=== PATIENT | male | born 1945 | race Caucasian/White ===

== ENCOUNTER 2023-04-19 21:23 | Inpatient (IN) | payer MEDICARE, BC ==
--- NOTE | 2023-04-19 22:25 | ED ---
General Adult HPI - General Chief complaint: Shortness of Breath Stated complaint: SOB, Leg Swelling Time Seen by Provider: 04/19/23 22:00 Source: patient Mode of arrival: ambulatory - History of Present Illness Initial comments: Dictation was produced using [employer] dictation software. please excuse any grammatical, word or spelling errors. Chief Complaint: 77-year-old male who wears home O2 presents to the ER for shortness breath History of Present Illness: Patient is 69-year-old male he has history of COPD, diabetes and heart failure. He states that his been feeling short of breath that his legs have been more swollen. Patient takes diuretics. He has had heart failure exacerbations in the past. Patient states that he doesn't have any chest pain. Denies any cough. No fevers or constitutional symptoms. The ROS documented in this emergency department record has been reviewed and confirmed by me. Those systems with pertinent positive or negative responses have been documented in the HPI. All other systems are other negative and/or noncontributory. - Related Data Allergies Allergy/AdvReac Type Severity Reaction Status Date / Time gabapentin AdvReac Unknown Verified 04/19/23 21:47 Review of Systems ROS Statement: Those systems with pertinent positive or pertinent negative responses have been documented in the HPI. ROS Other: All systems not noted in ROS Statement are negative. Past Medical History Past Medical History: COPD, Diabetes Mellitus Additional Past Medical History / Comment(s): Type 2 diabetic Past Surgical History: Cardiac Valve Replacement, Heart Catheterization With Stent Additional Past Surgical History / Comment(s): open heart surgery 2008 Past Psychological History: No Psychological Hx Reported Smoking Status: Former smoker Past Alcohol Use History: None Reported Past Drug Use History: None Reported General Exam - General Exam Comments Initial Comments: PHYSICAL EXAM: General Impression: Alert and oriented x3, not in acute distress HEENT: Normocephalic atraumatic, extra-ocular movements intact, pupils equal and reactive to light bilaterally, mucous membranes moist. Cardiovascular: Heart regular rate and rhythm Chest: Able to complete full sentences, no retractions, no tachypnea Abdomen: abdomen soft, non-tender, non-distended, no organomegaly Musculoskeletal: Pulses present and equal in all extremities, 2+ edema to the lower extremities Motor: no focal deficits noted Neurological: CN II-XII grossly intact, no focal motor or sensory deficits noted Skin: Intact with no visualized rashes Psych: Normal affect and mood Course Vital Signs 04/19/23 04/19/23 04/19/23 21:40 22:29 23:41 Temperature 97.7 F Pulse Rate 58 L 57 L 61 Respiratory 18 30 H 24 Rate Blood Pressure 176/77 129/84 140/65 O2 Sat by Pulse 96 95 94 L Oximetry EKG Findings - EKG Comments: EKG Findings:: My EKG interpretation: Ventricular rate 59, sinus bradycardia, right bundle branch block MA interval 240, QRS 182, QTC 488. No MA prolongation, no QTC prolongation, no ST or T-wave changes noted. No EKG for comparison Overall, this EKG is nonspecific Medical Decision Making - Medical Decision Making Was pt. sent in by a medical professional or institution (, PA, CRM ANALYST, urgent care, hospital, or long-term...) When possible be specific @ -No Did you speak to anyone other than the patient for history (EMS, parent, family, police, friend...)? What history was obtained from this source @ -No Did you review nursing and triage notes (agree or disagree)? Why? @ -I reviewed and agree with nursing and triage notes Were old charts reviewed (outside hosp., previous admission, EMS record, old EKG, old radiological studies, urgent care reports/EKG's, long-term records)? Report findings @ -No old charts were reviewed Differential Diagnosis (chest pain, altered mental status, abdominal pain women, abdominal pain men, vaginal bleeding, musculoskeletal, weakness, fever, dyspnea, syncope, headache, dizziness, GI bleed, back pain, seizure, CVA, palpatations, mental health)? @ -Differential Dyspnea: Coronary syndrome, arrhythmia, tamponade, asthma, COPD, pulmonary embolism, pneumonia, pneumothorax, pulmonary effusion, anaphylaxis, diabetic ketoacidosis, flailed chest, pulmonary contusion, diaphragmatic rupture, anemia, neuromuscular, this is not meant to be an all-inclusive list. EKG interpreted by me (3pts min.). @ -See above X-rays interpreted by me (1pt min.). @ -Chest x-ray with pleural effusion CT interpreted by me (1pt min.). @ -None done U/S interpreted by me (1pt. min.). @ -None done What testing was considered but not performed or refused? (CT, X-rays, U/S, labs)? Why? @ -None What meds were considered but not given or refused? Why? @ -None Did you discuss the management of the patient with other professionals (professionals i.e. , PA, CRM ANALYST, lab, RT, psych nurse, social sciences professor, barn worker, teacher, commanding officer homicide squad, director case)? Give summary @ -Labs imaging and clinical presentation Case discussed with Lizz from [facility] for admission Was smoking cessation discussed for >3mins.? @ -No Was critical care preformed (if so, how long)? @ -No Were there social determinants of health that impacted care today? How? (Homelessness, low income, unemployed, alcoholism, drug addiction, transportation, low edu. Level, literacy, decrease access to med. care, long term, rehab)? @ -No Was there de-escalation of care discussed even if they declined (Discuss DNR or withdrawal of care, Hospice)? DNR status @ -No What co-morbidities impacted this encounter? (DM, HTN, Smoking, COPD, CAD, Cancer, CVA, ARF, Chemo, Hep., AIDS, mental health diagnosis, sleep apnea, morbid obesity)? @ -None Was patient admitted / discharged? Hospital course, mention meds given and route, prescriptions, significant lab abnormalities, going to OR and other pertinent info. @ -69-year-old male presents emergency department for shortness of breath. Vital signs stable. Clinical presentation suspicious for heart failure. Labs shows elevated BNP. He has elevated troponin likely from troponin leak. X-ray shows mild heart failure. Patient given Lasix will be admitted for diuresis Undiagnosed new problem with uncertain prognosis? @ -No Drug Therapy requiring intensive monitoring for toxicity (Heparin, Nitro, Insulin, Cardizem)? @ -No Were any procedures done? @ -No Diagnosis/symptom? Acute, or Chronic, or Acute on Chronic? Uncomplicated (without systemic symptoms) or Complicated (systemic symptoms)? @ -Heart failure Side effects of treatment? @ -No Exacerbation, Progression, or Severe Exacerbation? @ -No Poses a threat to life or bodily function? How? (Chest pain, USA, CA, pneumonia, PE, COPD, DKA, ARF, appy, cholecystitis, CVA, Diverticulitis, Homicidal, Suici rodrick, threat to staff... and all critical care pts) @ -yes - Lab Data Result diagrams: 04/19/23 22:28 04/19/23 22:28 Lab Results 04/19/23 04/19/23 04/19/23 Range/Units 22:28 22:28 22:28 WBC 7.6 (3.8-10.6) k/uL RBC 4.32 (4.30-5.90) m/uL Hgb 14.1 (13.0-17.5) gm/dL Hct 43.3 (39.0-53.0) % MCV 100.3 H (80.0-100.0) fL MCH 32.6 (25.0-35.0) pg MCHC 32.5 (31.0-37.0) g/dL RDW 15.1 (11.5-15.5) % Plt Count 150 (150-450) k/uL MPV 8.6 Neutrophils % 62 % Lymphocytes % 29 % Monocytes % 6 % Eosinophils % 2 % Basophils % 0 % Neutrophils # 4.7 (1.3-7.7) k/uL Lymphocytes # 2.2 (1.0-4.8) k/uL Monocytes # 0.4 (0-1.0) k/uL Eosinophils # 0.2 (0-0.7) k/uL Basophils # 0.0 (0-0.2) k/uL Macrocytosis Slight PT 10.3 (9.0-12.0) sec INR 1.0 (<1.2) APTT 23.7 (22.0-30.0) sec Sodium 140 (137-145) mmol/L Potassium 4.1 (3.5-5.1) mmol/L Chloride 107 (98-107) mmol/L Carbon Dioxide 23 (22-30) mmol/L Anion Gap 10 mmol/L BUN 33 H (9-20) mg/dL Creatinine 1.31 H (0.66-1.25) mg/dL Est GFR (CKD-EPI)AfAm 60 (>60 ml/min/1.73 sqM) Est GFR (CKD-EPI)NonAf 52 (>60 ml/min/1.73 sqM) Glucose 128 H (74-99) mg/dL Calcium 8.9 (8.4-10.2) mg/dL Total Bilirubin 1.2 (0.2-1.3) mg/dL AST 26 (17-59) U/L ALT 24 (4-49) U/L Alkaline Phosphatase 81 (38-126) U/L Troponin I (0.000-0.034) ng/mL NT-Pro-B Natriuret Pep pg/mL Total Protein 6.6 (6.3-8.2) g/dL Albumin 4.0 (3.5-5.0) g/dL 04/19/23 04/19/23 Range/Units 22:28 22:28 WBC (3.8-10.6) k/uL RBC (4.30-5.90) m/uL Hgb (13.0-17.5) gm/dL Hct (39.0-53.0) % MCV (80.0-100.0) fL MCH (25.0-35.0) pg MCHC (31.0-37.0) g/dL RDW (11.5-15.5) % Plt Count (150-450) k/uL MPV Neutrophils % % Lymphocytes % % Monocytes % % Eosinophils % % Basophils % % Neutrophils # (1.3-7.7) k/uL Lymphocytes # (1.0-4.8) k/uL Monocytes # (0-1.0) k/uL Eosinophils # (0-0.7) k/uL Basophils # (0-0.2) k/uL Macrocytosis PT (9.0-12.0) sec INR (<1.2) APTT (22.0-30.0) sec Sodium (137-145) mmol/L Potassium (3.5-5.1) mmol/L Chloride (98-107) mmol/L Carbon Dioxide (22-30) mmol/L Anion Gap mmol/L BUN (9-20) mg/dL Creatinine (0.66-1.25) mg/dL Est GFR (CKD-EPI)AfAm (>60 ml/min/1.73 sqM) Est GFR (CKD-EPI)NonAf (>60 ml/min/1.73 sqM) Glucose (74-99) mg/dL Calcium (8.4-10.2) mg/dL Total Bilirubin (0.2-1.3) mg/dL AST (17-59) U/L ALT (4-49) U/L Alkaline Phosphatase (38-126) U/L Troponin I 0.047 H* (0.000-0.034) ng/mL NT-Pro-B Natriuret Pep 899 pg/mL Total Protein (6.3-8.2) g/dL Albumin (3.5-5.0) g/dL Disposition Clinical Impression: Congestive heart failure Disposition: ADMITTED IP TO THIS HOSP Condition: Fair Referrals: Nonstaff,Physician [Primary Care Provider] - 1-2 days Decision Time: 00:00
[2023-04-19 22:48] LABS: Basophils % (A) 0 %; Eosinophils # (A) 0.2 k/uL (0-0.7); Eosinophils % (A) 2 %; HCT 43.3 % (39.0-53.0); HGB 14.1 gm/dL (13.0-17.5); Lymphocytes # (A) 2.2 k/uL (1.0-4.8); Lymphocytes % (A) 29 %; MCH 32.6 pg (25.0-35.0); MCHC 32.5 g/dL (31.0-37.0); MCV 100.3 fL (80.0-100.0); Macrocytosis Slight; Mean Platelet Volume 8.6; Monocytes # (A) 0.4 k/uL (0-1.0); Monocytes % (A) 6 %; Neutrophils # (A) 4.7 k/uL (1.3-7.7); Neutrophils % (A) 62 %; Platelet Count 150 k/uL (150-450); RBC 4.32 m/uL (4.30-5.90); RDW 15.1 % (11.5-15.5); WBC 7.6 k/uL (3.8-10.6)
[2023-04-19 22:57] LABS: Partial Thromboplastin Time 23.7 sec (22.0-30.0); Prothrombin Time 10.3 sec (9.0-12.0)
[2023-04-19 23:04] LABS: ALT 24 U/L (4-49); AST 26 U/L (17-59); African American GFR (CKD) 60 (>60 ml/min/1.73 sqM); Alkaline Phosphatase 81 U/L (38-126); Anion Gap 10 mmol/L; Blood Urea Nitrogen 33 mg/dL (9-20); Calcium 8.9 mg/dL (8.4-10.2); Carbon Dioxide 23 mmol/L (22-30); Chloride 107 mmol/L (98-107); Glucose 128 mg/dL (74-99); Non-African American GFR(CKD) 52 (>60 ml/min/1.73 sqM); Potassium 4.1 mmol/L (3.5-5.1); Sodium 140 mmol/L (137-145); Total Bilirubin 1.2 mg/dL (0.2-1.3); Total Protein 6.6 g/dL (6.3-8.2)
--- NOTE | 2023-04-20 | XR ---
EXAM: XR Chest, 2 Views CLINICAL HISTORY: ITS.REASON XR Reason: dyspnea TECHNIQUE: Frontal and lateral views of the chest. COMPARISON: No relevant prior studies available. FINDINGS: Lungs: Unremarkable. No consolidation. Pleural space: Trace LEFT pleural effusion. No pneumothorax. Heart: Cardiomegaly. Mediastinum: Unremarkable. Bones/joints: Unremarkable. Tubes, lines and devices: Scribe the wires. IMPRESSION: Trace LEFT pleural effusion.
[2023-04-20] MEDS ORDERED: ASPIRIN 81 MG PO STA (00:01)
[2023-04-20] MEDS ORDERED: FUROSEMIDE 40 MG TAB PO SCH (00:45)
--- NOTE | 2023-04-20 06:17 | P.CRDCN ---
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 The symptoms started about a week ago and got worse within the last 48 hours. No pain in the chest. No cough or sputum production. No f ever or chills. No symptoms of chest pain or chest discomfort. He was diagnosed with congestive heart failure. He was found to have severe bilateral lower extremity edema and he was hypoxic when he presented to the hospital. Further investigation was performed including an EKG showed sinus mechanism with sinus bradycardia and nonspecific ST and T wave abnormalities and also chest x- ray showed pleural effusion. NT proBNP came in to be around 1000. The troponin came in to be slightly elevated but he has renal failure and he is in heart failure. Currently he is not on any IV diuretics. No prior echo because the patient is visiting here and never been admitted to the hospital before. On examination he does have stable vital signs with severe bilateral lower extremity is pitting edema and diminished breathing sounds. Assessment Heart failure exacerbation with evidence of right and left heart failure of unknown etiology at this point CAD with prior CABG Valvular heart disease status post TAVR Renal failure Overweight Evidence of myocardial injury was no evidence of ischemia Multiple comorbid conditions Plan Start the patient on Lasix at 40 mg IV twice a day Continue monitor the kidney function and electrolytes Consider medical treatment for a mildly abnormal troponin at this point Further recommendation to follow the echocardiogram Past Medical History Past Medical History: COPD, Diabetes Mellitus Additional Past Medical History / Comment(s): Type 2 diabetic History of Any Multi-Drug Resistant Organisms: None Reported Past Surgical History: Cardiac Valve Replacement Additional Past Surgical History / Comment(s): open heart surgery 3 VESSEL 2008, TAVR 2014 Past Anesthesia/Blood Transfusion Reactions: No Reported Reaction Past Psychological History: No Psychological Hx Reported Smoking Status: Former smoker Past Alcohol Use History: None Reported Past Drug Use History: None Reported - Past Family History Father Family Medical History: Cancer, Diabetes Mellitus Medications and Allergies Allergies Allergy/AdvReac Type Severity Reaction Status Date / Time gabapentin AdvReac Unknown Verified 06/16/23 21:47 Physical Exam Vitals: Vital Signs Temp Pulse Pulse Resp BP BP Pulse Ox 04/20/23 04:50 18 04/20/23 04:15 97.4 F L 65 18 129/64 92 L 04/20/23 04:00 97.4 F L 65 18 129/64 92 L 04/20/23 01:32 57 L 24 145/73 95 04/19/23 23:41 61 24 140/65 94 L 04/19/23 22:29 57 L 30 H 129/84 95 04/19/23 21:40 97.7 F 58 L 18 176/77 96 Intake and Output 04/19/23 04/19/23 04/20/23 14:59 22:59 06:59 Other: Voiding Method Toilet Urinal Weight 113.398 kg 119.5 kg Results 04/19/23 22:28 04/19/23 22:28 Cardiac Enzymes 04/19/23 04/19/23 04/20/23 Range/Units 22:28 22:28 01:10 AST 26 (17-59) U/L Troponin I 0.047 H* 0.047 H* (0.000-0.034) ng/mL Coagulation 04/19/23 Range/Units 22:28 PT 10.3 (9.0-12.0) sec APTT 23.7 (22.0-30.0) sec CBC 04/19/23 Range/Units 22:28 WBC 7.6 (3.8-10.6) k/uL RBC 4.32 (4.30-5.90) m/uL Hgb 14.1 (13.0-17.5) gm/dL Hct 43.3 (39.0-53.0) % Plt Count 150 (150-450) k/uL Comprehensive Metabolic Panel 04/19/23 Range/Units 22:28 Sodium 140 (137-145) mmol/L Potassium 4.1 (3.5-5.1) mmol/L Chloride 107 (98-107) mmol/L Carbon Dioxide 23 (22-30) mmol/L BUN 33 H (9-20) mg/dL Creatinine 1.31 H (0.66-1.25) mg/dL Glucose 128 H (74-99) mg/dL Calcium 8.9 (8.4-10.2) mg/dL AST 26 (17-59) U/L ALT 24 (4-49) U/L Alkaline Phosphatase 81 (38-126) U/L Total Protein 6.6 (6.3-8.2) g/dL Albumin 4.0 (3.5-5.0) g/dL Current Medications Generic Name Dose Route Start Last Admin Trade Name Freq PRN Reason Stop Dose Admin Furosemide 40 mg 04/20/23 00:45 04/20/23 00:49 Furosemide 40 Mg Tab PO 40 mg Q8HR HAJA Administration Intake and Output 04/19/23 04/19/23 04/20/23 14:59 22:59 06:59 Other: Voiding Method Toilet Urinal Weight 113.398 kg 119.5 kg Patient Weight 04/20/23 06:59 Weight 119.5 kg 04/19/23 22:28 04/19/23 22:28
[2023-04-20] MEDS: ISOSORBIDE MONONITRATE ER 30 MG TAB.ER.24H PO SCH (10:43)
[2023-04-20] MEDS: TAMSULOSIN 0.4 MG CAP.ER.24H PO SCH (10:43)
[2023-04-20] MEDS: PREGABALIN 75 MG CAP PO SCH ×2 (10:43→21:29)
[2023-04-20] MEDS: METOPROLOL SUCCINATE (ER) 100 MG TAB.ER.24H PO SCH (10:43)
[2023-04-20] MEDS: FUROSEMIDE 10 MG/ML 4 ML VIAL IV SCH ×2 (10:43→21:29)
--- NOTE | 2023-04-20 11:15 | P.HPIM ---
History of Present Illness 77-year-old the male came in with the complaints of shortness of breath and bilateral lower extremity edema. Patient was given IV Lasix with improvement in bilateral pedal edema patient does have history of congestive heart failure although echocardiogram is not available in the system. Patient BNP is around thousand chest x-ray showing pulmonary edema. REVIEW OF SYSTEMS: CONSTITUTIONAL: No fever, no malaise, no fatigue. HEENT: No recent visual problems or hearing problems. Denied any sore throat. CARDIOVASCULAR: No chest pain, orthopnea, PND, no palpitations, no syncope. PULMONARY no hemoptysis. GASTROINTESTINAL: No diarrhea, no nausea, no vomiting, no abdominal pain. NEUROLOGICAL: No headaches, no weakness, no numbness. HEMATOLOGICAL: Denies any bleeding or petechiae. GENITOURINARY: Denies any burning micturition, frequency, or urgency. MUSCULOSKELETAL/RHEUMATOLOGICAL: Denies any joint pain, swelling, or any muscle pain. ENDOCRINE: Denies any polyuria or polydipsia. The rest of the 14-point review of systems is negative. PHYSICAL EXAMINATION: GENERAL: The patient is alert and oriented x3, not in any acute distress. Well developed, well nourished. HEENT: Pupils are round and equally reacting to light. EOMI. No scleral icterus. No conjunctival pallor. Normocephalic, atraumatic. No pharyngeal erythema. No thyromegaly. CARDIOVASCULAR: S1 and S2 present. No murmurs, rubs, or gallops. PULMONARY: Chest is clear to auscultation, no wheezing or crackles. ABDOMEN: Soft, nontender, nondistended, normoactive bowel sounds. No palpable organomegaly. MUSCULOSKELETAL: No joint swelling or deformity. EXTREMITIES: No cyanosis, clubbing, or pedal edema. NEUROLOGICAL: Gross neurological examination did not reveal any focal deficits. SKIN: No rashes. Assessment and plan -Congestive heart failure possible right-sided heart failure and diastolic dysfunction with acute exacerbation: Patient will be continued on IV Lasix today possibility of switching to oral Lasix and discharged tomorrow -Coronary disease and CABG in the past next and-valvular heart disease status post TAVR -Mild acute renal failure: Secondary to congestive heart failure exacerbation expected improvement with Lasix monitor kidney function and electrolytes and urine output -Troponin elevation probably secondary to heart failure -Type 2 diabetes mellitus: Sliding scale insulin DVT prophylaxis: Subcutaneous insulin Past Medical History Past Medical History: COPD, Diabetes Mellitus Additional Past Medical History / Comment(s): Type 2 diabetic History of Any Multi-Drug Resistant Organisms: None Reported Past Surgical History: Cardiac Valve Replacement Additional Past Surgical History / Comment(s): open heart surgery 3 VESSEL 2008, TAVR 2014 Past Anesthesia/Blood Transfusion Reactions: No Reported Reaction Past Psychological History: No Psychological Hx Reported Smoking Status: Former smoker Past Alcohol Use History: None Reported Past Drug Use History: None Reported - Past Family History Father Family Medical History: Cancer, Diabetes Mellitus Medications and Allergies Home Medications Medication Instructions Recorded Confirmed Type Aspirin 81 mg PO DAILY 04/20/23 04/20/23 History Atorvastatin [Lipitor] 40 mg PO DAILY 04/20/23 04/20/23 History Dapagliflozin Propanediol [Farxiga] 10 mg PO DAILY 04/20/23 04/20/23 History Furosemide [Lasix] 40 mg PO BID 04/20/23 04/20/23 History Glimepiride [Amaryl] 4 mg PO BID-W/MEALS 04/20/23 04/20/23 History Glimepiride [Amaryl] 4 mg PO BID-W/MEALS 04/20/23 04/20/23 History Isosorbide Mononitrate [Isosorbide 30 mg PO DAILY 04/20/23 04/20/23 History Mononitrate ER] Metoprolol Succinate (ER) [Toprol 100 mg PO DAILY 04/20/23 04/20/23 History XL] Pregabalin [Lyrica] 75 mg PO BID 04/20/23 04/20/23 History Tamsulosin [Flomax] 0.4 mg PO DAILY 04/20/23 04/20/23 History allopurinoL 100 mg PO DAILY 04/20/23 04/20/23 History metFORMIN HCL [Glucophage] 1,000 mg PO BID 04/20/23 04/20/23 History Allergies Allergy/AdvReac Type Severity Reaction Status Date / Time gabapentin AdvReac Unknown Verified 04/19/23 21:47 Physical Exam Vitals: Vital Signs Temp Pulse Pulse Resp BP BP Pulse Ox 04/20/23 09:14 96 04/20/23 08:05 97.4 F L 66 18 136/61 97 04/20/23 08:00 66 18 04/20/23 04:50 18 04/20/23 04:15 97.4 F L 65 18 129/64 92 L 04/20/23 04:00 97.4 F L 65 18 129/64 92 L 04/20/23 01:32 57 L 24 145/73 95 04/19/23 23:41 61 24 140/65 94 L 04/19/23 22:29 57 L 30 H 129/84 95 04/19/23 21:40 97.7 F 58 L 18 176/77 96 Intake and Output 04/19/23 04/20/23 04/20/23 22:59 06:59 14:59 Intake Total 898 Balance 898 Intake: Oral 898 Other: Voiding Method Toilet Toilet Urinal Urinal Weight 113.398 kg 119.5 kg Results CBC & Chem 7: 04/19/23 22:28 04/19/23 22:28 Labs: Abnormal Lab Results - Last 24 Hours (Table) 04/19/23 04/19/23 04/19/23 Range/Units 22:28 22:28 22:28 MCV 100.3 H (80.0-100.0) fL BUN 33 H (9-20) mg/dL Creatinine 1.31 H (0.66-1.25) mg/dL Glucose 128 H (74-99) mg/dL Troponin I 0.047 H* (0.000-0.034) ng/mL 04/20/23 Range/Units 01:10 MCV (80.0-100.0) fL BUN (9-20) mg/dL Creatinine (0.66-1.25) mg/dL Glucose (74-99) mg/dL Troponin I 0.047 H* (0.000-0.034) ng/mL Thrombosis Risk Factor Assmnt - Choose All That Apply Each Risk Factor Represents 3 Points: Age 75 years or older Thrombosis Risk Factor Assessment Total Risk Factor Score: 3 Thrombosis Risk Factor Assessment Level: Moderate Risk
--- NOTE | 2023-04-20 12:17 | CA ---
Transthoracic Echo Report Name: Forrest Shaver Age: 77 Gender: M : 1945 Exam Date: 04/20/2023 09:22 Exam Location: [facility] Ht (in): 70 Wt (lb): 263 Ordering Physician: Jaren Gambino MD ([id number]) Attending/Referring Phys: Refinery Operator Leslie Rojas RDCS Procedure CPT: Indications: evaluation of the heart Cardiac Hx: 2019 TAVR Technical Quality: Fair Contrast 1: Total Dose (mL): Contrast 2: Total Dose (mL): MEASUREMENTS (Male / Female) Normal Values 2D ECHO LV Diastolic Diameter PLAX 5.9 cm 4.2 - 5.9 / 3.9 - 5.3 cm LV Systolic Diameter PLAX 4.7 cm IVS Diastolic Thickness 1.3 cm 0.6 - 1.0 / 0.6 - 0.9 cm LVPW Diastolic Thickness 1.3 cm 0.6 - 1.0 / 0.6 - 0.9 cm LV Relative Wall Thickness 0.5 RV Internal Dim ED PLAX 4.3 cm LVOT Diameter 2.2 cm LA Systolic Diameter LX 4.6 cm 3.0 - 4.0 / 2.7 - 3.8 cm LV Diastolic Volume MOD BP 124.5 cm??? 67 - 155 / 56 - 104 cm??? LV Systolic Volume MOD BP 62.5 cm??? 22 - 58 / 19 - 49 cm??? LV Ejection Fraction MOD BP 49.8 % >= 55 % LV Diastolic Volume MOD 4C 116.7 cm??? LV Systolic Volume MOD 4C 60.9 cm??? LV Ejection Fraction MOD 4C 47.8 % LV Diastolic Length 4C 8.4 cm LV Systolic Length 4C 7.6 cm LV Diastolic Volume MOD 2C 124.1 cm??? LV Systolic Volume MOD 2C 65.2 cm??? LV Ejection Fraction MOD 2C 47.5 % LV Diastolic Length 2C 7.9 cm LV Systolic Length 2C 7.7 cm LA Volume 81.2 cm??? 18 - 58 / 22 - 52 cm??? M-MODE MV E Point Septal Separation 1.4 cm DOPPLER AV Peak Velocity 306.5 cm/s AV Peak Gradient 37.6 mmHg AV Mean Velocity 220.0 cm/s AV Mean Gradient 21.3 mmHg AV Velocity Time Integral 73.7 cm AI Peak Velocity 238.1 cm/s AI Peak Gradient 22.7 mmHg AI Pressure Half Time 663.1 ms LVOT Peak Velocity 82.3 cm/s LVOT Peak Gradient 2.7 mmHg AV Area Cont Eq pk 1.1 cm??? MV Peak Velocity 173.8 cm/s MV Peak Gradient 12.1 mmHg MV Mean Velocity 106.8 cm/s MV Mean Gradient 5.1 mmHg MV Velocity Time Integral 44.7 cm MV Area PHT 3.8 cm??? Mitral E Point Velocity 132.6 cm/s Mitral A Point Velocity 134.2 cm/s Mitral E to A Ratio 1.0 MV Deceleration Time 198.3 ms MV E' Velocity 4.6 cm/s Mitral E to MV E' Ratio 28.5 TR Peak Velocity 311.5 cm/s TR Peak Gradient 38.8 mmHg Right Ventricular Systolic Press 41.7 mmHg FINDINGS Left Ventricle Left ventricular ejection fraction is estimated at 50-55 %. Left ventricular cavity size normal. Mildly increased septal wall thickness. Mildly increased left ventricular systolic volume. Mildly decreased left ventricular ejection fraction. Right Ventricle Severe right ventricular dilatation. Mild pulmonary hypertension. Mildly reduced right ventricular global systolic function. Right Atrium Normal right atrial size. Left Atrium Mildly increased left atrial diameter. Severely increased left atrial volume. Mildly increased left atrial area. Mitral Valve Moderately decreased mobility of the posterior mitral valve leaflet. Mild mitral annular calcification. [id number] mitral stenosis with mean gradient of 5 mmHg. Mild mitral regurgitation. Aortic Valve Bioprosthetic AOV. Mild aortic stenosis with a peak gradient of 38 mmHg and a mean gradient of 21 mmHg. Mild Periprosthetic regurgitation Tricuspid Valve Structurally normal tricuspid valve. Mild tricuspid regurgitation. Pulmonic Valve Structurally normal pulmonic valve. Mild pulmonic regurgitation. Pericardium Normal pericardium. No pericardial effusion. Aorta Normal size aortic root and proximal ascending aorta. CONCLUSIONS Normal LV systolic function Mitral annular calcification with mild to moderate mitral stenosis and mild to moderate mitral regurgitation Bioprosthetic aortic valve with a mean gradient of 21 mmHg and mild regurgitation Previewed by: Dr. Jaren Gambino MD (Electronically Signed) Final Date: 20 April 2023 12:16
[2023-04-20] MEDS ORDERED: INSULIN ASPART (NovoLOG) 100 UNIT/ML VIAL SQ SCH (12:30)
[2023-04-20 12:37] VITALS: BMI 37.8
[2023-04-20] MEDS: INSULIN ASPART (NovoLOG) 100 UNIT/ML VIAL SQ SCH ×3 (13:13→21:30)
[2023-04-20 16:40] LABS: Glucose,Whole Blood 308 mg/dL (70-110)
[2023-04-20 20:11] LABS: Glucose,Whole Blood 277 mg/dL (70-110)
[2023-04-20] MEDS ORDERED: PREGABALIN 75 MG CAP PO SCH (21:00)
[2023-04-21 06:30] LABS: Glucose,Whole Blood 162 mg/dL (70-110)
[2023-04-21] MEDS: INSULIN ASPART (NovoLOG) 100 UNIT/ML VIAL SQ SCH ×4 (06:50→21:08)
--- NOTE | 2023-04-21 07:34 | P.PN ---
Subjective Progress Note Date: 04/21/23 Principal diagnosis: Heart failure The patient is a pleasant 77-year-old gentleman who sees a technical laboratory asst out of the town and currently he is visiting with known history of CAD and prior CABG and also status post transcutaneous aortic valve replacement as well as hypertension and dyslipidemia and COPD and obesity presented to the hospital complaining of increasing shortness of breath and increasing bilateral lower extremities edema. The symptoms started about a week ago and got worse within the last 48 hours. No pain in the chest. No cough or sputum production. No fever or chills. No symptoms of chest pain or chest discomfort. He was diagnosed with congestive heart failure. He was found to have severe bilateral lower extremity edema and he was hypoxic when he presented to the hospital. Further investigation was performed including an EKG showed sinus mechanism with sinus bradycardia and nonspecific ST and T wave abnormalities and also chest x- ray showed pleural effusion. NT proBNP came in to be around 1000. The troponin came in to be slightly elevated but he has renal failure and he is in heart failure. Currently he is not on any IV diuretics. No prior echo because the patient is visiting here and never been admitted to the hospital before. April 212022 The patient was seen and evaluated this morning. He is feeling better. He is diuresing very well. The shortness of breath has improved as well as the lower extremities edema but he continues to be hypoxic requiring oxygen and on examination he still have bilateral lower extremity edema which has improved compared to before. Blood work including CBC and BMP still pending. The echo revealed normal biventricular dimension and systolic function with bioprosthetic valve and mean gradient across the valve of 20 mmHg. On examination he does have stable vital signs with severe bilateral lower extremity is pitting edema and diminished breathing sounds. Assessment Heart failure exacerbation with evidence of right and left heart failure with preserved ejection fraction CAD with prior CABG Valvular heart disease status post TAVR Renal failure Overweight Evidence of myocardial injury was no evidence of ischemia Multiple comorbid conditions Plan Continue the current medical regimen including the current dose of Lasix IV. The patient remains in failure Continue monitoring the kidney function and electrolytes and follow-up with a blood work from this morning Consider medical treatment for the mildly abnormal troponin at this point Follow-up with the patient Objective - Vital Signs Vital signs: Vital Signs Temp 97.6 F 04/21/23 04:00 Pulse 63 04/21/23 04:00 Resp 18 04/21/23 04:00 BP 134/72 04/21/23 04:00 Pulse Ox 96 04/21/23 04:00 FiO2 Intake & Output 04/20/23 04/21/23 04/21/23 18:59 06:59 18:59 Intake Total 2276 540 Output Total 1600 3800 Balance 676 -3260 Weight 119.5 kg Intake: Oral 2276 540 Output: Urine 1600 3800 Other: Voiding Method Toilet Toilet Urinal Urinal # Voids 4 - Labs CBC & Chem 7: 04/19/23 22:28 04/19/23 22:28 Labs: Abnormal Lab Results - Last 24 Hours (Table) 04/20/23 04/20/23 04/21/23 Range/Units 16:39 20:10 06:29 POC Glucose (mg/dL) 308 H 277 H 162 H (70-110) mg/dL
[2023-04-21 08:14] LABS: HCT 46.6 % (39.0-53.0); HGB 15.2 gm/dL (13.0-17.5); MCH 32.9 pg (25.0-35.0); MCHC 32.6 g/dL (31.0-37.0); MCV 100.9 fL (80.0-100.0); Macrocytosis Slight; Mean Platelet Volume 8.3; Platelet Count 157 k/uL (150-450); RBC 4.62 m/uL (4.30-5.90); RDW 14.8 % (11.5-15.5); WBC 6.4 k/uL (3.8-10.6)
[2023-04-21 08:43] LABS: African American GFR (CKD) 65 (>60 ml/min/1.73 sqM); Anion Gap 8 mmol/L; Blood Urea Nitrogen 30 mg/dL (9-20); Calcium 9.3 mg/dL (8.4-10.2); Carbon Dioxide 28 mmol/L (22-30); Chloride 102 mmol/L (98-107); Glucose 197 mg/dL (74-99); Magnesium 1.8 mg/dL (1.6-2.3); Non-African American GFR(CKD) 56 (>60 ml/min/1.73 sqM); Potassium 4.6 mmol/L (3.5-5.1); Sodium 138 mmol/L (137-145)
[2023-04-21] MEDS ORDERED: TAMSULOSIN 0.4 MG CAP.ER.24H PO SCH (09:00)
[2023-04-21] MEDS ORDERED: ISOSORBIDE MONONITRATE ER 30 MG TAB.ER.24H PO SCH (09:00)
[2023-04-21] MEDS ORDERED: METOPROLOL SUCCINATE (ER) 100 MG TAB.ER.24H PO SCH (09:00)
[2023-04-21] MEDS: PREGABALIN 75 MG CAP PO SCH ×2 (09:42→19:57)
[2023-04-21] MEDS: FUROSEMIDE 10 MG/ML 4 ML VIAL IV SCH ×2 (09:42→19:58)
[2023-04-21] MEDS: DAPAGLIFLOZIN PROPANEDIOL 10 MG TABLET PO SCH (09:42)
[2023-04-21] MEDS: ASPIRIN 81 MG PO SCH (09:42)
[2023-04-21] MEDS: ISOSORBIDE MONONITRATE ER 30 MG TAB.ER.24H PO SCH (09:42)
[2023-04-21] MEDS: allopurinoL 100 MG TAB PO SCH (09:42)
[2023-04-21] MEDS: ATORVASTATIN 40 MG TAB PO SCH (09:42)
[2023-04-21] MEDS: TAMSULOSIN 0.4 MG CAP.ER.24H PO SCH (09:42)
[2023-04-21] MEDS: METOPROLOL SUCCINATE (ER) 100 MG TAB.ER.24H PO SCH (09:43)
--- NOTE | 2023-04-21 11:12 | P.PN ---
Subjective 77-year-old the male came in with the complaints of shortness of breath and bilateral lower extremity edema. Patient was given IV Lasix with improvement in bilateral pedal edema patient does have history of congestive heart failure although echocardiogram is not available in the system. Patient BNP is around thousand chest x-ray showing pulmonary edema. 04/21/2023 patient had around 5 L of urine output patient is feeling much better creati nine continue to improve although patient still has some bilateral pedal edema will require 1 more day of IV Lasix Constitutional: Denied any fatigue denied any fever. Cardio vascular: denied any chest pain, palpitations Gastrointestinal denied any nausea vomiting Pulmonary: Denied any shortness of breath cough Neurologic denied any new focal deficits All inpatient medications were reviewed and appropriate changes in these medications as dictated in the interval history and assessment and plan. PHYSICAL EXAMINATION: GENERAL: The patient is alert and oriented x3, not in any acute distress. Well developed, well nourished. HEENT: Pupils are round and equally reacting to light. EOMI. No scleral icterus. No conjunctival pallor. Normocephalic, atraumatic. No pharyngeal erythema. No thyromegaly. CARDIOVASCULAR: S1 and S2 present. No murmurs, rubs, or gallops. PULMONARY: Chest is clear to auscultation, no wheezing or crackles. ABDOMEN: Soft, nontender, nondistended, normoactive bowel sounds. No palpable organomegaly. MUSCULOSKELETAL: No joint swelling or deformity. EXTREMITIES: No cyanosis, clubbing, still has pedal edema NEUROLOGICAL: Gross neurological examination did not reveal any focal deficits. SKIN: No rashes. Assessment and plan -Congestive heart failure possible right-sided heart failure and diastolic dysfunction with acute exacerbation: Patient will be continued on IV Lasix today possibility of switching to oral Lasix and discharged tomorrow patient had good urine output will need 1 more day of IV Lasix -Coronary disease and CABG in the past next and-valvular heart disease status post TAVR -Mild acute renal failure: Secondary to congestive heart failure exacerbation expected improvement with Lasix monitor kidney function and electrolytes and urine output, improved with IV Lasix -Troponin elevation probably secondary to heart failure -Type 2 diabetes mellitus: Sliding scale insulin DVT prophylaxis: Subcutaneous heparin Objective - Vital Signs Vital signs: Vital Signs Temp 97.6 F 04/21/23 04:00 Pulse 63 04/21/23 04:00 Resp 18 04/21/23 04:00 BP 134/72 04/21/23 04:00 Pulse Ox 96 04/21/23 09:08 FiO2 Intake & Output 04/20/23 04/21/23 04/21/23 18:59 06:59 18:59 Intake Total 2276 540 358 Output Total 1600 3800 Balance 856 -2571 014 Weight 119.5 kg 117.1 kg Intake: Oral 2276 540 358 Output: Urine 1600 3800 Other: Voiding Method Toilet Toilet Urinal Urinal # Voids 4 - Labs CBC & Chem 7: 04/21/23 07:45 04/21/23 07:45 Labs: Abnormal Lab Results - Last 24 Hours (Table) 04/20/23 04/20/23 04/21/23 Range/Units 16:39 20:10 06:29 MCV (80.0-100.0) fL BUN (9-20) mg/dL Glucose (74-99) mg/dL POC Glucose (mg/dL) 308 H 277 H 162 H (70-110) mg/dL 04/21/23 04/21/23 Range/Units 07:45 07:45 MCV 100.9 H (80.0-100.0) fL BUN 30 H (9-20) mg/dL Glucose 197 H (74-99) mg/dL POC Glucose (mg/dL) (70-110) mg/dL
[2023-04-21 11:41] LABS: Glucose,Whole Blood 278 mg/dL (70-110)
[2023-04-21 16:28] LABS: Glucose,Whole Blood 264 mg/dL (70-110)
[2023-04-21 20:46] LABS: Glucose,Whole Blood 261 mg/dL (70-110)
[2023-04-22 06:02] LABS: Glucose,Whole Blood 160 mg/dL (70-110)
[2023-04-22] MEDS: INSULIN ASPART (NovoLOG) 100 UNIT/ML VIAL SQ SCH ×4 (06:08→20:38)
[2023-04-22 08:40] LABS: African American GFR (CKD) 59 (>60 ml/min/1.73 sqM); Anion Gap 8 mmol/L; Blood Urea Nitrogen 35 mg/dL (9-20); Calcium 9.1 mg/dL (8.4-10.2); Carbon Dioxide 29 mmol/L (22-30); Chloride 98 mmol/L (98-107); Glucose 340 mg/dL (74-99); Non-African American GFR(CKD) 51 (>60 ml/min/1.73 sqM); Potassium 4.5 mmol/L (3.5-5.1); Sodium 135 mmol/L (137-145)
[2023-04-22] MEDS: allopurinoL 100 MG TAB PO SCH (09:08)
[2023-04-22] MEDS: DAPAGLIFLOZIN PROPANEDIOL 10 MG TABLET PO SCH (09:08)
[2023-04-22] MEDS: PREGABALIN 75 MG CAP PO SCH ×2 (09:08→20:39)
[2023-04-22] MEDS: ASPIRIN 81 MG PO SCH (09:08)
[2023-04-22] MEDS: FUROSEMIDE 10 MG/ML 4 ML VIAL IV SCH ×2 (09:08→20:38)
[2023-04-22] MEDS: ISOSORBIDE MONONITRATE ER 30 MG TAB.ER.24H PO SCH (09:08)
[2023-04-22] MEDS: ATORVASTATIN 40 MG TAB PO SCH (09:08)
[2023-04-22] MEDS: METOPROLOL SUCCINATE (ER) 100 MG TAB.ER.24H PO SCH (09:08)
[2023-04-22] MEDS: TAMSULOSIN 0.4 MG CAP.ER.24H PO SCH (09:09)
[2023-04-22 11:57] LABS: Glucose,Whole Blood 320 mg/dL (70-110)
--- NOTE | 2023-04-22 12:05 | P.PN ---
Subjective Progress Note Date: 04/22/23 The patient is a pleasant 77-year-old gentleman who sees a cryptologic technician technical out of the town and currently he is visiting with known history of CAD and prior CABG and also status post transcutaneous aortic valve replacement as well as hypertension and dyslipidemia and COPD and obesity presented to the hospital complaining of increasing shortness of breath and increasing bilateral lower extremities edema. The symptoms started about a week ago and got worse within the last 48 hours. No pain in the chest. No cough or sputum production. No fever or chills. No symptoms of chest pain or chest discomfort. He was diagnosed with congestive heart failure. He was found to have severe bilateral lower extremity edema and he was hypoxic when he presented to the hospital. Further investigation was performed including an EKG showed sinus mechanism with sinus bradycardia and nonspecific ST and T wave abnormalities and also chest x- ray showed pleural effusion. NT proBNP came in to be around 1000. The troponin came in to be slightly elevated but he has renal failure and he is in heart failure. Currently he is not on any IV diuretics. No prior echo because the patient is visiting here and never been admitted to the hospital before. April 212022 The patient was seen and evaluated this morning. He is feeling better. He is diuresing very well. The shortness of breath has improved as well as the lower extremities edema but he continues to be hypoxic requiring oxygen and on examination he still have bilateral lower extremity edema which has improved compared to before. Blood work including CBC and BMP still pending. The echo revealed normal biventricular dimension and systolic function with bioprosthetic valve and mean gradient across the valve of 20 mmHg. 04/22 Patient is seen today in follow-up. He is maintained on Lasix 40 mg IV every 12 hours. BUN 35 creatinine 1.33, potassium 4.5. Weight is down to 22-1/2 kg. Fluid is 2200 ML's/24h. Despite patient diuresing well, he continues to have significant fluid overload. On examination he does have stable vital signs with severe bilateral lower extremity is pitting edema and diminished breathing sounds. Assessment Heart failure exacerbation with evidence of right and left heart failure with preserved ejection fraction CAD with prior CABG Valvular heart disease status post TAVR Renal failure Overweight Evidence of myocardial injury was no evidence of ischemia Multiple comorbid conditions Plan Continue the current medical regimen including the current dose of Lasix IV. The patient remains in failure Continue monitoring the kidney function and electrolytes Consider medical treatment for the mildly abnormal troponin at this point Follow-up with the patient Nurse practitioner note has been reviewed, I agree with the documented findings and plan of care. Patient was seen and examined. Objective - Vital Signs Vital signs: Vital Signs Temp 97.5 F L 04/22/23 08:57 Pulse 64 04/22/23 08:57 Resp 18 04/22/23 08:57 BP 122/70 04/22/23 08:57 Pulse Ox 91 L 04/22/23 08:57 FiO2 Intake & Output 04/21/23 04/22/23 04/22/23 18:59 06:59 18:59 Intake Total 1300 180 Output Total 2600 950 1050 Balance -1300 -950 -870 Weight 117 kg Intake: Oral 1300 180 Output: Urine 2600 950 1050 Other: Voiding Method Toilet Toilet Urinal Urinal - Labs CBC & Chem 7: 04/21/23 07:45 04/22/23 08:02 Labs: Abnormal Lab Results - Last 24 Hours (Table) 04/21/23 04/21/23 04/21/23 Range/Units 11:36 16:27 20:45 Sodium (137-145) mmol/L BUN (9-20) mg/dL Creatinine (0.66-1.25) mg/dL Glucose (74-99) mg/dL POC Glucose (mg/dL) 278 H 264 H 261 H (70-110) mg/dL 04/22/23 04/22/23 Range/Units 06:00 08:02 Sodium 135 L (137-145) mmol/L BUN 35 H (9-20) mg/dL Creatinine 1.33 H (0.66-1.25) mg/dL Glucose 340 H (74-99) mg/dL POC Glucose (mg/dL) 160 H (70-110) mg/dL
[2023-04-22 17:02] LABS: Glucose,Whole Blood 210 mg/dL (70-110)
[2023-04-22 20:07] LABS: Glucose,Whole Blood 327 mg/dL (70-110)
--- NOTE | 2023-04-23 03:34 | PN ---
PROGRESS NOTE DATE OF SERVICE: 04/22/2023 SUBJECTIVE: This is a 77-year-old gentleman, who was admitted with CHF acute exacerbation. He is on IV Lasix. The patient still has shortness of breath. OBJECTIVE: VITAL SIGNS: Pulse is 67, blood pressure 130/62, respirations 18. CHEST: A few scattered rhonchi. CARDIOVASCULAR: S1, S2. ABDOMEN: Soft. NERVOUS SYSTEM: Nonfocal. LABORATORY DATA: Creatinine 1.13. ASSESSMENT: 1. Congestive heart failure acute exacerbation with possible acute on chronic diastolic dysfunction. 2. Coronary artery disease, coronary artery bypass graft. 3. Mild acute renal failure. 4. Multiple medical issues. RECOMMENDATIONS: Recommend to continue current management and symptomatic treatment. Continue with diuretics cautiously. Repeat labs in the morning. Closely follow with multiple consultants and further recommendations to follow. See orders for further details. MMODL / IJN: [id number] /
[2023-04-23 06:05] LABS: Glucose,Whole Blood 195 mg/dL (70-110)
[2023-04-23] MEDS: INSULIN ASPART (NovoLOG) 100 UNIT/ML VIAL SQ SCH ×2 (06:08→11:48)
[2023-04-23 07:54] VITALS: RESP 17; TEMP 97.6
[2023-04-23] MEDS: METOPROLOL SUCCINATE (ER) 100 MG TAB.ER.24H PO SCH (08:20)
[2023-04-23] MEDS: ATORVASTATIN 40 MG TAB PO SCH (08:20)
[2023-04-23] MEDS: ISOSORBIDE MONONITRATE ER 30 MG TAB.ER.24H PO SCH (08:20)
[2023-04-23] MEDS: allopurinoL 100 MG TAB PO SCH (08:20)
[2023-04-23] MEDS: ASPIRIN 81 MG PO SCH (08:20)
[2023-04-23] MEDS: DAPAGLIFLOZIN PROPANEDIOL 10 MG TABLET PO SCH (08:20)
[2023-04-23] MEDS: TAMSULOSIN 0.4 MG CAP.ER.24H PO SCH (08:20)
[2023-04-23] MEDS: PREGABALIN 75 MG CAP PO SCH (08:20)
[2023-04-23] MEDS: FUROSEMIDE 10 MG/ML 4 ML VIAL IV SCH (08:21)
[2023-04-23 08:47] LABS: Basophils % (A) 0 %; Eosinophils # (A) 0.1 k/uL (0-0.7); Eosinophils % (A) 2 %; HCT 50.1 % (39.0-53.0); HGB 15.9 gm/dL (13.0-17.5); Lymphocytes # (A) 1.7 k/uL (1.0-4.8); Lymphocytes % (A) 25 %; MCH 32.7 pg (25.0-35.0); MCHC 31.8 g/dL (31.0-37.0); MCV 102.7 fL (80.0-100.0); Macrocytosis Slight; Mean Platelet Volume 8.1; Monocytes # (A) 0.5 k/uL (0-1.0); Monocytes % (A) 7 %; Neutrophils # (A) 4.4 k/uL (1.3-7.7); Neutrophils % (A) 64 %; Platelet Count 161 k/uL (150-450); RBC 4.88 m/uL (4.30-5.90); RDW 14.6 % (11.5-15.5); WBC 6.9 k/uL (3.8-10.6)
[2023-04-23 09:20] LABS: African American GFR (CKD) 55 (>60 ml/min/1.73 sqM); Anion Gap 8 mmol/L; Blood Urea Nitrogen 40 mg/dL (9-20); Calcium 9.4 mg/dL (8.4-10.2); Carbon Dioxide 33 mmol/L (22-30); Chloride 98 mmol/L (98-107); Glucose 205 mg/dL (74-99); Non-African American GFR(CKD) 48 (>60 ml/min/1.73 sqM); Potassium 4.7 mmol/L (3.5-5.1); Sodium 139 mmol/L (137-145)
[2023-04-23 11:30] VITALS: BP 124/70; PULSE 71
[2023-04-23 11:37] LABS: Glucose,Whole Blood 328 mg/dL (70-110)
--- NOTE | 2023-04-23 12:48 | P.PN ---
Subjective Progress Note Date: 04/23/23 The patient is a pleasant 77-year-old gentleman who sees a apricot packer out of the town and currently he is visiting with known history of CAD and prior CABG and also status post transcutaneous aortic valve replacement as well as hypertension and dyslipidemia and COPD and obesity presented to the hospital complaining of increasing shortness of breath and increasing bilateral lower extremities edema. The symptoms started about a week ago and got worse within the last 48 hours. No pain in the chest. No cough or sputum production. No fever or chills. No symptoms of chest pain or chest discomfort. He was diagnosed with congestive heart failure. He was found to have severe bilateral lower extremity edema and he was hypoxic when he presented to the hospital. Further investigation was performed including an EKG showed sinus mechanism with sinus bradycardia and nonspecific ST and T wave abnormalities and also chest x- ray showed pleural effusion. NT proBNP came in to be around 1000. The troponin came in to be slightly elevated but he has renal failure and he is in heart failure. Currently he is not on any IV diuretics. No prior echo because the patient is visiting here and never been admitted to the hospital before. April 212022 The patient was seen and evaluated this morning. He is feeling better. He is diuresing very well. The shortness of breath has improved as well as the lower extremities edema but he continues to be hypoxic requiring oxygen and on examination he still have bilateral lower extremity edema which has improved compared to before. Blood work including CBC and BMP still pending. The echo revealed normal biventricular dimension and systolic function with bioprosthetic valve and mean gradient across the valve of 20 mmHg. 04/22 Patient is seen today in follow-up. He is maintained on Lasix 40 mg IV every 12 hours. BUN 35 creatinine 1.33, potassium 4.5. Weight is down to 22-1/2 kg. Fluid is 2200 ML's/24h. Despite patient diuresing well, he continues to have significant fluid overload. 04/23 Patient continues to have some lower extremity edema and orthopnea. He has been on IV Lasix at 40 mg every 12 hours. He is normally on Lasix 40 mg oral at home. Repeat blood work reveals BUN 40 creatinine 1.41, hemoglobin 15.9. Heart rate is in the 60s and 70s, blood pressure 124/70. On examination he does have stable vital signs with severe bilateral lower extremity is pitting edema and diminished breathing sounds. Assessment Heart failure exacerbation with evidence of right and left heart failure with preserved ejection fraction CAD with prior CABG Valvular heart disease status post TAVR Renal failure Overweight Evidence of myocardial injury was no evidence of ischemia Multiple comorbid conditions Plan Transition IV Lasix to oral at 40 mg twice daily. Continue this at home. Continue current cardiac medications. Patient is cleared for discharge home and a follow-up with his primary apricot packer once he returns home. Nurse practitioner note has been reviewed, I agree with the documented findings and plan of care. Patient was seen and examined. Objective - Vital Signs Vital signs: Vital Signs Temp 97.6 F 04/23/23 07:53 Pulse 67 04/23/23 07:53 Resp 17 04/23/23 07:53 BP 118/68 04/23/23 07:53 Pulse Ox 95 04/23/23 07:53 FiO2 Intake & Output 04/22/23 04/23/23 04/23/23 18:59 06:59 18:59 Intake Total 900 480 Output Total 2400 3100 Balance -1500 -3100 480 Weight 115.7 kg Intake: Oral 900 480 Output: Urine 2400 3100 Other: Voiding Method Toilet Toilet Toilet Urinal Urinal Urinal - Labs CBC & Chem 7: 04/23/23 07:45 04/23/23 07:45 Labs: Abnormal Lab Results - Last 24 Hours (Table) 04/22/23 04/22/23 04/22/23 Range/Units 11:53 17:00 20:06 MCV (80.0-100.0) fL Carbon Dioxide (22-30) mmol/L BUN (9-20) mg/dL Creatinine (0.66-1.25) mg/dL Glucose (74-99) mg/dL POC Glucose (mg/dL) 320 H 210 H 327 H (70-110) mg/dL 04/23/23 04/23/23 04/23/23 Range/Units 06:03 07:45 07:45 MCV 102.7 H (80.0-100.0) fL Carbon Dioxide 33 H (22-30) mmol/L BUN 40 H (9-20) mg/dL Creatinine 1.41 H (0.66-1.25) mg/dL Glucose 205 H (74-99) mg/dL POC Glucose (mg/dL) 195 H (70-110) mg/dL
[2023-04-23] MEDS ORDERED: FUROSEMIDE 40 MG TAB PO SCH (16:00)
--- NOTE | 2023-04-24 06:06 | P.DS ---
Providers Date of admission: 04/23/23 07:40 Expected date of discharge: 04/23/23 Attending physician: Kieran Escalante Consults: 04/20/23 00:43 Consult Physician Routine Consulting Provider: Nick Rivas Consult Reason/Comments: heart failure Do you want consulting provider notified?: Yes Primary care physician: Physician Nonstaff Hospital Course: Final diagnosis -Congestive heart failure possible right-sided heart failure and diastolic dysfunction with acute exacerbation -Coronary disease and CABG in the past -valvular heart disease status post TAVR -Mild acute renal failure: Secondary to congestive heart failure exacerbation -Troponin elevation secondary to heart failure -Type 2 diabetes mellitus -DVT prophylaxis Discharge disposition Patient is being discharged in a stable condition with guarded prognosis to home. Patient will follow-up with Dr. Santoyo in the outpatient setting upon discharge. Patient is to continue with Lasix 40 mg twice daily and follow- up with his front attendant outpatient as scheduled. Total time taken is greater than 35 minutes. Hospital course This is a 77-year-old male who was recently admitted increased [facility] with CHF exacerbation being closely monitored. Patient was maintained on IV Lasix initially requiring oxygen although is currently on room air reporting some improvement in shortness of breath. Patient continues to have lower extremity edema and suggested Omid wraps from the toes up to the thighs and elevate rest. Patient encouraged to follow-up with his front attendant on discharge. Patient also instructed to follow-up with his primary care provider this week. Please refer to consultation notes for further HPI. Currently no reports of chest pain, shortness of breath, or palpitations. Patient is afebrile. No reports of nausea or vomiting and patient is tolerating diet. Patient instructed to limit fluid intake to 45 ounces per day as well as closely monitoring salt intake. Patient will be discharged home today. Physical exam: Gen: This is a 2-year-old male who is awake, alert and oriented 3,, well- nourished, obese HEENT: Head is atraumatic, normocephalic. Pupils equal, round. Sclerae is anicteric. NECK: Supple. No JVD. No lymphadenopathy. No thyromegaly. LUNGS: Diminished breath sounds bilaterally with No wheezes or rhonchi. No intercostal retractions. HEART: S1, S2 are muffled ABDOMEN: Soft. Obese. Bowel sounds are present. No masses. No tenderness. EXTREMITIES: No pedal edema. No calf tenderness. Bilateral lower extremity edema nonpitting NEUROLOGICAL: Patient is awake, alert and oriented x3. Cranial nerves 2 through 12 are grossly intact. Please refer to medication reconciliation sheet for a list of medications. The impression and plan of care has been dictated by Lizz Jackson, Nurse Practitioner as directed. Dr. Boris MD I have performed a history and examination and MDM of this patient, discussed the same with the dictator, and agree with the dictator's assessment and plan as written ,documented as a scribe. Based on total visit time, I have performed more than 50% of the visit. Patient Condition at Discharge: Fair Plan - Discharge Summary Discharge Rx Participant: No New Discharge Prescriptions: Continue Atorvastatin [Lipitor] 40 mg PO DAILY Glimepiride [Amaryl] 4 mg PO DAILY Isosorbide Mononitrate [Isosorbide Mononitrate ER] 30 mg PO DAILY metFORMIN HCL [Glucophage] 1,000 mg PO BID Vitamin B Complex W/Vitamin C 1 tab PO DAILY Insulin Aspart Prot/Insuln Asp [Novolog MIX 70-30 Flexpen] 30 unit SQ DAILY Pregabalin [Lyrica] 75 mg PO BID Tamsulosin [Flomax] 0.4 mg PO DAILY allopurinoL 100 mg PO DAILY Metoprolol Succinate (ER) [Toprol XL] 100 mg PO DAILY Dapagliflozin Propanediol [Farxiga] 10 mg PO DAILY Acetaminophen Tab [Tylenol] 1,000 mg PO Q6H PRN PRN Reason: Fever And/ Or Pain Acetaminophen/Diphenhydramine [Tylenol PM 500-25mg] 1 tab PO HS PRN PRN Reason: Insomnia Albuterol Sulfate [Albuterol Sulfate Hfa] 2 puff INHALATION RT-QID PRN PRN Reason: Shortness Of Breath Ascorbic Acid [Vitamin C] 500 mg PO DAILY Aspirin EC [Ecotrin Low Dose] 81 mg PO DAILY Cyanocobalamin (Vitamin B-12) [Vitamin B-12] 2,000 mcg PO DAILY Changed Furosemide [Lasix] 40 mg PO BID #60 tab Discontinued Zinc Gluconate [Zinc] 50 mg PO DAILY Discharge Medication List Acetaminophen Tab [Tylenol] 1,000 mg PO Q6H PRN 04/20/23 [History] Acetaminophen/Diphenhydramine [Tylenol PM 500-25mg] 1 tab PO HS PRN 04/20/23 [History] Albuterol Sulfate [Albuterol Sulfate Hfa] 2 puff INHALATION RT-QID PRN 04/20/23 [History] Ascorbic Acid [Vitamin C] 500 mg PO DAILY 04/20/23 [History] Aspirin EC [Ecotrin Low Dose] 81 mg PO DAILY 04/20/23 [History] Atorvastatin [Lipitor] 40 mg PO DAILY 04/20/23 [History] Cyanocobalamin (Vitamin B-12) [Vitamin B-12] 2,000 mcg PO DAILY 04/20/23 [History] Dapagliflozin Propanediol [Farxiga] 10 mg PO DAILY 04/20/23 [History] Glimepiride [Amaryl] 4 mg PO DAILY 04/20/23 [History] Insulin Aspart Prot/Insuln Asp [Novolog MIX 70-30 Flexpen] 30 unit SQ DAILY 04/20/23 [History] Isosorbide Mononitrate [Isosorbide Mononitrate ER] 30 mg PO DAILY 04/20/23 [History] Metoprolol Succinate (ER) [Toprol XL] 100 mg PO DAILY 04/20/23 [History] Pregabalin [Lyrica] 75 mg PO BID 04/20/23 [History] Tamsulosin [Flomax] 0.4 mg PO DAILY 04/20/23 [History] Vitamin B Complex W/Vitamin C 1 tab PO DAILY 04/20/23 [History] allopurinoL 100 mg PO DAILY 04/20/23 [History] metFORMIN HCL [Glucophage] 1,000 mg PO BID 04/20/23 [History] Furosemide [Lasix] 40 mg PO BID #60 tab 04/23/23 [Rx] Follow up Appointment(s)/Referral(s): Nonstaff,Physician [Primary Care Provider] - 1-2 days Ambulatory/Diagnostic Orders: Basic Metabolic Panel [LAB.AMB] Time Frame: 3 Days, Location: None Selected Patient Instructions/Handouts: Heart Failure (DC) Activity/Diet/Wound Care/Special Instructions: Activity Limited until follow-up Follow-up primary care provider on discharge Follow-up cardiology outpatient 1-2 weeks Continue with Lasix twice daily and elevate lower extremities, continue using compression stockings or Omid wraps from toes up to thighs and elevate Recommend repeat BMP in 2-3 days Continue fluid restrictions of 45 ounces per day and no extra added salt Continue heart healthy diet Discharge Disposition: HOME SELF-CARE
== END 2023-04-23 14:05 | disposition home or self-care (01) | DRG 291 ==
LOC: EC 21:23 → INTOOBSV 04-20 00:43 → 3SCARD 04-20 00:43 → OBSVTOIN 04-23 07:40
PROVIDERS: ADMIT Hospitalist; ATTEND Hospitalist
DX: I11.0 Hypertensive heart disease with heart failure (principal); I50.33 Acute on chronic diastolic (congestive) heart failure; N17.9 Acute kidney failure, unspecified; I5A Non-ischemic myocardial injury (non-traumatic); E11.9 Type 2 diabetes mellitus without complications; J44.9 Chronic obstructive pulmonary disease, unspecified; Z79.4 Long term (current) use of insulin; E66.9 Obesity, unspecified; Z68.36 Body mass index [BMI] 36.0-36.9, adult; E78.5 Hyperlipidemia, unspecified; I25.10 Atherosclerotic heart disease of native coronary artery without angina pectoris; R09.02 Hypoxemia; Z79.82 Long term (current) use of aspirin; Z79.84 Long term (current) use of oral hypoglycemic drugs; Z79.899 Other long term (current) drug therapy; Z95.1 Presence of aortocoronary bypass graft; Z87.891 Personal history of nicotine dependence; Z95.2 Presence of prosthetic heart valve; Z88.8 Allergy status to other drugs, medicaments and biological substances
CPT/HCPCS: 36415; 71046; 80048; 80053; 83735; 83880; 84484; 85025; 85027; 85610; 85730; 93005; 93306; 94760; 99285

== ENCOUNTER 2024-05-13 15:45 | Inpatient (IN) | payer MEDICARE, BC ==
--- NOTE | 2024-05-13 16:04 | ED ---
SOB HPI - General Source: patient, family, RN notes reviewed Mode of arrival: wheelchair Limitations: no limitations <Cristina Jacob - Last Filed: 05/13/24 16:03> - General Source: patient, family, RN notes reviewed Mode of arrival: wheelchair Limitations: no limitations - History of Present Illness MD Complaint: shortness of breath, cough, chest pain, "asthma attack", anxiety -: days(s) Severity: moderate Severity scale (1-10): 7 Quality: aching, throbbing Consistency: constant Improves With: nothing Worsens With: nothing <Олег Sorto - Last Filed: 05/25/24 01:37> - General Chief Complaint: Shortness of Breath Stated Complaint: SOB Time Seen by Provider: 05/13/24 16:03 - History of Present Illness Initial Comments: Quick note: 78-year-old male presented to ER with chief complaint shortness of breath. Patient has a past medical history significant of heart failure. He states for the past 2 weeks he has been having increasing shortness of breath. He is currently on 3 L nasal cannula oxygen and states he normally wears 2.5 L. Admits to peripheral edema. He denies any chest pain. (Cristina Jacob) This is a 78-year-old male with shortness of breath persistent and significant shortness of breath with COPD known edema known patient does not have a home care doctor in [facility] and is moved to moving to the [facility] (Олег Sorto) - Related Data Home Medications Medication Instructions Recorded Confirmed Atorvastatin [Lipitor] 40 mg PO DAILY 04/20/23 05/13/24 Glimepiride [Amaryl] 4 mg PO BID-W/MEALS 04/20/23 05/13/24 Isosorbide Mononitrate [Isosorbide 30 mg PO DAILY 04/20/23 05/13/24 Mononitrate ER] Metoprolol Succinate (ER) [Toprol 100 mg PO DAILY 04/20/23 05/13/24 XL] Pregabalin [Lyrica] 75 mg PO BID 04/20/23 05/13/24 Tamsulosin [Flomax] 0.4 mg PO DAILY 04/20/23 05/13/24 allopurinoL 100 mg PO DAILY 04/20/23 05/13/24 metFORMIN HCL [Glucophage] 1,000 mg PO BID 04/20/23 05/13/24 Fluticasone Nasal [place] [Flonase 1 spray EA NOSTRIL DAILY 05/13/24 05/13/24 Nasal [place]] Previous Rx's Medication Instructions Recorded Acetaminophen Tab [Tylenol] 650 mg PO Q6HR PRN tab 05/19/24 Budesonide-Formot 160-4.5 Mcg 2 puff INHALATION RT-BID 30 Days 05/19/24 [Symbicort 160-4.5 Mcg Inhaler] #30 each Dapagliflozin Propanediol [Farxiga] 10 mg PO DAILY #30 tab 05/19/24 Furosemide [Lasix] 40 mg PO BID@0900,1600 #60 tab 05/19/24 Insulin Degludec [Tresiba 60 units SQ DAILY #0 05/19/24 Flextouch U-100 Pen] Ipratropium-Albuterol Nebulize 3 ml INHALATION RT-Q4H PRN #100 05/19/24 [Duoneb 0.5 mg-3 mg/3 ml Soln] each Pregabalin [Lyrica] 225 mg PO HS #30 cap 05/19/24 Allergies Allergy/AdvReac Type Severity Reaction Status Date / Time gabapentin Allergy Dyspnea Verified 05/13/24 19:32 Review of Systems ROS Other: All systems not noted in ROS Statement are negative. <Cristina Jacob - Last Filed: 05/13/24 16:03> ROS Other: All systems not noted in ROS Statement are negative. <Олег Sorto - Last Filed: 05/25/24 01:37> ROS Statement: Those systems with pertinent positive or pertinent negative responses have been documented in the HPI. Past Medical History Past Medical History: Heart Failure, COPD, Diabetes Mellitus Additional Past Medical History / Comment(s): Type 2 diabetic History of Any Multi-Drug Resistant Organisms: None Reported Past Surgical History: Cardiac Valve Replacement Additional Past Surgical History / Comment(s): open heart surgery 3 VESSEL 2008, TAVR 2014 Past Anesthesia/Blood Transfusion Reactions: No Reported Reaction Past Psychological History: No Psychological Hx Reported Smoking Status: Former smoker Past Alcohol Use History: None Reported Past Drug Use History: None Reported - Past Family History Father Family Medical History: Cancer, Diabetes Mellitus <Cristina Jacob - Last Filed: 05/13/24 16:03> General Exam Limitations: no limitations <Cristina Jacob - Last Filed: 05/13/24 16:03> General appearance: alert, in no apparent distress, anxious, in distress Head exam: Present: atraumatic, normocephalic, normal inspection Eye exam: Present: normal appearance, PERRL, EOMI. Absent: scleral icterus, conjunctival injection, periorbital swelling ENT exam: Present: normal exam, mucous membranes moist Neck exam: Present: normal inspection. Absent: tenderness, meningismus, lymphadenopathy Respiratory exam: Present: respiratory distress, wheezes, chest wall tenderness, accessory muscle use, decreased breath sounds, prolonged expiratory. Absent: rales, rhonchi, stridor Cardiovascular Exam: Present: regular rate, normal rhythm, normal heart sounds. Absent: systolic murmur, diastolic murmur, rubs, gallop, clicks GI/Abdominal exam: Present: soft, normal bowel sounds. Absent: distended, t enderness, guarding, rebound, rigid Extremities exam: Present: normal inspection, full ROM, normal capillary refill. Absent: tenderness, pedal edema, joint swelling, calf tenderness Back exam: Present: normal inspection Neurological exam: Present: alert, oriented X3, CN II-XII intact Psychiatric exam: Present: normal affect, normal mood Skin exam: Present: warm, dry, intact, normal color. Absent: rash <Олег Sorto - Last Filed: 05/25/24 01:37> - General Exam Comments Initial Comments: Visual Physical Exam Vital signs reviewed General: Well-appearing, nontoxic, no acute distress. Head: Normocephalic, atraumatic Eyes: PERRLA, EOMI ENT: Airway patent Chest: Nonlabored breathing Skin: No visual rash, normal skin tone Neuro: Alert and oriented 3 Musculoskeletal: No gross abnormalities (Cristina Jacob) Course <Олег Sorto - Last Filed: 05/25/24 01:37> Vital Signs 05/13/24 05/13/24 05/13/24 15:56 19:10 19:24 Temperature 97.4 F L Pulse Rate 68 60 69 Respiratory 20 Rate Blood Pressure 148/83 O2 Sat by Pulse 91 L Oximetry 05/13/24 05/13/24 20:29 21:03 Temperature Pulse Rate 60 66 Respiratory 18 18 Rate Blood Pressure 131/65 110/48 O2 Sat by Pulse 95 93 L Oximetry - Reevaluation(s) Reevaluation #1: 05/13/24 18:48 Medical record is reviewed (Олег Sorto) Reevaluation #2: 05/13/24 18:48 Patient symptoms are unchanged (Олег Sorto) Reevaluation #3: 05/13/24 18:48 Patient symptoms are unchanged (Олег Sorto) Reevaluation #4: Was pt. sent in by a medical professional or institution (, [facility], RETIREMENT PLAN COUNSELOR, urgent care, hospital, or retirement...) When possible be specific @ -no Did you speak to anyone other than the patient for history (EMS, parent, family, police, friend...)? What history was obtained from this source @ -no Did you review nursing and triage notes (agree or disagree)? Why? @ -agree Are old charts reviewed (outside hosp., previous admission, EMS record, old EKG, old radiological studies, urgent care reports/EKG's, retirement records)? Report findings @ -yes Differential Diagnosis (chest pain, altered mental status, abdominal pain women, abdominal pain men, vaginal bleeding, weakness, fever, dyspnea, syncope, headache, dizziness, GI bleed, back pain, seizure, CVA, palpatations, mental health, musculoskeletal)? @ -prior EKG interpreted by me (3pts min.). @ -yes X-rays interpreted by me (1pt min.). @ -yes positive for CHF CT interpreted by me (1pt min.). @ -no U/S interpreted by me (1pt. min.). @ -no What testing was considered but not performed or refused? (CT, X-rays, U/S, labs)? Why? @ -none What meds were considered but not given or refused? Why? @ -none Did you discuss the management of the patient with other professionals (professionals i.e. [employer]rows, RETIREMENT PLAN COUNSELOR, lab, RT, psych nurse, social worker palliative care, casing runner, teacher, environmental health officer, caseworker intake)? Give summary @ -no Was smoking cessation discussed for >3mins.? @ -no Was critical care preformed (if so, how long)? @ -yes31 Were there social determinants of health that impacted care today? How? (Homelessness, low income, unemployed, alcoholism, drug addiction, transportation, low edu. Level, literacy, decrease access to med. care, correction, rehab)? @ -none Was there de-escalation of care discussed even if they declined (Discuss DNR or withdrawal of care, Hospice)? DNR status @ -no What co-morbidities impacted this encounter? (DM, HTN, Smoking, COPD, CAD, Cancer, CVA, ARF, Chemo, Hep., AIDS, mental health diagnosis, sleep apnea, morbid obesity)? @ -none Was patient admitted / discharged? Hospital course, mention meds given and route, prescriptions, significant lab abnormalities, going to OR and other pertinent info. @ - 78 male will be admitted for multifactorial respiratory failure COPD and CHF no doctor in town with no follow-up care Admitted, COPD, respiratory failure Undiagnosed new problem with uncertain prognosis? @ -no Drug Therapy requiring intensive monitoring for toxicity (Heparin, Nitro, Insulin, Cardizem)? @ -no Were any procedures done? @ -no Diagnosis/symptom? @ -Heart failure Acute, or Chronic, or Acute on Chronic? @ -Acute Uncomplicated (without systemic symptoms) or Complicated (systemic symptoms)? @ -Complicated Side effects of treatment? @ -no Exacerbation, Progression, or Severe Exacerbation? @ -exacerbation Poses a threat to life or bodily function? How? (Chest pain, [place], [place], pneumonia, PE, COPD, DKA, ARF, appy, cholecystitis, CVA, Diverticulitis, Homicidal, Suicidal, threat to staff... and all critical care pts) @ -yes extremes of age (Олег Sorto) Reevaluation #5: Differential Dyspnea: Coronary syndrome, arrhythmia, tamponade, asthma, COPD, pulmonary embolism, pneumonia, pneumothorax, pulmonary effusion, anaphylaxis, diabetic ketoacidosis, flailed chest, pulmonary contusion, diaphragmatic rupture, anemia, neuromuscular, this is not meant to be an all-inclusive list. (Олег Sorto) - Consultations Consultation #1: Spoke with [facility] who agrees to admit this patient (Олег Sorto) Medical Decision Making <Cristina Jacob - Last Filed: 05/13/24 16:03> - Lab Data Result diagrams: 05/19/24 07:13 05/19/24 07:13 - EKG Data -: EKG Interpreted by Me - Radiology Data Radiology results: report reviewed (Chest x-ray positive for CHF), image reviewed <Олег Sorto - Last Filed: 05/25/24 01:37> - Medical Decision Making I performed the quick note portion of this chart. Electronically signed by Cristina Jacob PA-C (Cristina Jacob) 78 male will be admitted for multifactorial respiratory failure COPD and CHF no doctor in town with no follow-up care (Олег Sorto) - Lab Data Lab Results 05/13/24 05/13/24 05/13/24 Range/Units 16:38 16:38 16:38 WBC 7.2 (3.8-10.6) k/uL RBC 5.17 (4.30-5.90) m/uL Hgb 16.7 (13.0-17.5) gm/dL Hct 51.5 (39.0-53.0) % MCV 99.6 (80.0-100.0) fL MCH 32.3 (25.0-35.0) pg MCHC 32.4 (31.0-37.0) g/dL RDW 15.3 (11.5-15.5) % Plt Count 158 (150-450) k/uL MPV 9.2 Neutrophils % 62 % Lymphocytes % 26 % Monocytes % 7 % Eosinophils % 3 % Basophils % 1 % Neutrophils # 4.5 (1.3-7.7) k/uL Lymphocytes # 1.9 (1.0-4.8) k/uL Monocytes # 0.5 (0-1.0) k/uL Eosinophils # 0.2 (0-0.7) k/uL Basophils # 0.1 (0-0.2) k/uL Macrocytosis Slight Sodium 138 (137-145) mmol/L Potassium 4.2 (3.5-5.1) mmol/L Chloride 105 (98-107) mmol/L Carbon Dioxide 26 (22-30) mmol/L Anion Gap 7 mmol/L BUN 41 H (9-20) mg/dL Creatinine 1.33 H (0.66-1.25) mg/dL Est GFR (CKD-EPI)AfAm 59 (>60 ml/min/1.73 sqM) Est GFR (CKD-EPI)NonAf 51 (>60 ml/min/1.73 sqM) Glucose 278 H (74-99) mg/dL POC Glucose (mg/dL) (70-110) mg/dL POC Glu Police Judge ID Estimated Ave Glu mg/dL mg/dL Hemoglobin A1c (<=6.0) % Calcium 9.6 (8.4-10.2) mg/dL Total Bilirubin 1.3 (0.2-1.3) mg/dL AST 19 (17-59) U/L ALT 15 (4-49) U/L Alkaline Phosphatase 88 (38-126) U/L Troponin I 0.016 (0.000-0.034) ng/mL NT-Pro-B Natriuret Pep 824 pg/mL Total Protein 6.8 (6.3-8.2) g/dL Albumin 4.1 (3.5-5.0) g/dL 05/13/24 05/13/24 05/13/24 Range/Units 16:38 20:56 21:30 WBC (3.8-10.6) k/uL RBC (4.30-5.90) m/uL Hgb (13.0-17.5) gm/dL Hct (39.0-53.0) % MCV (80.0-100.0) fL MCH (25.0-35.0) pg MCHC (31.0-37.0) g/dL RDW (11.5-15.5) % Plt Count (150-450) k/uL MPV Neutrophils % % Lymphocytes % % Monocytes % % Eosinophils % % Basophils % % Neutrophils # (1.3-7.7) k/uL Lymphocytes # (1.0-4.8) k/uL Monocytes # (0-1.0) k/uL Eosinophils # (0-0.7) k/uL Basophils # (0-0.2) k/uL Macrocytosis Sodium (137-145) mmol/L Potassium (3.5-5.1) mmol/L Chloride (98-107) mmol/L Carbon Dioxide (22-30) mmol/L Anion Gap mmol/L BUN (9-20) mg/dL Creatinine (0.66-1.25) mg/dL Est GFR (CKD-EPI)AfAm (>60 ml/min/1.73 sqM) Est GFR (CKD-EPI)NonAf (>60 ml/min/1.73 sqM) Glucose (74-99) mg/dL POC Glucose (mg/dL) 226 H (70-110) mg/dL POC Glu Police Judge ID Gina Benjamin [address] Glu mg/dL 272 mg/dL Hemoglobin A1c 11.1 H (<=6.0) % Calcium (8.4-10.2) mg/dL Total Bilirubin (0.2-1.3) mg/dL AST (17-59) U/L ALT (4-49) U/L Alkaline Phosphatase (38-126) U/L Troponin I 0.014 (0.000-0.034) ng/mL NT-Pro-B Natriuret Pep pg/mL Total Protein (6.3-8.2) g/dL Albumin (3.5-5.0) g/dL 05/14/24 05/14/24 Range/Units 05:06 13:05 WBC (3.8-10.6) k/uL RBC (4.30-5.90) m/uL Hgb (13.0-17.5) gm/dL Hct (39.0-53.0) % MCV (80.0-100.0) fL MCH (25.0-35.0) pg MCHC (31.0-37.0) g/dL RDW (11.5-15.5) % Plt Count (150-450) k/uL MPV Neutrophils % % Lymphocytes % % Monocytes % % Eosinophils % % Basophils % % Neutrophils # (1.3-7.7) k/uL Lymphocytes # (1.0-4.8) k/uL Monocytes # (0-1.0) k/uL Eosinophils # (0-0.7) k/uL Basophils # (0-0.2) k/uL Macrocytosis Sodium (137-145) mmol/L Potassium (3.5-5.1) mmol/L Chloride (98-107) mmol/L Carbon Dioxide (22-30) mmol/L Anion Gap mmol/L BUN (9-20) mg/dL Creatinine (0.66-1.25) mg/dL Est GFR (CKD-EPI)AfAm (>60 ml/min/1.73 sqM) Est GFR (CKD-EPI)NonAf (>60 ml/min/1.73 sqM) Glucose (74-99) mg/dL POC Glucose (mg/dL) 369 H 531 H* (70-110) mg/dL POC Glu Police Judge ID Jean Marie Benjaminyuli Tanner [address]ev [address] Glu mg/dL mg/dL Hemoglobin A1c (<=6.0) % Calcium (8.4-10.2) mg/dL Total Bilirubin (0.2-1.3) mg/dL AST (17-59) U/L ALT (4-49) U/L Alkaline Phosphatase (38-126) U/L Troponin I (0.000-0.034) ng/mL NT-Pro-B Natriuret Pep pg/mL Total Protein (6.3-8.2) g/dL Albumin (3.5-5.0) g/dL Critical Care Time Critical Care Time: Yes Total Critical Care Time: 31 <Олег Sorto - Last Filed: 05/25/24 01:37> Disposition <Cristina Jacob - Last Filed: 05/13/24 16:03> Is patient prescribed a controlled substance at d/c from ED?: No Time of Disposition: 20:40 <Олег Sorto - Last Filed: 05/25/24 01:37> Clinical Impression: Congestive heart failure, Acute exacerbation of chronic obstructive pulmonary disease, Systolic congestive heart failure Disposition: ADMITTED IP TO THIS HOSP Condition: Fair
[2024-05-13 17:03] LABS: Basophils # (A) 0.1 k/uL (0-0.2); Basophils % (A) 1 %; Eosinophils # (A) 0.2 k/uL (0-0.7); Eosinophils % (A) 3 %; HCT 51.5 % (39.0-53.0); HGB 16.7 gm/dL (13.0-17.5); Lymphocytes # (A) 1.9 k/uL (1.0-4.8); Lymphocytes % (A) 26 %; MCH 32.3 pg (25.0-35.0); MCHC 32.4 g/dL (31.0-37.0); MCV 99.6 fL (80.0-100.0); Macrocytosis Slight; Mean Platelet Volume 9.2; Monocytes # (A) 0.5 k/uL (0-1.0); Monocytes % (A) 7 %; Neutrophils # (A) 4.5 k/uL (1.3-7.7); Neutrophils % (A) 62 %; Platelet Count 158 k/uL (150-450); RBC 5.17 m/uL (4.30-5.90); RDW 15.3 % (11.5-15.5); WBC 7.2 k/uL (3.8-10.6)
[2024-05-13 17:06] LABS: ALT 15 U/L (4-49); AST 19 U/L (17-59); African American GFR (CKD) 59 (>60 ml/min/1.73 sqM); Albumin 4.1 g/dL (3.5-5.0); Alkaline Phosphatase 88 U/L (38-126); Anion Gap 7 mmol/L; Blood Urea Nitrogen 41 mg/dL (9-20); Calcium 9.6 mg/dL (8.4-10.2); Carbon Dioxide 26 mmol/L (22-30); Chloride 105 mmol/L (98-107); Glucose 278 mg/dL (74-99); Non-African American GFR(CKD) 51 (>60 ml/min/1.73 sqM); Potassium 4.2 mmol/L (3.5-5.1); Sodium 138 mmol/L (137-145); Total Bilirubin 1.3 mg/dL (0.2-1.3); Total Protein 6.8 g/dL (6.3-8.2)
[2024-05-13 17:13] LABS: NT-Pro-B-Type Natriuretic Pept 824 pg/mL
--- NOTE | 2024-05-13 17:16 | XR ---
EXAMINATION TYPE: XR chest 2V DATE OF EXAM: 05/13/2024 4:48 PM CLINICAL INDICATION:Male, 78 years old with history of SOB; [facility] COMPARISON: Chest radiographs from 04/19/2023. TECHNIQUE: XR chest 2V Frontal view of the chest. FINDINGS: Lungs/Pleura: Prominent interstitial lung markings are seen scattered throughout the lungs with salena ening of the diaphragm and increased lucency of the lung apices. No evidence of focal consolidation, pneumothorax or pleural effusion. Pulmonary vascularity: Unremarkable. Heart/mediastinum: Cardiomediastinal silhouette is enlarged and stable. Post aortic valve repair yen nges. Musculoskeletal: No acute osseous pathology. Midline sternotomy wires are noted. IMPRESSION: 1. Cardiomegaly and mild pulmonary vascular congestion. Correlate with BNP for congestive heart fail ure. 2. COPD.
[2024-05-13] MEDS ORDERED: NALOXONE 0.4 MG/ML 1 ML VIAL IVP PRN (18:33)
[2024-05-13] MEDS: IPRATROPIUM-ALBUTEROL 3 ML NEB INHALATION STA (19:08)
[2024-05-13] MEDS: methylPREDNISolone SOD SUCCI 125 MG/2 ML VIAL IV STA (20:26)
[2024-05-13] MEDS: FUROSEMIDE 10 MG/ML 4 ML VIAL IV SCH (20:27)
[2024-05-13 21:31] LABS: Glucose,Whole Blood 226 mg/dL (70-110)
[2024-05-13] MEDS ORDERED: DEXTROSE 50% SYRINGE 50 ML IVP PRN ×2 (22:01)
[2024-05-13] MEDS: PREGABALIN 75 MG CAP PO SCH (22:17)
[2024-05-13] MEDS: INSULIN ASPART (NovoLOG) 100 UNIT/ML VIAL SQ SCH (22:17)
[2024-05-13] MEDS: ACETAMINOPHEN TAB 325 MG TAB PO PRN (22:41)
[2024-05-14] MEDS ORDERED: ALBUTEROL NEBULIZED 2.5 MG/3 ML INHALATION SCH
[2024-05-14] MEDS: HYDROcodone/APAP 5-325MG 1 EACH TAB PO STA (00:51)
[2024-05-14] MEDS: methylPREDNISolone SOD SUCCI 125 MG/2 ML VIAL IV SCH (01:30)
[2024-05-14] MEDS: SODIUM CHLORIDE 0.9% 1,000 ML IV SCH (02:18)
[2024-05-14] MEDS: IPRATROPIUM-ALBUTEROL 3 ML NEB INHALATION PRN (03:13)
[2024-05-14 05:09] LABS: Glucose,Whole Blood 369 mg/dL (70-110)
--- NOTE | 2024-05-14 07:07 | P.PN ---
Subjective The patient is a pleasant 78-year-old gentleman who sees a Dr Santiago out of the town and currently he is visiting with known history of CAD and prior CABG and also status post surgical then transcutaneous aortic valve replacement as well as hypertension and dyslipidemiaDM2, peripheral neuropathy and COPD and obesity presented to the hospital complaining of increasing shortness of breath and increasing bilateral lower extremities edema. He states that he has been having increasing shortness breath or last few months however especially increased lower extremity edema over the last week. He talked to his primary care physician who advised him to take double his Lasix taking it twice a day however did not really notice any significant improvement and therefore came to emergency department. He denies any chest pain or pressure. Denies any lightheadedness. He has been feeling significantly fatigued however also he was started on Lyrica and we discussed this may be causing some of his fatigue. He has significant bilateral neuropathy of his lower extremities. He has history of CABG however has not had any repeat stenting. He states he had a stress test approximately 6 months ago and does not know the results however believes was normal. CABG and surgical aortic valve replacement were performed in 2004 and transcatheter valve replacement performed in 2015. creatinine 1.3 which is his baseline. Prior echo showed EF 50% with mild to moderate aortic stenosis and mild paravalvular leak. EKG shows sinus rhythm with prolonged MS interval, right bundle branch block, nonspecific ST depressions V1 through V3 with left axis deviation, Q waves inferiorly. REVIEW OF SYSTEMS At the time of my exam: CONSTITUTIONAL: Denies fever or chills. CARDIOVASCULAR: Denies chest pain, shortness of breath, orthopnea, PND or palpitations. RESPIRATORY: Denies cough. GASTROINTESTINAL: Denies abdominal pain, diarrhea, constipation, nausea or vomiting. MUSCULOSKELETAL: Denies myalgias. NEUROLOGIC: Denies numbness, tingling or weakness. ENDOCRINE: Denies fatigue, weight change, polydipsia or polyurina. GENITOURINARY: Denies burning, hematuria or urgency with micturation. HEMATOLOGIC: Denies history of anemia or bleeding. PHYSICAL EXAMINATION Vital signs reviewed. CONSTITUTIONAL: No apparent distress. HEENT: Head is normocephalic. Pupils are equal, round. Sclerae anicteric. Mucous membranes of the mouth are moist. No JVD. No carotid bruit. CHEST EXAMINATION: Lungs are clear to auscultation. No chest wall tenderness is noted on palpation or with deep breathing. HEART EXAMINATION: Regular rate and rhythm. S1, S2 heard. +2/6 systolic murmur, nogallops or rub. ABDOMEN: Soft, nontender. Positive bowel sounds. EXTREMITIES: 2+ peripheral pulses, 2+ lower extremity edema and no calf tenderness. NEUROLOGIC EXAMINATION: Patient is awake, alert and oriented x3. Assessment Acute on chronic diastolic heart failure CAD with prior CABG Valvular heart disease status post TAVR CKD Obesity diabetes mellitus type 2 Peripheral neuropathy Plan continue with diuretics. Ideally SGLT 2 inhibitor for his heart failure as well as diabetes. Add Farxiga and evaluate expense. DM2 regimen may need to be adjusted Obtain records from Dr. Santiago. Check 2-D echo No significant evidence of ischemia with apparently normal stress test 6 months ago Objective - Vital Signs Vital signs: Vital Signs Temp 97.7 F 05/14/24 02:02 Pulse 65 05/14/24 03:27 Resp 18 05/14/24 02:02 BP 148/81 05/14/24 02:02 Pulse Ox 98 05/14/24 02:02 FiO2 Intake & Output 05/13/24 05/13/24 05/14/24 06:59 18:59 06:59 Intake Total 1772 Output Total 2400 Balance -628 Weight 114.305 kg 117 kg Intake: Oral 1772 Output: Urine 2400 Other: Voiding Method Urinal - Labs CBC & Chem 7: 05/13/24 16:38 05/13/24 16:38 Labs: Abnormal Lab Results - Last 24 Hours (Table) 05/13/24 05/13/24 05/14/24 Range/Units 16:38 21:30 05:06 BUN 41 H (9-20) mg/dL Creatinine 1.33 H (0.66-1.25) mg/dL Glucose 278 H (74-99) mg/dL POC Glucose (mg/dL) 226 H 369 H (70-110) mg/dL
[2024-05-14] MEDS: DAPAGLIFLOZIN PROPANEDIOL 10 MG TABLET PO SCH (08:57)
--- NOTE | 2024-05-14 12:36 | CA ---
Transthoracic Echo Report Name: Forrest Shaver Age: 78 Gender: M : 1945 Exam Date: 05/14/2024 10:42 Exam Location: [facility] Ht (in): 70 Wt (lb): 252 Ordering Physician: Олег Sorto DO Attending/Referring Phys: [id number], [place] Physician Executive Leslie Rojas RDCS Procedure CPT: Indications: Heart failure Cardiac Hx: CABG, TAVR Technical Quality: Fair Contrast 1: Total Dose (mL): Contrast 2: Total Dose (mL): MEASUREMENTS (Male / Female) Normal Values 2D ECHO LV Diastolic Diameter PLAX 5.4 cm 4.2 - 5.9 / 3.9 - 5.3 cm LV Systolic Diameter PLAX 4.1 cm IVS Diastolic Thickness 1.2 cm 0.6 - 1.0 / 0.6 - 0.9 cm LVPW Diastolic Thickness 1.3 cm 0.6 - 1.0 / 0.6 - 0.9 cm LV Relative Wall Thickness 0.5 RV Internal Dim ED PLAX 4.1 cm LA Systolic Diameter LX 4.6 cm 3.0 - 4.0 / 2.7 - 3.8 cm LV Diastolic Volume MOD 4C 97.0 cm??? LV Systolic Volume MOD 4C 54.7 cm??? LV Ejection Fraction MOD 4C 43.6 % LV Cardiac Index MOD 4C 1537.7 cm???/min???m??? LV Diastolic Length 4C 9.1 cm LV Systolic Length 4C 7.8 cm LV Diastolic Volume MOD 2C 144.7 cm??? LV Systolic Volume MOD 2C 86.3 cm??? LV Ejection Fraction MOD 2C 40.4 % LV Cardiac Index MOD 2C 2124.3 cm???/min???m??? LV Diastolic Length 2C 9.4 cm LV Systolic Length 2C 8.1 cm LA Volume 72.0 cm??? 18 - 58 / 22 - 52 cm??? LA Volume Index 29.8 cm???/m??? 16 - 28 cm???/m??? M-MODE Aortic Root Diameter MM 2.9 cm DOPPLER AV Peak Velocity 270.8 cm/s AV Peak Gradient 29.3 mmHg AV Mean Velocity 192.9 cm/s AV Mean Gradient 16.7 mmHg AV Velocity Time Integral 55.5 cm LVOT Peak Velocity 124.1 cm/s LVOT Peak Gradient 6.2 mmHg LVOT Velocity Time Integral 22.3 cm MV Area PHT 4.3 cm??? MV Deceleration Time 135.9 ms TR Peak Velocity 320.0 cm/s TR Peak Gradient 41.0 mmHg Right Ventricular Systolic Press 44.9 mmHg FINDINGS Left Ventricle Left ventricular ejection fraction is estimated at 45 %. Left ventricular cavity size normal. Mild concentric left ventricular hypertrophy. Right Ventricle Severe right ventricular dilatation. Moderate pulmonary hypertension. Right Atrium Severe right atrial dilatation. No right atrial thrombus or mass seen. Left Atrium Mildly increased left atrial diameter. Mildly increased left atrial volume. Mildly increased left atrial area. Mitral Valve Structurally normal mitral valve. Mitral annular calcification. Trace to mild mitral regurgitation. Aortic Valve Normally functioning bioprosthetic aortic valve without stenosis with a peak velocity of 2.7 m/s, peak gradient 29 mmHg, mean gradient 17 mmHg Tricuspid Valve Structurally normal tricuspid valve. Moderate tricuspid regurgitation. Pulmonic Valve Structurally normal pulmonic valve. No pulmonic regurgitation. Pericardium No pericardial effusion. Aorta Normal size aortic root and proximal ascending aorta. CONCLUSIONS Left ventricular ejection fraction 45% RVSP 45 Trace to mild mitral regurgitation Normally functioning bioprosthetic aortic valve with peak velocity 2.7 m/s, mean gradient 17 No perivalvular leak Moderate tricuspid regurgitation Previewed by: Dr. Nick Rivas DO (Electronically Signed) Final Date: 14 May 2024 12:36
--- NOTE | 2024-05-14 12:58 | P.CNPUL ---
History of Present Illness Consult date: 05/14/24 Requesting physician: Kieran Escalante Reason for consult: dyspnea, hypoxemia Chief complaint: Shortness of breath and lower extremity edema x 2 weeks History of present illness: This is a pleasant 78-year-old male patient with a history of congestive heart failure, coronary artery disease with previous CABG x 3 in 2008, TAVR in 2014, former smoker, oxygen dependent chronic obstructive pulmonary disease, obstructive sleep apnea not using CPAP, diabetes melitis. He presented to the emergency room yesterday with a 2-week history of progressive shortness of breath and lower extremity edema. Chest x-ray reveals evidence of cardiomegaly and mild pulmonary vascular congestion. Underlying COPD. Echocardiogram reveals impaired left ventricular systolic function with ejection fraction of 45%. Severe right ventricular dilatation with moderate pulmonary hypertension, normally functioning bioprosthetic aortic valve. White count 7.2. Hemoglobin 16.7. Platelet count 158. Sodium 138. Potassium 4.2. Bicarb 26. BUN 41. Creatinine 1.33. Glucose 278. Troponin negative x 2. proBNP 824. Regular medical floor. He is currently sitting up in bed. Awake and alert in no acute distress. He is breathing a bit easier today compared to yesterday. He has been initiated on Lasix 40 mg IV every 8 hours. Urine output greater than 3 L thus far. Review of Systems REVIEW OF SYSTEMS: CONSTITUTIONAL: Denies any recent significant weight loss or weight gain. EYES: Denies change in vision. EARS, NOSE, MOUTH, THROAT: Denies headaches, denies sore throat. CARDIOVASCULAR: Denies chest pain, palpitations or syncopal episodes. RESPIRATORY: Positive for shortness of breath, no cough, congestion or hemoptysis. GASTROINTESTINAL: Denies change in appetite, denies abdominal pain GENITOURINARY: Denies hematuria, denies infections. MUSKULOSKELETAL: Positive for lower extremity swelling. INTEGUMENTARY: Denies rash, denies eczema. NEUROLOGICAL: Denies recent memory loss, no recent seizure activity. PSYCHIATRIC: Denies anxiety, denies depression. HEMATOLOGIC/LYMPHATIC: Denies anemia, denies enlarged lymph nodes. Past Medical History Past Medical History: Heart Failure, COPD, Diabetes Mellitus Additional Past Medical History / Comment(s): Type 2 diabetic History of Any Multi-Drug Resistant Organisms: None Reported Past Surgical History: Cardiac Valve Replacement Additional Past Surgical History / Comment(s): open heart surgery 3 VESSEL 2008, TAVR 2014 Past Anesthesia/Blood Transfusion Reactions: No Reported Reaction Past Psychological History: No Psychological Hx Reported Smoking Status: Former smoker Past Alcohol Use History: None Reported Past Drug Use History: None Reported - Past Family History Father Family Medical History: Cancer, Diabetes Mellitus Medications and Allergies Home Medications Medication Instructions Recorded Confirmed Type Atorvastatin [Lipitor] 40 mg PO DAILY 04/20/23 05/13/24 History Glimepiride [Amaryl] 4 mg PO BID-W/MEALS 04/20/23 05/13/24 History Isosorbide Mononitrate [Isosorbide 30 mg PO DAILY 04/20/23 05/13/24 History Mononitrate ER] Metoprolol Succinate (ER) [Toprol 100 mg PO DAILY 04/20/23 05/13/24 History XL] Pregabalin [Lyrica] 75 mg PO BID 04/20/23 05/13/24 History Tamsulosin [Flomax] 0.4 mg PO DAILY 04/20/23 05/13/24 History allopurinoL 100 mg PO DAILY 04/20/23 05/13/24 History metFORMIN HCL [Glucophage] 1,000 mg PO BID 04/20/23 05/13/24 History Furosemide [Lasix] 40 mg PO BID #60 tab 04/23/23 05/13/24 Rx Fluticasone Nasal [place] [Flonase 1 spray EA NOSTRIL DAILY 05/13/24 05/13/24 History Nasal [place]] Insulin Degludec [Tresiba 50 units SQ DAILY 05/13/24 05/13/24 History Flextouch U-100 Pen] Allergies Allergy/AdvReac Type Severity Reaction Status Date / Time gabapentin Allergy Dyspnea Verified 05/13/24 19:32 Physical Exam Vitals: Vital Signs Temp Pulse Pulse Resp BP BP Pulse Ox 05/14/24 09:24 86 88 L 05/14/24 09:13 94 05/14/24 07:00 97.7 F 79 18 143/73 93 L 05/14/24 03:27 65 05/14/24 03:13 62 05/14/24 02:02 97.7 F 80 18 148/81 98 05/14/24 02:00 80 05/13/24 22:21 64 05/13/24 21:40 97.7 F 64 17 133/75 94 L 05/13/24 21:03 66 18 110/48 93 L 05/13/24 20:29 60 18 131/65 95 05/13/24 19:24 69 05/13/24 19:10 60 05/13/24 15:56 97.4 F L 68 20 148/83 91 L Intake and Output 05/13/24 05/14/24 05/14/24 22:59 06:59 14:59 Intake Total 1772 180 Output Total 2400 900 Balance -628 -720 Intake: Oral 1772 180 Output: Urine 2400 900 Other: Voiding Method Urinal Urinal Weight 114.305 kg 117 kg GENERAL EXAM: Alert, pleasant 78-year-old male, on 3 L nasal cannula, sitting up at the bedside, fairly comfortable in no apparent distress. HEAD: Normocephalic. EYES: Normal reaction of pupils, equal size. NOSE: Clear with pink turbinates. THROAT: No erythema or exudates. NECK: No masses, no JVD. CHEST: No chest wall deformity. LUNGS: Equal air entry with crackles in the bilateral bases. CVS: S1 and S2 normal with no audible murmur, regular rhythm. ABDOMEN: No hepatosplenomegaly, normal bowel sounds, no guarding or rigidity. SPINE: No scoliosis or deformity SKIN: No rashes CENTRAL NERVOUS SYSTEM: No focal deficits, tone is normal in all 4 extremities. EXTREMITIES: There is 1-2+ peripheral edema. No clubbing, no cyanosis. Peripheral pulses are intact. Results - Laboratory Findings CBC and BMP: 05/13/24 16:38 05/13/24 16:38 Abnormal lab findings: Abnormal Labs 05/13/24 05/13/24 05/14/24 16:38 21:30 05:06 BUN 41 H Creatinine 1.33 H Glucose 278 H POC Glucose (mg/dL) 226 H 369 H - Diagnostic Findings Chest x-ray: image reviewed Assessment and Plan Assessment: Acute on chronic hypoxemic respiratory failure secondary to an acute exacerbation of systolic congestive heart failure Chronic obstructive pulmonary disease, oxygen dependent Former smoker Moderate pulmonary hypertension History of obstructive sleep apnea, not utilizing CPAP Aortic valve stenosis, status post TAVR in 2014 functioning normally on echocardiogram Coronary artery disease, status post CABG x 3 in 2008 Diabetes mellitus Hypertension Hyperlipidemia History of gout Plan: The patient was seen and evaluated Chest x-ray, labs and medications reviewed Echocardiogram reviewed Continue with Lasix 40 mg IV every 8 hours Titrate the FiO2 as tolerated Continue bronchodilators as needed We will continue to follow and make further recommendations based on his clinical status I have personally seen and examined the patient, performed the documentation and the assessment and plan as written. Number of minutes spent on the visit: 20.
[2024-05-14 13:06] LABS: Glucose,Whole Blood 531 mg/dL (70-110)
[2024-05-14 14:25] VITALS: BMI 37.0
[2024-05-14] MEDS: INSULIN DETEMIR (LEVEMIR) 100 UNIT/ML SYR SQ SCH (14:48)
[2024-05-14 17:33] LABS: Glucose,Whole Blood 514 mg/dL (70-110)
[2024-05-14] MEDS: INSULIN ASPART (NovoLOG) 100 UNIT/ML VIAL SQ ONE ×2 (18:39→21:13)
[2024-05-14] MEDS: INSULIN DETEMIR (LEVEMIR) 100 UNIT/ML SYR SQ ONE (18:41)
[2024-05-14] MEDS: PREGABALIN 75 MG CAP PO SCH (20:48)
[2024-05-14 20:49] LABS: Glucose,Whole Blood 426 mg/dL (70-110)
[2024-05-14 21:03] LABS: Glucose,Whole Blood 420 mg/dL (70-110)
--- NOTE | 2024-05-15 01:04 | P.HPIM ---
History of Present Illness H&P Date: 05/14/24 Chief Complaint: Leg swelling Patient is a 78-year-old male with a past medical history of CHF, COPD on home oxygen, diabetes type 2 and history of CABG in 2008 and TAVR in 2014, prior history of smoking presents to ER with complaints of worsening shortness of breath and leg swelling for the past 2 weeks. Denies any fever or chills. Patient does have cough without any sputum production. Chest x-ray on admission showed cardiomegaly and mild pulmonary vascular congestion and correlate with the BNP for CHF. COPD. 2D echocardiogram showed ejection fraction 45% with RVSP 45 moderate MR and normally functioning bioprosthetic aortic valve. Laboratory test showed WBC 7.2 hemoglobin 16.7 platelets 158 BUN 41 creatinine 1.33 and blood sugar 278 and A1c 11.1 and liver enzymes are not elevated. Troponin x 2 negative. Albumin 4.1 and proBNP 824. Review of Systems Constitutional: Patient denies any fever or chills . No generalized weakness or weight loss. Abdomen: Patient denied nausea vomiting and diarrhea and abdominal pain. Cardiovascular: Patient denies any chest pain positive for short of breath no palpitations. Worsening leg swelling. Respiratory: patient denied any cough or sputum production. Positive shortness of breath Neurologic: Patient denied any numbness or tingling. no headache. Musculoskeletal: Patient denies any complaints of joint swelling or deformity. Skin: Negative Psychiatric: Negative Endocrine: No heat or cold intolerance. No recent weight gain. Genitourinary: No dysuria or hematuria. All other 14 point ROS negative except the above Past Medical History Past Medical History: Heart Failure, COPD, Diabetes Mellitus Additional Past Medical History / Comment(s): Type 2 diabetic History of Any Multi-Drug Resistant Organisms: None Reported Past Surgical History: Cardiac Valve Replacement Additional Past Surgical History / Comment(s): open heart surgery 3 VESSEL 2008, TAVR 2014 Past Anesthesia/Blood Transfusion Reactions: No Reported Reaction Past Psychological History: No Psychological Hx Reported Smoking Status: Former smoker Past Alcohol Use History: None Reported Past Drug Use History: None Reported - Past Family History Father Family Medical History: Cancer, Diabetes Mellitus Medications and Allergies Home Medications Medication Instructions Recorded Confirmed Type Atorvastatin [Lipitor] 40 mg PO DAILY 04/20/23 05/13/24 History Glimepiride [Amaryl] 4 mg PO BID-W/MEALS 04/20/23 05/13/24 History Isosorbide Mononitrate [Isosorbide 30 mg PO DAILY 04/20/23 05/13/24 History Mononitrate ER] Metoprolol Succinate (ER) [Toprol 100 mg PO DAILY 04/20/23 05/13/24 History XL] Pregabalin [Lyrica] 75 mg PO BID 04/20/23 05/13/24 History Tamsulosin [Flomax] 0.4 mg PO DAILY 04/20/23 05/13/24 History allopurinoL 100 mg PO DAILY 04/20/23 05/13/24 History metFORMIN HCL [Glucophage] 1,000 mg PO BID 04/20/23 05/13/24 History Furosemide [Lasix] 40 mg PO BID #60 tab 04/23/23 05/13/24 Rx Fluticasone Nasal [place] [Flonase 1 spray EA NOSTRIL DAILY 05/13/24 05/13/24 History Nasal [place]] Insulin Degludec [Tresiba 50 units SQ DAILY 05/13/24 05/13/24 History Flextouch U-100 Pen] Allergies Allergy/AdvReac Type Severity Reaction Status Date / Time gabapentin Allergy Dyspnea Verified 05/13/24 19:32 Physical Exam Vitals: Vital Signs Temp Pulse Pulse Resp BP BP Pulse Ox 05/14/24 09:24 86 88 L 05/14/24 09:13 94 05/14/24 07:00 97.7 F 79 18 143/73 93 L 05/14/24 03:27 65 05/14/24 03:13 62 05/14/24 02:02 97.7 F 80 18 148/81 98 05/14/24 02:00 80 05/13/24 22:21 64 05/13/24 21:40 97.7 F 64 17 133/75 94 L 05/13/24 21:03 66 18 110/48 93 L 05/13/24 20:29 60 18 131/65 95 05/13/24 19:24 69 05/13/24 19:10 60 05/13/24 15:56 97.4 F L 68 20 148/83 91 L Intake and Output 05/13/24 05/14/24 05/14/24 22:59 06:59 14:59 Intake Total 1772 180 Output Total 2400 Balance -628 180 Intake: Oral 1772 180 Output: Urine 2400 Other: Voiding Method Urinal Urinal Weight 114.305 kg 117 kg PHYSICAL EXAMINATION: Patient is lying in the bed comfortably, no acute distress, awake alert and oriented.. HEENT: Normocephalic. Neck is supple. Pupils reactive. Nostrils clear. Oral cavity is moist. Neck reveals no JVD, carotid bruits, or thyromegaly. CHEST EXAMINATION: Trachea is central. Symmetrical expansion. Bibasilar diminished sounds otherwise lung dawkins clear to auscultation and percussion. CARDIAC: Normal S1, S2 with no gallops. No murmurs ABDOMEN: Soft. Bowel sounds normal. No organomegaly. No abdominal bruits. Extremities: Bilateral lower extremity 3+ edema. No clubbing or cyanosis Neurologically awake, alert, oriented x3 with well-coordinated movements. No focal deficits noted Skin: No rash or skin lesions. Psychiatric: Coperative. Nonsuicidal Musculoskeletal: No joint swelling or deformity. Normal range of motion. Results CBC & Chem 7: 05/13/24 16:38 05/13/24 16:38 Labs: Abnormal Lab Results - Last 24 Hours (Table) 05/13/24 05/13/24 05/14/24 Range/Units 16:38 21:30 05:06 BUN 41 H (9-20) mg/dL Creatinine 1.33 H (0.66-1.25) mg/dL Glucose 278 H (74-99) mg/dL POC Glucose (mg/dL) 226 H 369 H (70-110) mg/dL Thrombosis Risk Factor Assmnt - DVT/VTE Prophylaxis DVT/VTE Prophylaxis: Pharmacologic Prophylaxis ordered - Choose All That Apply Any of the Below Risk Factors Present?: Yes Each Factor Represents 1 point: Abnormal pulmonary function (COPD), Obesity (BMI >25) Other Risk Factors: Yes Each Risk Factor Represents 3 Points: Age 75 years or older Other congenital or acquired thrombophilia - If yes, enter type in comment: No Thrombosis Risk Factor Assessment Total Risk Factor Score: 5 Thrombosis Risk Factor Assessment Level: High Risk Assessment and Plan Assessment: Acute on chronic hypoxic respiratory failure patient is currently on 3 L oxygen via nasal cannula. Acute on chronic CHF with systolic function ejection fraction 45% Hyperglycemia is uncontrolled diabetes type 2 A1c 11.1 History of TAVR in 2015 Obstructive sleep apnea not using CPAP at home Moderate pulmonary hypertension COPD Chronic hypoxic respiratory failure secondary to COPD on home oxygen History of coronary artery disease status post CABG in 2008 CKD stage III with baseline creatinine 1.2 to 1.3 Hypertension Hyperlipidemia History of gout Bilateral lower extremity peripheral neuropathy DVT prophylaxis with heparin subcu Plan: Patient will be continued on telemonitoring. Continue with IV Lasix 40 mg every 8 hourly and monitor renal function closely. Continue to titrate down oxygen. Continue with DuoNebs. 2D echocardiogram was done. Cardiology and pulmonary is on board. Continue to follow closely. Prognosis is guarded. Time with Patient: Greater than 30
[2024-05-15 06:06] LABS: Glucose,Whole Blood 342 mg/dL (70-110)
[2024-05-15] MEDS: INSULIN DETEMIR (LEVEMIR) 100 UNIT/ML SYR SQ SCH ×2 (06:31→21:14)
[2024-05-15 08:49] LABS: Basophils # (A) 0.01 X 10*3/uL (0.00-0.10); Basophils % (A) 0.1 %; Eosinophils # (A) 0.01 X 10*3/uL (0.04-0.35); Eosinophils % (A) 0.1 %; HCT 47.2 % (39.6-50.0); HGB 16.1 g/dL (13.0-17.0); Lymphocytes # (A) 1.22 X 10*3/uL (0.90-5.00); Lymphocytes % (A) 9.5 %; MCH 33.2 pg (27.0-32.0); MCHC 34.1 g/dL (32.0-37.0); MCV 97.3 FL (80.0-97.0); Mean Platelet Volume 12.1 FL (9.5-12.2); Monocytes # (A) 1.08 X 10*3/uL (0.20-1.00); Monocytes % (A) 8.4 %; NRBC Per 100 WBC 0 X 10*3/uL (0.00-0.01); Neutrophils # (A) 10.51 X 10*3/uL (1.80-7.70); Neutrophils % (A) 81.4 %; Platelet Count 175 X 10*3/uL (140-440); RBC 4.85 X 10*6/uL (4.40-5.60); RDW 15.1 % (11.5-14.5); WBC 12.89 X 10*3/uL (4.50-10.00)
[2024-05-15 08:54] LABS: Blood Urea Nitrogen 56.4 mg/dL (9.0-27.0); Calcium 9.7 mg/dL (8.7-10.3); Carbon Dioxide 23.5 mmol/L (21.6-31.8); Chloride 96 mmol/L (96-109); Glucose 454 mg/dL (70-110); Potassium 4.1 mmol/L (3.5-5.5); Sodium 137 mmol/L (135-145)
[2024-05-15] MEDS: TAMSULOSIN 0.4 MG CAP.ER.24H PO SCH (09:04)
[2024-05-15] MEDS: HEPARIN SODIUM,PORCINE 5,000 UNIT/ML 1 ML VIAL SQ SCH (09:04)
[2024-05-15] MEDS: ISOSORBIDE MONONITRATE ER 30 MG TAB.ER.24H PO SCH (09:04)
[2024-05-15] MEDS: PREGABALIN 75 MG CAP PO SCH (09:04)
[2024-05-15] MEDS: ATORVASTATIN 40 MG TAB PO SCH (09:04)
[2024-05-15] MEDS: allopurinoL 100 MG TAB PO SCH (09:04)
[2024-05-15] MEDS: METOPROLOL SUCCINATE (ER) 100 MG TAB.ER.24H PO SCH (09:05)
[2024-05-15] MEDS: FLUTICASONE NASAL 50MCG/SPRAY 16GM BTL EA NOSTRIL SCH (09:05)
--- NOTE | 2024-05-15 11:40 | P.PN ---
Subjective The patient is a pleasant 78-year-old gentleman who sees a Dr Santiago out of the town and currently he is visiting with known history of CAD and prior CABG and also status post surgical then transcutaneous aortic valve replacement as well as hypertension and dyslipidemiaDM2, peripheral neuropathy and COPD and obesity presented to the hospital complaining of increasing shortness of breath and increasing bilateral lower extremities edema. He states that he has been having increasing shortness breath or last few months however especially increased lower extremity edema over the last week. He talked to his primary care physician who advised him to take double his Lasix taking it twice a day however did not really notice any significant improvement and therefore came to emergency department. He denies any chest pain or pressure. Denies any lightheadedness. He has been feeling significantly fatigued however also he was started on Lyrica and we discussed this may be causing some of his fatigue. He has significant bilateral neuropathy of his lower extremities. He has history of CABG however has not had any repeat stenting. He states he had a stress test approximately 6 months ago and does not know the results however believes was normal. CABG and surgical aortic valve replacement were performed in 2004 and transcatheter valve replacement performed in 2014. creatinine 1.3 which is his baseline. Prior echo showed EF 50% with mild to moderate aortic stenosis and mild paravalvular leak. EKG shows sinus rhythm with prolonged SC interval, right bundle branch block, nonspecific ST depressions V1 through V3 with left axis deviation, Q waves inferiorly. 05/15 Patient seen and examined. Patient underwent an echocardiogram which shows left ventricular EF 45% with normally functioning bioprosthetic aortic valve with peak velocity 2.7 m/s, moderate tricuspid regurgitation and RVSP 45. He remains on diuretics. His creatinine did go up to 2.0 and his blood pressures have been relatively stable. He admits to some dribbling of his urine and we will check postvoid residuals. PHYSICAL EXAMINATION Vital signs reviewed. CONSTITUTIONAL: No apparent distress. HEENT: Head is normocephalic. Pupils are equal, round. Sclerae anicteric. Mucous membranes of the mouth are moist. No JVD. No carotid bruit. CHEST EXAMINATION: Lungs are clear to auscultation. No chest wall tenderness is noted on palpation or with deep breathing. HEART EXAMINATION: Regular rate and rhythm. S1, S2 heard. +2/6 systolic murmur, nogallops or rub. ABDOMEN: Soft, nontender. Positive bowel sounds. EXTREMITIES: 2+ peripheral pulses, 2+ lower extremity edema and no calf tenderness. NEUROLOGIC EXAMINATION: Patient is awake, alert and oriented x3. Assessment Acute on chronic diastolic heart failure CAD with prior CABG Valvular heart disease status post TAVR CASSANDRA CKD Obesity diabetes mellitus type 2 Peripheral neuropathy Plan Echo shows relatively preserved EF 45% without significant valvular disease. He does have a CASSANDRA may be related to urinary retention and check postvoid residuals. Continue with diuretics for now with significant lower extremity edema. Monitor response. Objective - Vital Signs Vital signs: Vital Signs Temp 97.5 F L 05/15/24 07:00 Pulse 67 05/15/24 07:00 Resp 18 05/15/24 07:00 BP 125/67 05/15/24 07:00 Pulse Ox 96 05/15/24 07:00 FiO2 Intake & Output 05/14/24 05/15/24 05/15/24 18:59 06:59 18:59 Intake Total 1242 278 Output Total 2900 1000 Balance -1658 -1000 278 Weight 117 kg 118.4 kg Intake: Oral 1242 278 Output: Urine 2900 1000 Other: Voiding Method Urinal Urinal Urinal - Labs CBC & Chem 7: 05/15/24 03:17 05/15/24 03:17 Labs: Abnormal Lab Results - Last 24 Hours (Table) 05/13/24 05/14/24 05/14/24 Range/Units 16:38 13:05 17:32 WBC (4.50-10.00) X 10*3/uL MCV (80.0-97.0) FL MCH (27.0-32.0) pg RDW (11.5-14.5) % Immature Gran # (0.00-0.04) X 10*3/uL Neutrophils # (1.80-7.70) X 10*3/uL Monocytes # (0.20-1.00) X 10*3/uL Eosinophils # (0.04-0.35) X 10*3/uL Anion Gap (4.00-12.00) mmol/L BUN (9.0-27.0) mg/dL Creatinine (0.6-1.5) mg/dL Est GFR (CKD-EPI) (>=60) BUN/Creatinine Ratio (12.00-20.00) Ratio Glucose (70-110) mg/dL POC Glucose (mg/dL) 531 H* 514 H* (70-110) mg/dL Hemoglobin A1c 11.1 H (<=6.0) % 05/14/24 05/14/24 05/15/24 Range/Units 20:47 21:02 03:17 WBC 12.89 H (4.50-10.00) X 10*3/uL MCV 97.3 H (80.0-97.0) FL MCH 33.2 H (27.0-32.0) pg RDW 15.1 H (11.5-14.5) % Immature Gran # 0.06 H (0.00-0.04) X 10*3/uL Neutrophils # 10.51 H (1.80-7.70) X 10*3/uL Monocytes # 1.08 H (0.20-1.00) X 10*3/uL Eosinophils # 0.01 L (0.04-0.35) X 10*3/uL Anion Gap (4.00-12.00) mmol/L BUN (9.0-27.0) mg/dL Creatinine (0.6-1.5) mg/dL Est GFR (CKD-EPI) (>=60) BUN/Creatinine Ratio (12.00-20.00) Ratio Glucose (70-110) mg/dL POC Glucose (mg/dL) 426 H 420 H (70-110) mg/dL Hemoglobin A1c (<=6.0) % 05/15/24 05/15/24 Range/Units 03:17 06:04 WBC (4.50-10.00) X 10*3/uL MCV (80.0-97.0) FL MCH (27.0-32.0) pg RDW (11.5-14.5) % Immature Gran # (0.00-0.04) X 10*3/uL Neutrophils # (1.80-7.70) X 10*3/uL Monocytes # (0.20-1.00) X 10*3/uL Eosinophils # (0.04-0.35) X 10*3/uL Anion Gap 17.50 H (4.00-12.00) mmol/L BUN 56.4 H (9.0-27.0) mg/dL Creatinine 2.0 H (0.6-1.5) mg/dL Est GFR (CKD-EPI) 33 L (>=60) BUN/Creatinine Ratio 28.20 H (12.00-20.00) Ratio Glucose 454 H (70-110) mg/dL POC Glucose (mg/dL) 342 H (70-110) mg/dL Hemoglobin A1c (<=6.0) %
--- NOTE | 2024-05-15 12:17 | P.PN ---
Subjective Progress Note Date: 05/15/24 This is a pleasant 78-year-old male patient with a history of congestive heart failure, coronary artery disease with previous CABG x 3 in 2008, TAVR in 2014, former smoker, oxygen dependent chronic obstructive pulmonary disease, obstructive sleep apnea not using CPAP, diabetes melitis. He presented to the emergency room yesterday with a 2-week history of progressive shortness of breath and lower extremity edema. Chest x-ray reveals evidence of cardiomegaly and mild pulmonary vascular congestion. Underlying COPD. Echocardiogram reveals impaired left ventricular systolic function with ejection fraction of 45%. Severe right ventricular dilatation with moderate pulmonary hypertension, normally functioning bioprosthetic aortic valve. White count 7.2. Hemoglobin 16.7. Platelet count 158. Sodium 138. Potassium 4.2. Bicarb 26. BUN 41. Creatinine 1.33. Glucose 278. Troponin negative x 2. proBNP 824. Regular medical floor. He is currently sitting up in bed. Awake and alert in no acute distress. He is breathing a bit easier today compared to yesterday. He has been initiated on Lasix 40 mg IV every 8 hours. Urine output greater than 3 L thus far. The patient is seen today 05/15/2024 in follow-up on the regular medical floor. He is currently sitting up at the bedside. Awake and alert in no acute distress. He is maintaining O2 saturations in the 90s on 3 L/min per nasal can nula. He is afebrile. Hemodynamically stable. White count 12.8. Hemoglobin 16.1. Platelets 175. Sodium 137. Potassium 4.1. Bicarb 24. BUN 56. Creatinine 2.0. Glucose 454. He remains on Lasix 40 mg IV every 8 hours. Continued on bronchodilators. Heparin for DVT prophylaxis. Objective - Vital Signs Vital signs: Vital Signs Temp 97.5 F L 05/15/24 07:00 Pulse 67 05/15/24 07:00 Resp 18 05/15/24 07:00 BP 125/67 05/15/24 07:00 Pulse Ox 96 05/15/24 07:00 FiO2 Intake & Output 05/14/24 05/15/24 05/15/24 18:59 06:59 18:59 Intake Total 1242 278 Output Total 2900 1000 Balance -1658 -1000 278 Weight 117 kg 118.4 kg Intake: Oral 1242 278 Output: Urine 2900 1000 Other: Voiding Method Urinal Urinal Urinal - Exam GENERAL EXAM: Alert, 78-year-old male, on 3 L nasal cannula, sitting up, comfortable in no apparent distress. HEAD: Normocephalic. EYES: Normal reaction of pupils, equal size. NOSE: Clear with pink turbinates. THROAT: No erythema or exudates. NECK: No masses, no JVD. CHEST: No chest wall deformity. LUNGS: Equal air entry with crackles in the bilateral bases. CVS: S1 and S2 normal with no audible murmur, regular rhythm. ABDOMEN: No hepatosplenomegaly, normal bowel sounds, no guarding or rigidity. SPINE: No scoliosis or deformity SKIN: No rashes CENTRAL NERVOUS SYSTEM: No focal deficits, tone is normal in all 4 extremities. EXTREMITIES: There is 1-2+ peripheral edema. No clubbing, no cyanosis. Peripheral pulses are intact. - Labs CBC & Chem 7: 05/15/24 03:17 05/15/24 03:17 Labs: Abnormal Lab Results - Last 24 Hours (Table) 05/13/24 05/14/24 05/14/24 Range/Units 16:38 13:05 17:32 WBC (4.50-10.00) X 10*3/uL MCV (80.0-97.0) FL MCH (27.0-32.0) pg RDW (11.5-14.5) % Immature Gran # (0.00-0.04) X 10*3/uL Neutrophils # (1.80-7.70) X 10*3/uL Monocytes # (0.20-1.00) X 10*3/uL Eosinophils # (0.04-0.35) X 10*3/uL Anion Gap (4.00-12.00) mmol/L BUN (9.0-27.0) mg/dL Creatinine (0.6-1.5) mg/dL Est GFR (CKD-EPI) (>=60) BUN/Creatinine Ratio (12.00-20.00) Ratio Glucose (70-110) mg/dL POC Glucose (mg/dL) 531 H* 514 H* (70-110) mg/dL Hemoglobin A1c 11.1 H (<=6.0) % 05/14/24 05/14/24 05/15/24 Range/Units 20:47 21:02 03:17 WBC 12.89 H (4.50-10.00) X 10*3/uL MCV 97.3 H (80.0-97.0) FL MCH 33.2 H (27.0-32.0) pg RDW 15.1 H (11.5-14.5) % Immature Gran # 0.06 H (0.00-0.04) X 10*3/uL Neutrophils # 10.51 H (1.80-7.70) X 10*3/uL Monocytes # 1.08 H (0.20-1.00) X 10*3/uL Eosinophils # 0.01 L (0.04-0.35) X 10*3/uL Anion Gap (4.00-12.00) mmol/L BUN (9.0-27.0) mg/dL Creatinine (0.6-1.5) mg/dL Est GFR (CKD-EPI) (>=60) BUN/Creatinine Ratio (12.00-20.00) Ratio Glucose (70-110) mg/dL POC Glucose (mg/dL) 426 H 420 H (70-110) mg/dL Hemoglobin A1c (<=6.0) % 05/15/24 05/15/24 Range/Units 03:17 06:04 WBC (4.50-10.00) X 10*3/uL MCV (80.0-97.0) FL MCH (27.0-32.0) pg RDW (11.5-14.5) % Immature Gran # (0.00-0.04) X 10*3/uL Neutrophils # (1.80-7.70) X 10*3/uL Monocytes # (0.20-1.00) X 10*3/uL Eosinophils # (0.04-0.35) X 10*3/uL Anion Gap 17.50 H (4.00-12.00) mmol/L BUN 56.4 H (9.0-27.0) mg/dL Creatinine 2.0 H (0.6-1.5) mg/dL Est GFR (CKD-EPI) 33 L (>=60) BUN/Creatinine Ratio 28.20 H (12.00-20.00) Ratio Glucose 454 H (70-110) mg/dL POC Glucose (mg/dL) 342 H (70-110) mg/dL Hemoglobin A1c (<=6.0) % Assessment and Plan Assessment: Acute on chronic hypoxemic respiratory failure secondary to an acute exacerbation of systolic congestive heart failure Chronic obstructive pulmonary disease, oxygen dependent Former smoker Moderate pulmonary hypertension History of obstructive sleep apnea, not utilizing CPAP Aortic valve stenosis, status post TAVR in 2014 functioning normally on echocardiogram Coronary artery disease, status post CABG x 3 in 2008 Diabetes mellitus Hypertension Hyperlipidemia History of gout Plan: The patient was seen and evaluated Labs and medications reviewed Remains on IV diuretics, bronchodilators The patient has home oxygen and a nebulizer Probable discharge in the a.m. We will continue to follow I have personally seen and examined the patient, performed the documentation and the assessment and plan as written. Number of minutes spent on the visit: 10.
[2024-05-15 12:45] LABS: Glucose,Whole Blood 405 mg/dL (70-110)
[2024-05-15] MEDS: INSULIN ASPART (NovoLOG) 100 UNIT/ML VIAL SQ SCH (13:29)
[2024-05-15 17:11] LABS: Glucose,Whole Blood 293 mg/dL (70-110)
[2024-05-15 20:18] LABS: Glucose,Whole Blood 326 mg/dL (70-110)
[2024-05-16 06:19] LABS: Glucose,Whole Blood 185 mg/dL (70-110)
--- NOTE | 2024-05-16 08:16 | P.PN ---
Subjective Progress Note Date: 05/15/24 Patient is a 78-year-old male with a past medical history of CHF, COPD on home oxygen, diabetes type 2 and history of CABG in 2008 and TAVR in 2014, prior history of smoking presents to ER with complaints of worsening shortness of breath and leg swelling for the past 2 weeks. Denies any fever or chills. Patient does have cough without any sputum production. Chest x-ray on admission showed cardiomegaly and mild pulmonary vascular congestion and correlate with the BNP for CHF. COPD. 2D echocardiogram showed ejection fraction 45% with RVSP 45 moderate MR and normally functioning bioprosthetic aortic valve. Laboratory test showed WBC 7.2 hemoglobin 16.7 platelets 158 BUN 41 creatinine 1.33 and blood sugar 278 and A1c 11.1 and liver enzymes are not elevated. Troponin x 2 negative. Albumin 4.1 and proBNP 824. 05/15/2024 Patient is seen and evaluated in follow-up this morning continues to have shortness of breath with cough and congestion. Patient is being followed by pulmonary as well as cardiology with CHF exacerbation, COPD as well. Patient continued on breathing treatments along with IV Lasix and cardiology recommending continuing on IV Lasix with close monitoring of kidney functions as patient does continue to have significant overload. Swelling is noted to be improved somewhat of the lower extremities. Encouraged the patient to elevate lower extremities and use compression stockings and/or Omid wraps to bilateral lower extremities. Patient also has been instructed to increase activity as tolerated. Patient is a diabetic and extremely uncontrolled with hyperglycemia will adjust insulins and make long-acting twice daily. Discussed with the patient about glycemic control. Review of systems: Constitutional: No reports of fatigue, fever, or chills Cardiovascular: No reports of chest pain or palpitations Respiratory: reports of shortness of breath, occasional bronchial cough with no significant phlegm coming up GI: No reports of nausea, vomiting, or diarrhea : No reports of dysuria or retention Neurovascular: No reports of weakness or numbness All medications have been reviewed Physical exam: Gen: This is a 78-year-old male who is awake, alert and oriented times 3, well- developed, elderly appearing, ill-appearing, obese HEENT: Head is atraumatic, normocephalic. Pupils equal, round. Sclerae is anicteric. NECK: Supple. No JVD. No lymphadenopathy. No thyromegaly. LUNGS: Diminished breath sounds bilaterally with no wheezes or rhonchi. Faint crackles noted at the bases no intercostal retractions. HEART: Regular rate and rhythm. No murmur. ABDOMEN: Soft. Obese bowel sounds are present. No masses. No tenderness. EXTREMITIES: No pedal edema. No calf tenderness. Mild lower extremity edema bilaterally, nonpitting NEUROLOGICAL: Patient is awake, alert and oriented x3. Cranial nerves 2 through 12 are grossly intact. Assessment: Acute on chronic hypoxic respiratory failure secondary to CHF exacerbation. Patient is currently on 3 L oxygen via nasal cannula. Patient wears 3 L outpatient chronically Acute on chronic CHF with systolic function ejection fraction 45% Hyperglycemia is uncontrolled diabetes type 2 A1c 11.1 History of TAVR in 2014 Obstructive sleep apnea not using CPAP at home Moderate pulmonary hypertension COPD Chronic hypoxic respiratory failure secondary to COPD on home oxygen History of coronary artery disease status post CABG in 2008 CKD stage III with baseline creatinine 1.2 to 1.3 Hypertension Hyperlipidemia History of gout Bilateral lower extremity peripheral neuropathy Obesity with a BMI of 37.8 GI prophylaxis DVT prophylaxis with heparin subcu Full code Plan: Patient will be continued on telemonitoring. Continue with IV Lasix 40 mg every 8 hourly per cardiology and we will follow-up on repeat labs to monitor kidney functions and electrolytes Wean FiO2 as tolerated, patient chronically wears 3 L outpatient and is currently on that today. Cardiology and pulmonary following and not quite ready for discharge although is improving and will continue current regimen Continue monitoring Accu-Cheks ACHS and will adjust insulins as patient's blood sugars are extremely elevated. Will make long-acting twice daily Follow-up on repeat labs to monitor kidney functions and electrolytes. Replace electrolytes per protocol Continue heart healthy diabetic diet Due to multiple complex medical issues, prognosis is guarded Possible discharge planning in the next 24 to 48 hours once cleared by cardiology and pulmonary. The impression and plan of care has been dictated by Lizz Jackson, Nurse Practitioner as directed. Dr. Letha MD I have performed a history and examination and MDM of this patient, discussed the same with the dictator, and agree with the dictator's assessment and plan a s written ,documented as a scribe. Based on total visit time, I have performed more than 50% of the visit. Objective - Vital Signs Vital signs: Vital Signs Temp 97.5 F L 05/15/24 07:00 Pulse 67 05/15/24 07:00 Resp 18 05/15/24 07:00 BP 125/67 05/15/24 07:00 Pulse Ox 96 05/15/24 07:00 FiO2 Intake & Output 05/14/24 05/15/24 05/15/24 18:59 06:59 18:59 Intake Total 1242 278 Output Total 2900 1000 Balance -1658 -1000 278 Weight 117 kg 118.4 kg Intake: Oral 1242 278 Output: Urine 2900 1000 Other: Voiding Method Urinal Urinal Urinal - Labs CBC & Chem 7: 05/15/24 03:17 05/15/24 03:17 Labs: Abnormal Lab Results - Last 24 Hours (Table) 05/13/24 05/14/24 05/14/24 Range/Units 16:38 13:05 17:32 WBC (4.50-10.00) X 10*3/uL MCV (80.0-97.0) FL MCH (27.0-32.0) pg RDW (11.5-14.5) % Immature Gran # (0.00-0.04) X 10*3/uL Neutrophils # (1.80-7.70) X 10*3/uL Monocytes # (0.20-1.00) X 10*3/uL Eosinophils # (0.04-0.35) X 10*3/uL Anion Gap (4.00-12.00) mmol/L BUN (9.0-27.0) mg/dL Creatinine (0.6-1.5) mg/dL Est GFR (CKD-EPI) (>=60) BUN/Creatinine Ratio (12.00-20.00) Ratio Glucose (70-110) mg/dL POC Glucose (mg/dL) 531 H* 514 H* (70-110) mg/dL Hemoglobin A1c 11.1 H (<=6.0) % 05/14/24 05/14/24 05/15/24 Range/Units 20:47 21:02 03:17 WBC 12.89 H (4.50-10.00) X 10*3/uL MCV 97.3 H (80.0-97.0) FL MCH 33.2 H (27.0-32.0) pg RDW 15.1 H (11.5-14.5) % Immature Gran # 0.06 H (0.00-0.04) X 10*3/uL Neutrophils # 10.51 H (1.80-7.70) X 10*3/uL Monocytes # 1.08 H (0.20-1.00) X 10*3/uL Eosinophils # 0.01 L (0.04-0.35) X 10*3/uL Anion Gap (4.00-12.00) mmol/L BUN (9.0-27.0) mg/dL Creatinine (0.6-1.5) mg/dL Est GFR (CKD-EPI) (>=60) BUN/Creatinine Ratio (12.00-20.00) Ratio Glucose (70-110) mg/dL POC Glucose (mg/dL) 426 H 420 H (70-110) mg/dL Hemoglobin A1c (<=6.0) % 05/15/24 05/15/24 Range/Units 03:17 06:04 WBC (4.50-10.00) X 10*3/uL MCV (80.0-97.0) FL MCH (27.0-32.0) pg RDW (11.5-14.5) % Immature Gran # (0.00-0.04) X 10*3/uL Neutrophils # (1.80-7.70) X 10*3/uL Monocytes # (0.20-1.00) X 10*3/uL Eosinophils # (0.04-0.35) X 10*3/uL Anion Gap 17.50 H (4.00-12.00) mmol/L BUN 56.4 H (9.0-27.0) mg/dL Creatinine 2.0 H (0.6-1.5) mg/dL Est GFR (CKD-EPI) 33 L (>=60) BUN/Creatinine Ratio 28.20 H (12.00-20.00) Ratio Glucose 454 H (70-110) mg/dL POC Glucose (mg/dL) 342 H (70-110) mg/dL Hemoglobin A1c (<=6.0) %
[2024-05-16] MEDS: FUROSEMIDE 10 MG/ML 4 ML VIAL IV SCH (09:25)
[2024-05-16 09:46] LABS: African American GFR (CKD) 55 (>60 ml/min/1.73 sqM); Anion Gap 8 mmol/L; Blood Urea Nitrogen 56 mg/dL (9-20); Calcium 9.3 mg/dL (8.4-10.2); Carbon Dioxide 26 mmol/L (22-30); Chloride 103 mmol/L (98-107); Glucose 301 mg/dL (74-99); Magnesium 2.4 mg/dL (1.6-2.3); Non-African American GFR(CKD) 48 (>60 ml/min/1.73 sqM); Potassium 4.4 mmol/L (3.5-5.1); Sodium 137 mmol/L (137-145)
--- NOTE | 2024-05-16 10:30 | P.PN ---
Subjective Progress Note Date: 05/16/24 The patient is a pleasant 78-year-old gentleman who sees a Dr Santiago out of the town and currently he is visiting with known history of CAD and prior CABG and also status post surgical then transcutaneous aortic valve replacement as well as hypertension and dyslipidemiaDM2, peripheral neuropathy and COPD and obesity presented to the hospital complaining of increasing shortness of breath and increasing bilateral lower extremities edema. He states that he has been having increasing shortness breath or last few months however especially increased lower extremity edema over the last week. He talked to his primary care physician who advised him to take double his Lasix taking it twice a day however did not really notice any significant improvement and therefore came to emergency department. He denies any chest pain or pressure. Denies any lightheadedness. He has been feeling significantly fatigued however also he was started on Lyrica and we discussed this may be causing some of his fatigue. He has significant bilateral neuropathy of his lower extremities. He has history of CABG however has not had any repeat stenting. He states he had a stress test approximately 6 months ago and does not know the results however believes was normal. CABG and surgical aortic valve replacement were performed in 2004 and transcatheter valve replacement performed in 2014. creatinine 1.3 which is his baseline. Prior echo showed EF 50% with mild to moderate aortic stenosis and mild paravalvular leak. EKG shows sinus rhythm with prolonged AR interval, right bundle branch block, nonspecific ST depressions V1 through V3 with left axis deviation, Q waves inferiorly. 05/15 Patient seen and examined. Patient underwent an echocardiogram which shows left ventricular EF 45% with normally functioning bioprosthetic aortic valve with peak velocity 2.7 m/s, moderate tricuspid regurgitation and RVSP 45. He remains on diuretics. His creatinine did go up to 2.0 and his blood pressures have been relatively stable. He admits to some dribbling of his urine and we will check postvoid residuals. 05/16 Patient is seen and examined. Patient has been maintained on IV Lasix 40 mg daily. Patient has a negative fluid balance. Patient still has a few crackles in the left base and mild lower extremity edema. He states his breathing is not quite back to normal. He is normally on home O2 at 3 L nasal cannula he has some dyspnea on exertion. Repeat blood work reveals BUN 56 creatinine 1.4. Patient is moving from [place] to [facility] and will be following up with Dr. Rivas at the time of discharge. Reviewed echocardiogram results with the patient. He does not know what his baseline EF was in the past. PHYSICAL EXAMINATION Vital signs reviewed. CONSTITUTIONAL: No apparent distress. HEENT: Head is normocephalic. Pupils are equal, round. Sclerae anicteric. Mucous membranes of the mouth are moist. No JVD. No carotid bruit. CHEST EXAMINATION: Lungs are clear to auscultation. No chest wall tenderness is noted on palpation or with deep breathing. HEART EXAMINATION: Regular rate and rhythm. S1, S2 heard. +2/6 systolic murmur, nogallops or rub. ABDOMEN: Soft, nontender. Positive bowel sounds. EXTREMITIES: 2+ peripheral pulses, 1+ lower extremity edema and no calf tenderne ss. NEUROLOGIC EXAMINATION: Patient is awake, alert and oriented x3. Assessment Acute on chronic diastolic heart failure CAD with prior CABG Valvular heart disease status post TAVR CASSANDRA CKD COPD Chronic hypoxic respiratory failure on home O2 Former tobacco use Obstructive sleep apnea not utilizing CPAP Obesity diabetes mellitus type 2 Peripheral neuropathy Plan Continue current cardiac medications: Lipitor 40 mg daily, Farxiga 10 mg daily, Imdur 30 mg daily, Toprol-XL 100 mg daily Continue patient on IV Lasix 40 mg daily for 1 more day and plan to transition to oral Lasix tomorrow Monitor DANO, daily weights, electrolytes and renal function echo shows relatively preserved EF 45% without significant valvular disease. He does have a CASSANDRA may be related to urinary retention and check postvoid residuals. Continue with diuretics for now with significant lower extremity edema. Monitor response. Nurse practitioner note has been reviewed, I agree with documented findings and plan of care. Patient was seen and examined. Objective - Vital Signs Vital signs: Vital Signs Temp 97.6 F 05/16/24 07:00 Pulse 66 05/16/24 07:00 Resp 17 05/16/24 07:00 BP 127/77 05/16/24 07:00 Pulse Ox 96 05/16/24 07:00 FiO2 Intake & Output 05/15/24 05/16/24 05/16/24 18:59 06:59 18:59 Intake Total 986 500 298 Output Total 1400 500 Balance -414 0 298 Weight 119.5 kg Intake: Oral 986 500 298 Output: Urine 1400 500 Other: Voiding Method Urinal Urinal # Voids 2 - Labs CBC & Chem 7: 05/15/24 03:17 05/16/24 09:20 Labs: Abnormal Lab Results - Last 24 Hours (Table) 05/15/24 05/15/24 05/15/24 Range/Units 03:17 12:44 17:10 POC Glucose (mg/dL) 405 H 293 H (70-110) mg/dL Hemoglobin A1c 10.9 H (<=6.0) % 05/15/24 05/16/24 Range/Units 20:17 06:18 POC Glucose (mg/dL) 326 H 185 H (70-110) mg/dL Hemoglobin A1c (<=6.0) %
--- NOTE | 2024-05-16 10:38 | P.PN ---
Subjective Progress Note Date: 05/16/24 This is a pleasant 78-year-old male patient with a history of congestive heart failure, coronary artery disease with previous CABG x 3 in 2008, TAVR in 2014, former smoker, oxygen dependent chronic obstructive pulmonary disease, obstructive sleep apnea not using CPAP, diabetes melitis. He presented to the emergency room yesterday with a 2-week history of progressive shortness of breath and lower extremity edema. Chest x-ray reveals evidence of cardiomegaly and mild pulmonary vascular congestion. Underlying COPD. Echocardiogram reveals impaired left ventricular systolic function with ejection fraction of 45%. Severe right ventricular dilatation with moderate pulmonary hypertension, normally functioning bioprosthetic aortic valve. White count 7.2. Hemoglobin 16.7. Platelet count 158. Sodium 138. Potassium 4.2. Bicarb 26. BUN 41. Creatinine 1.33. Glucose 278. Troponin negative x 2. proBNP 824. Regular medical floor. He is currently sitting up in bed. Awake and alert in no acute distress. He is breathing a bit easier today compared to yesterday. He has been initiated on Lasix 40 mg IV every 8 hours. Urine output greater than 3 L thus far. The patient is seen today 05/15/2024 in follow-up on the regular medical floor. He is currently sitting up at the bedside. Awake and alert in no acute distress. He is maintaining O2 saturations in the 90s on 3 L/min per nasal can nula. He is afebrile. Hemodynamically stable. White count 12.8. Hemoglobin 16.1. Platelets 175. Sodium 137. Potassium 4.1. Bicarb 24. BUN 56. Creatinine 2.0. Glucose 454. He remains on Lasix 40 mg IV every 8 hours. Continued on bronchodilators. Heparin for DVT prophylaxis. The patient is seen today May 16, 2024 in follow-up on the regular medical floor. He is currently sitting up at the bedside having breakfast. Awake and alert in no acute distress. Maintaining O2 saturations in the 90s on 3 L/min per nasal cannula. He is not feeling quite back to his baseline. Still with some dyspnea on exertion. He is afebrile. Hemodynamically stable. Sodium 137. Potassium 4.4. Bicarb 26. BUN 56. Creatinine 1.40. Glucose 301. Magnesium 2.4. He is continued on DuoNeb inhalations, Symbicort, heparin for DVT prophylaxis. Continued on IV diuretics. Decreased to daily. Urine output adequate. Objective - Vital Signs Vital signs: Vital Signs Temp 97.6 F 05/16/24 07:00 Pulse 66 05/16/24 07:00 Resp 17 05/16/24 07:00 BP 127/77 05/16/24 07:00 Pulse Ox 96 05/16/24 07:00 FiO2 Intake & Output 05/15/24 05/16/24 05/16/24 18:59 06:59 18:59 Intake Total 986 500 298 Output Total 1400 500 Balance -414 0 298 Weight 119.5 kg Intake: Oral 986 500 298 Output: Urine 1400 500 Other: Voiding Method Urinal Urinal # Voids 2 - Exam GENERAL EXAM: Alert, pleasant obese 78-year-old male, on 3 L nasal cannula, comfortable in no apparent distress. HEAD: Normocephalic. EYES: Normal reaction of pupils, equal size. NOSE: Clear with pink turbinates. THROAT: No erythema or exudates. NECK: No masses, no JVD. CHEST: No chest wall deformity. LUNGS: Equal air entry with crackles in the bilateral bases. CVS: S1 and S2 normal with no audible murmur, regular rhythm. ABDOMEN: No hepatosplenomegaly, normal bowel sounds, no guarding or rigidity. SPINE: No scoliosis or deformity SKIN: No rashes CENTRAL NERVOUS SYSTEM: No focal deficits, tone is normal in all 4 extremities. EXTREMITIES: There is 1-2+ peripheral edema. No clubbing, no cyanosis. Peripheral pulses are intact. - Labs CBC & Chem 7: 05/15/24 03:17 05/16/24 09:20 Labs: Abnormal Lab Results - Last 24 Hours (Table) 05/15/24 05/15/24 05/15/24 Range/Units 03:17 12:44 17:10 BUN (9-20) mg/dL Creatinine (0.66-1.25) mg/dL Glucose (74-99) mg/dL POC Glucose (mg/dL) 405 H 293 H (70-110) mg/dL Hemoglobin A1c 10.9 H (<=6.0) % Magnesium (1.6-2.3) mg/dL 05/15/24 05/16/24 05/16/24 Range/Units 20:17 06:18 09:20 BUN 56 H (9-20) mg/dL Creatinine 1.40 H (0.66-1.25) mg/dL Glucose 301 H (74-99) mg/dL POC Glucose (mg/dL) 326 H 185 H (70-110) mg/dL Hemoglobin A1c (<=6.0) % Magnesium 2.4 H (1.6-2.3) mg/dL Assessment and Plan Assessment: Acute on chronic hypoxemic respiratory failure secondary to an acute exacerbation of systolic congestive heart failure Chronic obstructive pulmonary disease, oxygen dependent Former smoker Moderate pulmonary hypertension History of obstructive sleep apnea, not utilizing CPAP Aortic valve stenosis, status post TAVR in 2014 functioning normally on echocardiogram Coronary artery disease, status post CABG x 3 in 2008 Diabetes mellitus Hypertension Hyperlipidemia History of gout Plan: The patient was seen and evaluated Labs and medications reviewed Remains on IV diuretics The patient has home oxygen and a nebulizer He is on Trelegy and albuterol at home Continue DuoNeb inhalations, Symbicort here Increase his activity as tolerated We will continue to follow I have personally seen and examined the patient, performed the documentation and the assessment and plan as written. Number of minutes spent on the visit: 10.
[2024-05-16 11:31] LABS: Glucose,Whole Blood 338 mg/dL (70-110)
[2024-05-16] MEDS: SYMBICORT 160-4.5 MCG INHALER INHALATION SCH (12:05)
[2024-05-16 17:26] LABS: Glucose,Whole Blood 316 mg/dL (70-110)
[2024-05-16 19:53] LABS: Glucose,Whole Blood 358 mg/dL (70-110)
[2024-05-17 06:26] LABS: Glucose,Whole Blood 205 mg/dL (70-110)
[2024-05-17] MEDS: INSULIN ASPART (NovoLOG) 100 UNIT/ML VIAL SQ SCH (09:56)
[2024-05-17 10:08] LABS: BUN/Creat Ratio 32.69 Ratio (12.00-20.00); Blood Urea Nitrogen 52.3 mg/dL (9.0-27.0); Calcium 9.2 mg/dL (8.7-10.3); Carbon Dioxide 25.2 mmol/L (21.6-31.8); Chloride 102 mmol/L (96-109); Glucose 226 mg/dL (70-110); Potassium 4.6 mmol/L (3.5-5.5); Sodium 139 mmol/L (135-145)
--- NOTE | 2024-05-17 11:05 | P.PN ---
Subjective Progress Note Date: 05/17/24 The patient is a pleasant 78-year-old gentleman who sees a Dr Santiago out of the town and currently he is visiting with known history of CAD and prior CABG and also status post surgical then transcutaneous aortic valve replacement as well as hypertension and dyslipidemiaDM2, peripheral neuropathy and COPD and obesity presented to the hospital complaining of increasing shortness of breath and increasing bilateral lower extremities edema. He states that he has been having increasing shortness breath or last few months however especially increased lower extremity edema over the last week. He talked to his primary care physician who advised him to take double his Lasix taking it twice a day however did not really notice any significant improvement and therefore came to emergency department. He denies any chest pain or pressure. Denies any lightheadedness. He has been feeling significantly fatigued however also he was started on Lyrica and we discussed this may be causing some of his fatigue. He has significant bilateral neuropathy of his lower extremities. He has history of CABG however has not had any repeat stenting. He states he had a stress test approximately 6 months ago and does not know the results however believes was normal. CABG and surgical aortic valve replacement were performed in 2004 and transcatheter valve replacement performed in 2014. creatinine 1.3 which is his baseline. Prior echo showed EF 50% with mild to moderate aortic stenosis and mild paravalvular leak. EKG shows sinus rhythm with prolonged ME interval, right bundle branch block, nonspecific ST depressions V1 through V3 with left axis deviation, Q waves inferiorly. 05/15 Patient seen and examined. Patient underwent an echocardiogram which shows left ventricular EF 45% with normally functioning bioprosthetic aortic valve with peak velocity 2.7 m/s, moderate tricuspid regurgitation and RVSP 45. He remains on diuretics. His creatinine did go up to 2.0 and his blood pressures have been relatively stable. He admits to some dribbling of his urine and we will check postvoid residuals. 05/16 Patient is seen and examined. Patient has been maintained on IV Lasix 40 mg daily. Patient has a negative fluid balance. Patient still has a few crackles in the left base and mild lower extremity edema. He states his breathing is not quite back to normal. He is normally on home O2 at 3 L nasal cannula he has some dyspnea on exertion. Repeat blood work reveals BUN 56 creatinine 1.4. Patient is moving from [place] to [facility] and will be following up with Dr. Rivas at the time of discharge. Reviewed echocardiogram results with the patient. He does not know what his baseline EF was in the past. 05/17 Patient is maintained on IV Lasix 40 mg daily had showed improvement of renal function yesterday. Patient has a negative fluid balance and weight loss of 1 kg from yesterday. He has been afebrile, heart rate 58, pulse ox 114/72, pulse ox 96% on 3 L nasal cannula. Patient feels like his breathing is back to his baseline. PHYSICAL EXAMINATION Vital signs reviewed. CONSTITUTIONAL: No apparent distress. HEENT: Head is normocephalic. Pupils are equal, round. Sclerae anicteric. Mucous membranes of the mouth are moist. No JVD. No carotid bruit. CHEST EXAMINATION: Lungs are clear to auscultation. No chest wall tenderness is noted on palpation or with deep breathing. HEART EXAMINATION: Regular rate and rhythm. S1, S2 heard. +2/6 systolic murmur, nogallops or rub. ABDOMEN: Soft, nontender. Positive bowel sounds. EXTREMITIES: 2+ peripheral pulses, minimal lower extremity edema and no calf tenderness. NEUROLOGIC EXAMINATION: Patient is awake, alert and oriented x3. Assessment Acute on chronic diastolic heart failure CAD with prior CABG Valvular heart disease status post TAVR C[place]A CKD COPD Chronic hypoxic respiratory failure on home O2 Former tobacco use Obstructive sleep apnea not utilizing CPAP Obesity diabetes mellitus type 2 Peripheral neuropathy Plan Continue current cardiac medications: Lipitor 40 mg daily, Farxiga 10 mg daily, Imdur 30 mg daily, Toprol-XL 100 mg daily Transition IV Lasix to oral 40 mg twice daily Patient is cleared for discharge from cardiology and may follow-up with Dr. Rivas in 1 to 2 weeks. Nurse practitioner note has been reviewed, I agree with documented findings and plan of care. Patient was seen and examined. Objective - Vital Signs Vital signs: Vital Signs Temp 97.7 F 05/17/24 07:00 Pulse 58 L 05/17/24 07:00 Resp 16 05/17/24 07:00 BP 114/72 05/17/24 07:00 Pulse Ox 96 05/17/24 07:00 FiO2 Intake & Output 05/16/24 05/17/24 05/17/24 18:59 06:59 18:59 Intake Total 652 480 Output Total 2250 1350 Balance -1598 -870 Weight 118.6 kg Intake: Oral 652 480 Output: Urine 2250 1350 Other: Voiding Method Urinal - Labs CBC & Chem 7: 05/15/24 03:17 05/17/24 04:24 Labs: Abnormal Lab Results - Last 24 Hours (Table) 05/16/24 05/16/24 05/16/24 Range/Units 09:20 11:30 17:24 BUN 56 H (9-20) mg/dL Creatinine 1.40 H (0.66-1.25) mg/dL Glucose 301 H (74-99) mg/dL POC Glucose (mg/dL) 338 H 316 H (70-110) mg/dL Magnesium 2.4 H (1.6-2.3) mg/dL 05/16/24 05/17/24 Range/Units 19:52 06:25 BUN (9-20) mg/dL Creatinine (0.66-1.25) mg/dL Glucose (74-99) mg/dL POC Glucose (mg/dL) 358 H 205 H (70-110) mg/dL Magnesium (1.6-2.3) mg/dL
--- NOTE | 2024-05-17 11:13 | P.PN ---
Subjective Progress Note Date: 05/17/24 This is a pleasant 78-year-old male patient with a history of congestive heart failure, coronary artery disease with previous CABG x 3 in 2008, TAVR in 2014, former smoker, oxygen dependent chronic obstructive pulmonary disease, obstructive sleep apnea not using CPAP, diabetes melitis. He presented to the emergency room yesterday with a 2-week history of progressive shortness of breath and lower extremity edema. Chest x-ray reveals evidence of cardiomegaly and mild pulmonary vascular congestion. Underlying COPD. Echocardiogram reveals impaired left ventricular systolic function with ejection fraction of 45%. Severe right ventricular dilatation with moderate pulmonary hypertension, normally functioning bioprosthetic aortic valve. White count 7.2. Hemoglobin 16.7. Platelet count 158. Sodium 138. Potassium 4.2. Bicarb 26. BUN 41. Creatinine 1.33. Glucose 278. Troponin negative x 2. proBNP 824. Regular medical floor. He is currently sitting up in bed. Awake and alert in no acute distress. He is breathing a bit easier today compared to yesterday. He has been initiated on Lasix 40 mg IV every 8 hours. Urine output greater than 3 L thus far. The patient is seen today 05/15/2024 in follow-up on the regular medical floor. He is currently sitting up at the bedside. Awake and alert in no acute distress. He is maintaining O2 saturations in the 90s on 3 L/min per nasal can nula. He is afebrile. Hemodynamically stable. White count 12.8. Hemoglobin 16.1. Platelets 175. Sodium 137. Potassium 4.1. Bicarb 24. BUN 56. Creatinine 2.0. Glucose 454. He remains on Lasix 40 mg IV every 8 hours. Continued on bronchodilators. Heparin for DVT prophylaxis. The patient is seen today May 16, 2024 in follow-up on the regular medical floor. He is currently sitting up at the bedside having breakfast. Awake and alert in no acute distress. Maintaining O2 saturations in the 90s on 3 L/min per nasal cannula. He is not feeling quite back to his baseline. Still with some dyspnea on exertion. He is afebrile. Hemodynamically stable. Sodium 137. Potassium 4.4. Bicarb 26. BUN 56. Creatinine 1.40. Glucose 301. Magnesium 2.4. He is continued on DuoNeb inhalations, Symbicort, heparin for DVT prophylaxis. Continued on IV diuretics. Decreased to daily. Urine output adequate. The patient is seen today May 17, 2024 in follow-up on the regular medical floo r. He is sitting up at the bedside. Awake and alert in no acute distress. Denies any worsening shortness of breath, cough or congestion. He is maintaining good O2 saturations in the 90s on 3 L/min per nasal cannula. He is afebrile. Hemodynamically stable. Sodium 139. Potassium 4.6. Bicarb 25. BUN 52. Creatinine 1.6. Glucose 226. He remains on DuoNeb inhalations, Symbicort. Continued on oral diuretics. Heparin for DVT prophylaxis. Objective - Vital Signs Vital signs: Vital Signs Temp 97.7 F 05/17/24 07:00 Pulse 58 L 05/17/24 07:00 Resp 16 05/17/24 07:00 BP 114/72 05/17/24 07:00 Pulse Ox 96 05/17/24 07:00 FiO2 Intake & Output 05/16/24 05/17/24 05/17/24 18:59 06:59 18:59 Intake Total 652 480 118 Output Total 2250 1350 Balance -1598 -870 118 Weight 118.6 kg Intake: Oral 652 480 118 Output: Urine 2250 1350 Other: Voiding Method Urinal - Exam GENERAL EXAM: Alert, pleasant 78-year-old male, on 3 L nasal cannula, comfortable in no apparent distress. HEAD: Normocephalic. EYES: Normal reaction of pupils, equal size. NOSE: Clear with pink turbinates. THROAT: No erythema or exudates. NECK: No masses, no JVD. CHEST: No chest wall deformity. LUNGS: Equal air entry with crackles in the bilateral bases. CVS: S1 and S2 normal with no audible murmur, regular rhythm. ABDOMEN: No hepatosplenomegaly, normal bowel sounds, no guarding or rigidity. SPINE: No scoliosis or deformity SKIN: No rashes CENTRAL NERVOUS SYSTEM: No focal deficits, tone is normal in all 4 extremities. EXTREMITIES: There is 1-2+ peripheral edema. No clubbing, no cyanosis. Peripheral pulses are intact. - Labs CBC & Chem 7: 05/15/24 03:17 05/17/24 04:24 Labs: Abnormal Lab Results - Last 24 Hours (Table) 0705/16/24 05/16/24 Range/Units 11:30 17:24 19:52 BUN (9.0-27.0) mg/dL Creatinine (0.6-1.5) mg/dL Est GFR (CKD-EPI) (>=60) BUN/Creatinine Ratio (12.00-20.00) Ratio Glucose (70-110) mg/dL POC Glucose (mg/dL) 338 H 316 H 358 H (70-110) mg/dL 05/17/24 05/17/24 Range/Units 04:24 06:25 BUN 52.3 H (9.0-27.0) mg/dL Creatinine 1.6 H (0.6-1.5) mg/dL Est GFR (CKD-EPI) 44 L (>=60) BUN/Creatinine Ratio 32.69 H (12.00-20.00) Ratio Glucose 226 H (70-110) mg/dL POC Glucose (mg/dL) 205 H (70-110) mg/dL Assessment and Plan Assessment: Acute on chronic hypoxemic respiratory failure secondary to an acute exacerb ation of systolic congestive heart failure Chronic obstructive pulmonary disease, oxygen dependent Former smoker Moderate pulmonary hypertension History of obstructive sleep apnea, not utilizing CPAP Aortic valve stenosis, status post TAVR in 2014 functioning normally on echocardiogram Coronary artery disease, status post CABG x 3 in 2008 Diabetes mellitus Hypertension Hyperlipidemia History of gout Plan: The patient was seen and evaluated Labs and medications reviewed Transition to oral diuretics Cleared for discharge from the pulmonary standpoint The patient has home oxygen and a nebulizer He is on Trelegy and albuterol at home Follow-up in our office in 1 week I have personally seen and examined the patient, performed the documentation and the assessment and plan as written. Number of minutes spent on the visit: 10.
[2024-05-17 11:52] LABS: Glucose,Whole Blood 343 mg/dL (70-110)
[2024-05-17] MEDS: FUROSEMIDE 40 MG TAB PO SCH (17:01)
[2024-05-17 17:15] LABS: Glucose,Whole Blood 290 mg/dL (70-110)
[2024-05-17 20:07] LABS: Glucose,Whole Blood 399 mg/dL (70-110)
--- NOTE | 2024-05-17 23:46 | P.PN ---
Subjective Progress Note Date: 05/16/24 Patient is a 78-year-old male with a past medical history of CHF, COPD on home oxygen, diabetes type 2 and history of CABG in 2009 and TAVR in 2014, prior history of smoking presents to ER with complaints of worsening shortness of breath and leg swelling for the past 2 weeks. Denies any fever or chills. Patient does have cough without any sputum production. Chest x-ray on admission showed cardiomegaly and mild pulmonary vascular congestion and correlate with the BNP for CHF. COPD. 2D echocardiogram showed ejection fraction 45% with RVSP 45 moderate MR and normally functioning bioprosthetic aortic valve. Laboratory test showed WBC 7.2 hemoglobin 16.7 platelets 158 BUN 41 creatinine 1.33 and blood sugar 278 and A1c 11.1 and liver enzymes are not elevated. Troponin x 2 negative. Albumin 4.1 and proBNP 824. 05/15/2024 Patient is seen and evaluated in follow-up this morning continues to have s hortness of breath with cough and congestion. Patient is being followed by pulmonary as well as cardiology with CHF exacerbation, COPD as well. Patient continued on breathing treatments along with IV Lasix and cardiology recommending continuing on IV Lasix with close monitoring of kidney functions as patient does continue to have significant overload. Swelling is noted to be improved somewhat of the lower extremities. Encouraged the patient to elevate lower extremities and use compression stockings and/or Omid wraps to bilateral lower extremities. Patient also has been instructed to increase activity as tolerated. Patient is a diabetic and extremely uncontrolled with hyperglycemia will adjust insulins and make long-acting twice daily. Discussed with the patient about glycemic control. 05/16/2024 Patient is currently sitting on side of the bed. Awake alert and oriented x 3. No complaints of chest pain. Shortness of breath is much improved and leg swelling is improving as well. Currently requiring 3 L oxygen via nasal cannula. Still dyspneic with exertion. Continued on IV Lasix. Laboratory data showed sodium 137 potassium 4.4 chloride 103 bicarb is 26 BUN 56 and creatinine 1.4 and blood sugar 301 and magnesium 2.4. Current medications reviewed. Review of systems: Constitutional: No reports of fatigue, fever, or chills Cardiovascular: No reports of chest pain or palpitations Respiratory: reports of shortness of breath, occasional bronchial cough with no significant phlegm coming up GI: No reports of nausea, vomiting, or diarrhea : No reports of dysuria or retention Neurovascular: No reports of weakness or numbness All medications have been reviewed Physical exam: Gen: This is a 78-year-old male who is awake, alert and oriented times 3, well- developed, elderly appearing, ill-appearing, obese HEENT: Head is atraumatic, normocephalic. Pupils equal, round. Sclerae is anicteric. NECK: Supple. No JVD. No lymphadenopathy. No thyromegaly. LUNGS: Diminished breath sounds bilaterally with no wheezes or rhonchi. Faint crackles noted at the bases no intercostal retractions. HEART: Regular rate and rhythm. No murmur. ABDOMEN: Soft. Obese bowel sounds are present. No masses. No tenderness. EXTREMITIES: No pedal edema. No calf tenderness. Mild lower extremity edema bilaterally, nonpitting NEUROLOGICAL: Patient is awake, alert and oriented x3. Cranial nerves 2 through 12 are grossly intact. Assessment: Acute on chronic hypoxic respiratory failure secondary to CHF exacerbation. Patient is currently on 3 L oxygen via nasal cannula. Patient wears 3 L outpatient chronically Acute on chronic CHF with systolic function ejection fraction 45% Hyperglycemia is uncontrolled diabetes type 2 A1c 11.1 History of TAVR in 2014 Obstructive sleep apnea not using CPAP at home Moderate pulmonary hypertension COPD Chronic hypoxic respiratory failure secondary to COPD on home oxygen History of coronary artery disease status post CABG in 2008 CKD stage III with baseline creatinine 1.2 to 1.3 Hypertension Hyperlipidemia History of gout Bilateral lower extremity peripheral neuropathy Obesity with a BMI of 37.8 GI prophylaxis DVT prophylaxis with heparin subcu Full code Plan: Patient will be continued on telemonitoring. Continue with IV Lasix 40 mg every 8 hourly per cardiology and we will follow-up on repeat labs to monitor kidney functions and electrolytes Wean FiO2 as tolerated, patient chronically wears 3 L outpatient and is currently on that today. Cardiology and pulmonary following and not quite ready for discharge although is improving and will continue current regimen Continue monitoring Accu-Cheks ACHS and will adjust insulins as patient's blood sugars are extremely elevated. Will make long-acting twice daily Follow-up on repeat labs to monitor kidney functions and electrolytes. Replace electrolytes per protocol Continue heart healthy diabetic diet Due to multiple complex medical issues, prognosis is guarded Possible discharge planning in the next 24 to 48 hours once cleared by cardiology and pulmonary. Objective - Vital Signs Vital signs: Vital Signs Temp 97.5 F L 05/16/24 20:00 Pulse 66 05/16/24 20:00 Resp 16 05/16/24 20:00 BP 91/53 05/16/24 20:00 Pulse Ox 94 L 05/16/24 20:00 FiO2 Intake & Output 05/16/24 05/16/24 05/17/24 06:59 18:59 06:59 Intake Total 500 652 Output Total 500 2250 550 Balance 0 -1598 -550 Weight 119.5 kg Intake: Oral 500 652 Output: Urine 500 2250 550 Other: Voiding Method Urinal Urinal # Voids 2 - Labs CBC & Chem 7: 05/15/24 03:17 05/17/24 04:24 Labs: Abnormal Lab Results - Last 24 Hours (Table) 05/16/24 05/16/24 05/16/24 Range/Units 06:18 09:20 11:30 BUN 56 H (9-20) mg/dL Creatinine 1.40 H (0.66-1.25) mg/dL Glucose 301 H (74-99) mg/dL POC Glucose (mg/dL) 185 H 338 H (70-110) mg/dL Magnesium 2.4 H (1.6-2.3) mg/dL 05/16/24 05/16/24 Range/Units 17:24 19:52 BUN (9-20) mg/dL Creatinine (0.66-1.25) mg/dL Glucose (74-99) mg/dL POC Glucose (mg/dL) 316 H 358 H (70-110) mg/dL Magnesium (1.6-2.3) mg/dL
--- NOTE | 2024-05-17 23:56 | P.PN ---
Subjective Progress Note Date: 05/17/24 Patient is a 78-year-old male with a past medical history of CHF, COPD on home oxygen, diabetes type 2 and history of CABG in 2008 and TAVR in 2014, prior history of smoking presents to ER with complaints of worsening shortness of breath and leg swelling for the past 2 weeks. Denies any fever or chills. Patient does have cough without any sputum production. Chest x-ray on admission showed cardiomegaly and mild pulmonary vascular congestion and correlate with the BNP for CHF. COPD. 2D echocardiogram showed ejection fraction 45% with RVSP 45 moderate MR and normally functioning bioprosthetic aortic valve. Laboratory test showed WBC 7.2 hemoglobin 16.7 platelets 158 BUN 41 creatinine 1.33 and blood sugar 278 and A1c 11.1 and liver enzymes are not elevated. Troponin x 2 negative. Albumin 4.1 and proBNP 824. 05/15/2024 Patient is seen and evaluated in follow-up this morning continues to have s hortness of breath with cough and congestion. Patient is being followed by pulmonary as well as cardiology with CHF exacerbation, COPD as well. Patient continued on breathing treatments along with IV Lasix and cardiology recommending continuing on IV Lasix with close monitoring of kidney functions as patient does continue to have significant overload. Swelling is noted to be improved somewhat of the lower extremities. Encouraged the patient to elevate lower extremities and use compression stockings and/or Omid wraps to bilateral lower extremities. Patient also has been instructed to increase activity as tolerated. Patient is a diabetic and extremely uncontrolled with hyperglycemia will adjust insulins and make long-acting twice daily. Discussed with the patient about glycemic control. 05/16/2024 Patient is currently sitting on side of the bed. Awake alert and oriented x 3. No complaints of chest pain. Shortness of breath is much improved and leg swelling is improving as well. Currently requiring 3 L oxygen via nasal cannula. Still dyspneic with exertion. Continued on IV Lasix. Laboratory data showed sodium 137 potassium 4.4 chloride 103 bicarb is 26 BUN 56 and creatinine 1.4 and blood sugar 301 and magnesium 2.4. 05/17/2024 Patient is resting in bed. Awake alert and oriented x 3. Leg swelling is improving. Continued on wound dressing changes. Respiratory status is stable. Requiring oxygen 3 L via nasal cannula as per home regimen. No complaints of dizziness or lightheadedness. Patient's blood sugar is elevated to 300, insulin regimen is being titrated. Laboratory data showed BUN 52.3 and creatinine went up to 1.6. IV Lasix has been changed to 40 mg p.o. twice daily. Cardiology and pulmonary is on board. Review of systems: Constitutional: No reports of fatigue, fever, or chills Cardiovascular: No reports of chest pain or palpitations Respiratory: reports of shortness of breath, occasional bronchial cough with no significant phlegm coming up GI: No reports of nausea, vomiting, or diarrhea : No reports of dysuria or retention Neurovascular: No reports of weakness or numbness All medications have been reviewed Physical exam: Gen: This is a 78-year-old male who is awake, alert and oriented times 3, well- developed, elderly appearing, ill-appearing, obese HEENT: Head is atraumatic, normocephalic. Pupils equal, round. Sclerae is anicteric. NECK: Supple. No JVD. No lymphadenopathy. No thyromegaly. LUNGS: Diminished breath sounds bilaterally with no wheezes or rhonchi. Faint crackles noted at the bases no intercostal retractions. HEART: Regular rate and rhythm. No murmur. ABDOMEN: Soft. Obese bowel sounds are present. No masses. No tenderness. EXTREMITIES: No pedal edema. No calf tenderness. Mild lower extremity edema bilaterally, nonpitting NEUROLOGICAL: Patient is awake, alert and oriented x3. Cranial nerves 2 through 12 are grossly intact. Assessment: Acute on chronic hypoxic respiratory failure secondary to CHF exacerbation. Patient is currently on 3 L oxygen via nasal cannula. Patient wears 3 L outpatient chronically Acute on chronic CHF with systolic function ejection fraction 45% Hyperglycemia is uncontrolled diabetes type 2 A1c 11.1 History of TAVR in 2014 Obstructive sleep apnea not using CPAP at home Moderate pulmonary hypertension COPD Chronic hypoxic respiratory failure secondary to COPD on home oxygen History of coronary artery disease status post CABG in 2008 CKD stage III with baseline creatinine 1.2 to 1.3 Hypertension Hyperlipidemia History of gout Bilateral lower extremity peripheral neuropathy Obesity with a BMI of 37.8 GI prophylaxis DVT prophylaxis with heparin subcu Full code Plan: Patient will be continued on telemonitoring. Patient was continued on IV Lasix 40 mg every 8 hourly. Lasix changed to by mouth today. We will follow-up on repeat labs to monitor kidney functions and electrolytes Wean FiO2 as tolerated, patient chronically wears 3 L outpatient and is currently on that today. Cardiology and pulmonary following and not quite ready for discharge although is improving and will continue current regimen Continue monitoring Accu-Cheks ACHS and will adjust insulins as patient's blood sugars are extremely elevated. Will make long-acting twice daily and increasing NovoLog preprandial. Follow-up on repeat labs to monitor kidney functions and electrolytes. Replace electrolytes per protocol Continue heart healthy diabetic diet Due to multiple complex medical issues, prognosis is guarded Possible discharge planning in the next 24 to 48 hours once cleared by car diology and pulmonary. Objective - Vital Signs Vital signs: Vital Signs Temp 98.3 F 05/17/24 18:30 Pulse 69 05/17/24 18:30 Resp 16 05/17/24 18:30 BP 126/72 05/17/24 18:30 Pulse Ox 95 05/17/24 18:30 FiO2 Intake & Output 05/17/24 05/17/24 05/18/24 06:59 18:59 06:59 Intake Total 480 1078 Output Total 1350 Balance -870 1078 Weight 118.6 kg Intake: Oral 480 1078 Output: Urine 1350 Other: Voiding Method Urinal # Voids 2 - Labs CBC & Chem 7: 05/15/24 03:17 05/17/24 04:24 Labs: Abnormal Lab Results - Last 24 Hours (Table) 05/17/24 05/17/24 05/17/24 Range/Units 04:24 06:25 11:51 BUN 52.3 H (9.0-27.0) mg/dL Creatinine 1.6 H (0.6-1.5) mg/dL Est GFR (CKD-EPI) 44 L (>=60) BUN/Creatinine Ratio 32.69 H (12.00-20.00) Ratio Glucose 226 H (70-110) mg/dL POC Glucose (mg/dL) 205 H 343 H (70-110) mg/dL 05/17/24 05/17/24 Range/Units 17:14 20:06 BUN (9.0-27.0) mg/dL Creatinine (0.6-1.5) mg/dL Est GFR (CKD-EPI) (>=60) BUN/Creatinine Ratio (12.00-20.00) Ratio Glucose (70-110) mg/dL POC Glucose (mg/dL) 290 H 399 H (70-110) mg/dL
[2024-05-18 05:32] LABS: Glucose,Whole Blood 234 mg/dL (70-110)
[2024-05-18] MEDS: INSULIN ASPART (NovoLOG) 100 UNIT/ML VIAL SQ SCH (08:36)
[2024-05-18 10:53] LABS: Basophils # (A) 0.03 X 10*3/uL (0.00-0.10); Basophils % (A) 0.4 %; Eosinophils # (A) 0.15 X 10*3/uL (0.04-0.35); Eosinophils % (A) 2.2 %; HCT 45.6 % (39.6-50.0); HGB 15.4 g/dL (13.0-17.0); Lymphocytes # (A) 2.27 X 10*3/uL (0.90-5.00); Lymphocytes % (A) 32.9 %; MCH 33.1 pg (27.0-32.0); MCHC 33.8 g/dL (32.0-37.0); MCV 98.1 FL (80.0-97.0); Mean Platelet Volume 12.1 FL (9.5-12.2); Monocytes # (A) 0.73 X 10*3/uL (0.20-1.00); Monocytes % (A) 10.6 %; NRBC Per 100 WBC 0 X 10*3/uL (0.00-0.01); Neutrophils # (A) 3.67 X 10*3/uL (1.80-7.70); Neutrophils % (A) 53.3 %; Platelet Count 141 X 10*3/uL (140-440); RBC 4.65 X 10*6/uL (4.40-5.60); RDW 14.8 % (11.5-14.5); WBC 6.89 X 10*3/uL (4.50-10.00)
[2024-05-18 11:08] LABS: BUN/Creat Ratio 29.41 Ratio (12.00-20.00); Calcium 9.5 mg/dL (8.7-10.3); Carbon Dioxide 29.3 mmol/L (21.6-31.8); Chloride 100 mmol/L (96-109); Glucose 247 mg/dL (70-110); Potassium 4.9 mmol/L (3.5-5.5); Sodium 140 mmol/L (135-145)
[2024-05-18 12:03] LABS: Glucose,Whole Blood 349 mg/dL (70-110)
--- NOTE | 2024-05-18 12:51 | CDI ---
Documentation Clarification Form Date: 05/18/2024 12:48:42 PM From: Negra Jackson RN, CCDS Phone: [phone] Admit Date: 05/14/2024 02:36:00 PM Patient Name: Forrest Shaver Visit Number: [id number] Discharge Date: ATTENTION: The Clinical Documentation Specialists (CDI) and [facility] Coding Staff appreciate your assistance in clarifying documentation. Please respond to the clarification below the line at the bottom and electronically sign. The CDI & [facility] Coding staff will review the response and follow-up if needed. Please note: Queries are made part of the Legal Health Record. If you have any questions, please contact the author of this message via ITS. Dr. Carlos Monae Conflicting documentation has been found in the medical record. As attending physician, please provide clarification. Cardiology consult/progress notes: Acute on chronic diastolic heart failure Echocardiogram which shows left ventricular EF 45% with normal functioning bioprosthetic aortic valve with peak velocity 2.7m/s, moderate tricuspid regurgitation and RVSP 45. Attending H/P and ongoing progress notes: Acute on chronic CHF with systolic function ejection fraction 45% History/Risk Factors: Heart Failure, COPD, Diabetes Mellitus Type 2, Former smoker Clinical Indicators: 78-year-old male with shortness of breath, cough, chest pain. VS: 148/83 68 20 97.4 91% 3/l NC 05/13 CXR: Cardiomegaly and mild pulmonary vascular congestion Labs: BNP 824 Treatment: Public Speaking Coach/Telemetry Lipitor 40MG PO Daily Lasix 40 MG IV Q8 (Titrate) to 40 MG PO Daily BID Imdur 30 MG PO Daily Toprol Xl 100MG PO Daily Please clarify which diagnosis is most appropriate: [ x ] Acute on chronic CHF with systolic function ejection fraction 45% [ ] Acute on chronic diastolic heart failure [ ] Other (please specify) [ ] Unable to determine (Template Last Revised: January 2021) MTDD
[2024-05-18] MEDS: INSULIN DETEMIR (LEVEMIR) 100 UNIT/ML SYR SQ ONE (13:33)
--- NOTE | 2024-05-18 14:57 | P.PN ---
Subjective The patient is a pleasant 78-year-old gentleman who sees a Dr Santiago out of the town and currently he is visiting with known history of CAD and prior CABG and also status post surgical then transcutaneous aortic valve replacement as well as hypertension and dyslipidemiaDM2, peripheral neuropathy and COPD and obesity presented to the hospital complaining of increasing shortness of breath and increasing bilateral lower extremities edema. He states that he has been having increasing shortness breath or last few months however especially increased lower extremity edema over the last week. He talked to his primary care physician who advised him to take double his Lasix taking it twice a day however did not really notice any significant improvement and therefore came to emergency department. He denies any chest pain or pressure. Denies any lightheadedness. He has been feeling significantly fatigued however also he was started on Lyrica and we discussed this may be causing some of his fatigue. He has significant bilateral neuropathy of his lower extremities. He has history of CABG however has not had any repeat stenting. He states he had a stress test approximately 6 months ago and does not know the results however believes was normal. CABG and surgical aortic valve replacement were performed in 2004 and transcatheter valve replacement performed in 2014. creatinine 1.3 which is his baseline. Prior echo showed EF 50% with mild to moderate aortic stenosis and mild paravalvular leak. EKG shows sinus rhythm with prolonged [place] interval, right bundle branch block, nonspecific ST depressions V1 through V3 with left axis deviation, Q waves inferiorly. 05/15 Patient seen and examined. Patient underwent an echocardiogram which shows left ventricular EF 45% with normally functioning bioprosthetic aortic valve with peak velocity 2.7 m/s, moderate tricuspid regurgitation and RVSP 45. He remains on diuretics. His creatinine did go up to 2.0 and his blood pressures have been relatively stable. He admits to some dribbling of his urine and we will check postvoid residuals. 05/16 Patient is seen and examined. Patient has been maintained on IV Lasix 40 mg daily. Patient has a negative fluid balance. Patient still has a few crackles in the left base and mild lower extremity edema. He states his breathing is not quite back to normal. He is normally on home O2 at 3 L nasal cannula he has some dyspnea on exertion. Repeat blood work reveals BUN 56 creatinine 1.4. Patient is moving from [place] to [place] area and will be following up with Dr. Rivas at the time of discharge. Reviewed echocardiogram results with the patient. He does not know what his baseline EF was in the past. 05/17 Patient is maintained on IV Lasix 40 mg daily had showed improvement of renal function yesterday. Patient has a negative fluid balance and weight loss of 1 kg from yesterday. He has been afebrile, heart rate 58, pulse ox 114/72, pulse ox 96% on 3 L nasal cannula. Patient feels like his breathing is back to his baseline. 05/18 patient seen and examined. Patient remains on oral diuretics and states he still has mild shortness breath and 1+ lower extremity edema. Heels his left greater than right lower extremity edema. He does have some compression stockings on. Creatinine 1.7. Denies any chest pain or pressure. PHYSICAL EXAMINATION Vital signs reviewed. CONSTITUTIONAL: No apparent distress. HEENT: Head is normocephalic. Pupils are equal, round. Sclerae anicteric. Mucous membranes of the mouth are moist. No JVD. No carotid bruit. CHEST EXAMINATION: Lungs are clear to auscultation. No chest wall tenderness is noted on palpation or with deep breathing. HEART EXAMINATION: Regular rate and rhythm. S1, S2 heard. +2/6 systolic murmur, nogallops or rub. ABDOMEN: Soft, nontender. Positive bowel sounds. EXTREMITIES: 2+ peripheral pulses, minimal lower extremity edema and no calf tenderness. NEUROLOGIC EXAMINATION: Patient is awake, alert and oriented x3. Assessment Acute on chronic diastolic heart failure CAD with prior CABG Valvular heart disease status post TAVR CASSANDRA CKD COPD Chronic hypoxic respiratory failure on home O2 Former tobacco use Obstructive sleep apnea not utilizing CPAP Obesity diabetes mellitus type 2 Peripheral neuropathy Plan Continue current cardiac medications: Lipitor 40 mg daily, Farxiga 10 mg daily, Imdur 30 mg daily, Toprol-XL 100 mg daily continue Lasix oral 40 mg twice daily Patient is cleared for discharge from cardiology and may follow-up with Dr. Cuate sow in 1 to 2 weeks. Objective - Vital Signs Vital signs: Vital Signs Temp 97.9 F 05/18/24 14:15 Pulse 66 05/18/24 14:15 Resp 18 05/18/24 14:15 BP 121/73 05/18/24 14:15 Pulse Ox 94 L 05/18/24 14:15 FiO2 Intake & Output 05/17/24 05/18/24 05/18/24 18:59 06:59 18:59 Intake Total 1078 0 830 Output Total 450 600 Balance 1078 -450 230 Weight 117.9 kg Intake: Oral 1078 0 830 Output: Urine 450 600 Other: Voiding Method Urinal Urinal # Voids 2 3 - Labs CBC & Chem 7: 05/18/24 06:17 05/18/24 06:17 Labs: Abnormal Lab Results - Last 24 Hours (Table) 05/17/24 05/17/24 05/18/24 Range/Units 17:14 20:06 05:31 MCV (80.0-97.0) FL MCH (27.0-32.0) pg RDW (11.5-14.5) % BUN (9.0-27.0) mg/dL Creatinine (0.6-1.5) mg/dL Est GFR (CKD-EPI) (>=60) BUN/Creatinine Ratio (12.00-20.00) Ratio Glucose (70-110) mg/dL POC Glucose (mg/dL) 290 H 399 H 234 H (70-110) mg/dL 05/18/24 05/18/24 05/18/24 Range/Units 06:17 06:17 12:01 MCV 98.1 H (80.0-97.0) FL MCH 33.1 H (27.0-32.0) pg RDW 14.8 H (11.5-14.5) % BUN 50.0 H (9.0-27.0) mg/dL Creatinine 1.7 H (0.6-1.5) mg/dL Est GFR (CKD-EPI) 40 L (>=60) BUN/Creatinine Ratio 29.41 H (12.00-20.00) Ratio Glucose 247 H (70-110) mg/dL POC Glucose (mg/dL) 349 H (70-110) mg/dL
[2024-05-18 17:19] LABS: Glucose,Whole Blood 339 mg/dL (70-110)
[2024-05-18 20:03] LABS: Glucose,Whole Blood 333 mg/dL (70-110)
[2024-05-19 06:12] LABS: Glucose,Whole Blood 234 mg/dL (70-110)
[2024-05-19 11:05] LABS: BUN/Creat Ratio 30.38 Ratio (12.00-20.00); Basophils # (A) 0.04 X 10*3/uL (0.00-0.10); Basophils % (A) 0.6 %; Blood Urea Nitrogen 48.6 mg/dL (9.0-27.0); Calcium 9.2 mg/dL (8.7-10.3); Carbon Dioxide 28.9 mmol/L (21.6-31.8); Chloride 98 mmol/L (96-109); Eosinophils # (A) 0.15 X 10*3/uL (0.04-0.35); Eosinophils % (A) 2.1 %; Glucose 261 mg/dL (70-110); HCT 48.7 % (39.6-50.0); HGB 16.2 g/dL (13.0-17.0); Lymphocytes # (A) 1.85 X 10*3/uL (0.90-5.00); Lymphocytes % (A) 26.4 %; MCH 32.1 pg (27.0-32.0); MCHC 33.3 g/dL (32.0-37.0); MCV 96.4 FL (80.0-97.0); Mean Platelet Volume 11.6 FL (9.5-12.2); Monocytes # (A) 0.64 X 10*3/uL (0.20-1.00); Monocytes % (A) 9.1 %; NRBC Per 100 WBC 0 X 10*3/uL (0.00-0.01); Neutrophils # (A) 4.29 X 10*3/uL (1.80-7.70); Neutrophils % (A) 61.1 %; Platelet Count 154 X 10*3/uL (140-440); Potassium 4.8 mmol/L (3.5-5.5); RBC 5.05 X 10*6/uL (4.40-5.60); RDW 14.6 % (11.5-14.5); Sodium 137 mmol/L (135-145); WBC 7.02 X 10*3/uL (4.50-10.00)
[2024-05-19 12:12] LABS: Glucose,Whole Blood 367 mg/dL (70-110)
--- NOTE | 2024-05-19 12:24 | P.PN ---
Subjective The patient is a pleasant 78-year-old gentleman who sees a Dr Santiago out of the town and currently he is visiting with known history of CAD and prior CABG and also status post surgical then transcutaneous aortic valve replacement as well as hypertension and dyslipidemiaDM2, peripheral neuropathy and COPD and obesity presented to the hospital complaining of increasing shortness of breath and increasing bilateral lower extremities edema. He states that he has been having increasing shortness breath or last few months however especially increased lower extremity edema over the last week. He talked to his primary care physician who advised him to take double his Lasix taking it twice a day however did not really notice any significant improvement and therefore came to emergency department. He denies any chest pain or pressure. Denies any lightheadedness. He has been feeling significantly fatigued however also he was started on Lyrica and we discussed this may be causing some of his fatigue. He has significant bilateral neuropathy of his lower extremities. He has history of CABG however has not had any repeat stenting. He states he had a stress test approximately 6 months ago and does not know the results however believes was normal. CABG and surgical aortic valve replacement were performed in 2004 and transcatheter valve replacement performed in 2014. creatinine 1.3 which is his baseline. Prior echo showed EF 50% with mild to moderate aortic stenosis and mild paravalvular leak. EKG shows sinus rhythm with prolonged [place] interval, right bundle branch block, nonspecific ST depressions V1 through V3 with left axis deviation, Q waves inferiorly. 05/15 Patient seen and examined. Patient underwent an echocardiogram which shows left ventricular EF 45% with normally functioning bioprosthetic aortic valve with peak velocity 2.7 m/s, moderate tricuspid regurgitation and RVSP 45. He remains on diuretics. His creatinine did go up to 2.0 and his blood pressures have been relatively stable. He admits to some dribbling of his urine and we will check postvoid residuals. 05/16 Patient is seen and examined. Patient has been maintained on IV Lasix 40 mg daily. Patient has a negative fluid balance. Patient still has a few crackles in the left base and mild lower extremity edema. He states his breathing is not quite back to normal. He is normally on home O2 at 3 L nasal cannula he has some dyspnea on exertion. Repeat blood work reveals BUN 56 creatinine 1.4. Patient is moving from [place] to [place] area and will be following up with Dr. Rivas at the time of discharge. Reviewed echocardiogram results with the patient. He does not know what his baseline EF was in the past. 05/17 Patient is maintained on IV Lasix 40 mg daily had showed improvement of renal function yesterday. Patient has a negative fluid balance and weight loss of 1 kg from yesterday. He has been afebrile, heart rate 58, pulse ox 114/72, pulse ox 96% on 3 L nasal cannula. Patient feels like his breathing is back to his baseline. 05/18 patient seen and examined. Patient remains on oral diuretics and states he still has mild shortness breath and 1+ lower extremity edema. Heels his left greater than right lower extremity edema. He does have some compression stockings on. Creatinine 1.7. Denies any chest pain or pressure. 05/19 patient seen and examined. Patient remains on oral diuretics. Creatinine 1.6. His lower extremity edema has significantly improved and keep his legs elevated. Shortness breath slowly improving. Denies any chest pain or pressure. PHYSICAL EXAMINATION Vital signs reviewed. CONSTITUTIONAL: No apparent distress. HEENT: Head is normocephalic. Pupils are equal, round. Sclerae anicteric. Mucous membranes of the mouth are moist. No JVD. No carotid bruit. CHEST EXAMINATION: Lungs are clear to auscultation. No chest wall tenderness is noted on palpation or with deep breathing. HEART EXAMINATION: Regular rate and rhythm. S1, S2 heard. +2/6 systolic murmur, nogallops or rub. ABDOMEN: Soft, nontender. Positive bowel sounds. EXTREMITIES: 2+ peripheral pulses, minimal lower extremity edema and no calf tenderness. NEUROLOGIC EXAMINATION: Patient is awake, alert and oriented x3. Assessment Acute on chronic diastolic heart failure CAD with prior CABG Valvular heart disease status post TAVR CASSANDRA CKD COPD Chronic hypoxic respiratory failure on home O2 Former tobacco use Obstructive sleep apnea not utilizing CPAP Obesity diabetes mellitus type 2 Peripheral neuropathy Plan Continue current cardiac medications: Lipitor 40 mg daily, Farxiga 10 mg daily, Imdur 30 mg daily, Toprol-XL 100 mg daily continue Lasix oral 40 mg twice daily Patient is cleared for discharge from cardiology and may follow-up with Dr. Rivas in 1 to 2 weeks. Objective - Vital Signs Vital signs: Vital Signs Temp 97.6 F 05/19/24 07:00 Pulse 64 05/19/24 07:00 Resp 16 05/19/24 07:00 BP 112/71 05/19/24 07:00 Pulse Ox 95 05/19/24 08:10 FiO2 Intake & Output 05/18/24 05/19/24 05/19/24 18:59 06:59 18:59 Intake Total 1302 Output Total 1950 1250 1850 Balance -648 -1250 -1850 Weight 122 kg Intake: Oral 1302 Output: Urine 1950 1250 1850 Other: Voiding Method Urinal Urinal # Voids 3 3 # Bowel Movements 1 - Labs CBC & Chem 7: 05/19/24 07:13 05/19/24 07:13 Labs: Abnormal Lab Results - Last 24 Hours (Table) 05/18/24 05/18/24 05/19/24 Range/Units 17:17 19:54 06:11 MCH (27.0-32.0) pg RDW (11.5-14.5) % Immature Gran # (0.00-0.04) X 10*3/uL BUN (9.0-27.0) mg/dL Creatinine (0.6-1.5) mg/dL Est GFR (CKD-EPI) (>=60) BUN/Creatinine Ratio (12.00-20.00) Ratio Glucose (70-110) mg/dL POC Glucose (mg/dL) 339 H 333 H 234 H (70-110) mg/dL 05/19/24 05/19/24 05/19/24 Range/Units 07:13 07:13 12:10 MCH 32.1 H (27.0-32.0) pg RDW 14.6 H (11.5-14.5) % Immature Gran # 0.05 H (0.00-0.04) X 10*3/uL BUN 48.6 H (9.0-27.0) mg/dL Creatinine 1.6 H (0.6-1.5) mg/dL Est GFR (CKD-EPI) 44 L (>=60) BUN/Creatinine Ratio 30.38 H (12.00-20.00) Ratio Glucose 261 H (70-110) mg/dL POC Glucose (mg/dL) 367 H (70-110) mg/dL
[2024-05-19 14:42] VITALS: BP 126/85; PULSE 68; RESP 18; TEMP 98.5
--- NOTE | 2024-05-24 18:20 | P.DS ---
Providers Date of admission: 05/14/24 14:36 Expected date of discharge: 05/19/24 Attending physician: Kieran Escalante Consults: 05/13/24 18:33 Consult Physician Routine Consulting Provider: Toi Watson Consult Reason/Comments: chf Do you want consulting provider notified?: Yes 05/13/24 18:40 Consult Physician Routine Consulting Provider: Sil Rivera Consult Reason/Comments: copd Do you want consulting provider notified?: Yes Primary care physician: Physician Nonstaff Hospital Course: Final diagnosis Acute on chronic hypoxic respiratory failure secondary to CHF exacerbation. Patient is currently on 3 L oxygen via nasal cannula. Patient wears 3 L outpatient chronically Acute on chronic CHF with systolic function ejection fraction 45% Hyperglycemia is uncontrolled diabetes type 2 A1c 11.1 History of TAVR in 2014 Obstructive sleep apnea not using CPAP at home Moderate pulmonary hypertension COPD Chronic hypoxic respiratory failure secondary to COPD on home oxygen History of coronary artery disease status post CABG in 2008 CKD stage III with baseline creatinine 1.2 to 1.3 Hypertension Hyperlipidemia History of gout Bilateral lower extremity peripheral neuropathy Obesity with a BMI of 37.8 GI prophylaxis DVT prophylaxis with heparin subcu Full code Discharge disposition Patient is being discharged in a stable condition with guarded prognosis to home. Patient will follow-up with primary care provider in the outpatient setting upon discharge. Patient is to follow-up with cardiology and pulmonary outpatient as scheduled. Total time taken is greater than 35 minutes. Hospital course This is a 78-year-old male who was recently admitted with increased shortness of breath acute on chronic hypoxic respiratory failure secondary to CHF exacerbation. Patient continued on IV diuresis doing well and will transition to oral Lasix and close outpatient follow-up to monitor kidney functions and electrolytes. [place] was [place] here from the [facility]. Resources provided on discharge for primary care providers in the area. Patient has been instructed to follow-up with pulmonary as well as cardiology outpatient. Continue with current medications per consultations. Patient has been cleared by consultations for discharge home today. Instructed the patient to continue elevating lower extremities while at rest and continuing with fluid restrictions as well as diet control.. Please refer to other consultation notes for further HPI. Currently no reports of chest pain, shortness of breath, or palpitations. Patient is afebrile. No reports of nausea or vomiting and patient is tolerating diet. Patient will be discharged today. Guarded prognosis High risk for readmissions given significant comorbidities. Physical exam: Gen: This is a 78-year-old male who is awake, alert and oriented x 3, well- developed, well-nourished, obese HEENT: Head is atraumatic, normocephalic. Pupils equal, round. Sclerae is anicteric. NECK: Supple. No JVD. No lymphadenopathy. No thyromegaly. LUNGS: Diminished breath sounds bilaterally with coarse rhonchi. No intercostal retractions. HEART: S1, S2 normal ABDOMEN: Soft. Obese bowel sounds are present. No masses. No tenderness. EXTREMITIES: No pedal edema. No calf tenderness. Bilateral lower extremity edema showing improvement NEUROLOGICAL: Patient is awake, alert and oriented x3. Cranial nerves 2 through 12 are grossly intact. Please refer to medication reconciliation sheet for a list of medications. The impression and plan of care has been dictated by Lizz Jackson, Nurse Practitioner as directed. Dr. Letha MD I have performed a history and examination and MDM of this patient, discussed the same with the dictator, and agree with the dictator's assessment and plan as written ,documented as a scribe. Based on total visit time, I have performed more than 50% of the visit. Patient Condition at Discharge: Fair Plan - Discharge Summary Discharge Rx Participant: No New Discharge Prescriptions: New Ipratropium-Albuterol Nebulize [Duoneb 0.5 mg-3 mg/3 ml Soln] 3 ml INHALATION RT-Q4H PRN #100 each PRN Reason: Shortness Of Breath Or Wheezing Furosemide [Lasix] 40 mg PO BID@0900,1600 #60 tab Acetaminophen Tab [Tylenol] 650 mg PO Q6HR PRN tab PRN Reason: Fever And/ Or Pain Dapagliflozin Propanediol [Farxiga] 10 mg PO DAILY #30 tab Pregabalin [Lyrica] 225 mg PO HS #30 cap Budesonide-Formot 160-4.5 Mcg [Symbicort 160-4.5 Mcg Inhaler] 2 puff INHALATION RT-BID 30 Days #30 each Continue Atorvastatin [Lipitor] 40 mg PO DAILY Glimepiride [Amaryl] 4 mg PO BID-W/MEALS Isosorbide Mononitrate [Isosorbide Mononitrate ER] 30 mg PO DAILY metFORMIN HCL [Glucophage] 1,000 mg PO BID Fluticasone Nasal Occidental [Flonase Nasal Occidental] 1 spray EA NOSTRIL DAILY Pregabalin [Lyrica] 75 mg PO BID Tamsulosin [Flomax] 0.4 mg PO DAILY allopurinoL 100 mg PO DAILY Metoprolol Succinate (ER) [Toprol XL] 100 mg PO DAILY Changed Insulin Degludec [Tresiba Flextouch U-100 Pen] 60 units SQ DAILY #0 Discontinued Furosemide [Lasix] 40 mg PO BID #60 tab Discharge Medication List Atorvastatin [Lipitor] 40 mg PO DAILY 04/20/23 [History] Glimepiride [Amaryl] 4 mg PO BID-W/MEALS 04/20/23 [History] Isosorbide Mononitrate [Isosorbide Mononitrate ER] 30 mg PO DAILY 04/20/23 [History] Metoprolol Succinate (ER) [Toprol XL] 100 mg PO DAILY 04/20/23 [History] Pregabalin [Lyrica] 75 mg PO BID 04/20/23 [History] Tamsulosin [Flomax] 0.4 mg PO DAILY 04/20/23 [History] allopurinoL 100 mg PO DAILY 04/20/23 [History] metFORMIN HCL [Glucophage] 1,000 mg PO BID 04/20/23 [History] Fluticasone Nasal Occidental [Flonase Nasal Occidental] 1 spray EA NOSTRIL DAILY 05/13/24 [History] Acetaminophen Tab [Tylenol] 650 mg PO Q6HR PRN tab 05/19/24 [Rx] Budesonide-Formot 160-4.5 Mcg [Symbicort 160-4.5 Mcg Inhaler] 2 puff INHALATION RT-BID 30 Days #30 each 05/19/24 [Rx] Dapagliflozin Propanediol [Farxiga] 10 mg PO DAILY #30 tab 05/19/24 [Rx] Furosemide [Lasix] 40 mg PO BID@0900,1600 #60 tab 05/19/24 [Rx] Insulin Degludec [Tresiba Flextouch U-100 Pen] 60 units SQ DAILY #0 05/19/24 [Rx] Ipratropium-Albuterol Nebulize [Duoneb 0.5 mg-3 mg/3 ml Soln] 3 ml INHALATION RT-Q4H PRN #100 each 05/19/24 [Rx] Pregabalin [Lyrica] 225 mg PO HS #30 cap 05/19/24 [Rx] Follow up Appointment(s)/Referral(s): Sil Rivera MD [STAFF PHYSICIAN] - 06/17/24 9:15 am Nick Rivas DO [STAFF PHYSICIAN] - 06/03/24 3:45 pm (dr conte) Maguetaelvia,Physician [Primary Care Provider] - 1-2 days Patient Instructions/Handouts: Heart Failure (DC) Activity/Diet/Wound Care/Special Instructions: Activity limited until follow-up Follow-up with primary care provider on discharge Follow-up with pulmonary outpatient in 1 to 2 weeks Follow-up with cardiology outpatient in 1 to 2 weeks Continue taking medications as prescribed Continue monitoring blood sugars ACHS and keep a diary of all readings for primary care follow-up Continue with heart healthy diabetic diet with better diabetes control Continue to elevate lower extremities while at rest and use Omid wraps from the toes up to the knees or compression stockings Go on [employer] in order compression sleeve with Velcro for easier compression stocking for lower extremity swelling Discharge Disposition: HOME SELF-CARE
== END 2024-05-19 16:37 | disposition home or self-care (01) | DRG 291 ==
LOC: EC 15:45 → 6NMEDSUR 18:46 → OBSVTOIN 05-14 14:36
PROVIDERS: ADMIT Hospitalist; ATTEND Hospitalist
DX: I13.0 Hypertensive heart and chronic kidney disease with heart failure and stage 1 through stage 4 chronic kidney disease, or unspecified chronic kidney disease (principal); I50.23 Acute on chronic systolic (congestive) heart failure; J96.21 Acute and chronic respiratory failure with hypoxia; N17.9 Acute kidney failure, unspecified; J44.1 Chronic obstructive pulmonary disease with (acute) exacerbation; I27.29 Other secondary pulmonary hypertension; E11.22 Type 2 diabetes mellitus with diabetic chronic kidney disease; E11.42 Type 2 diabetes mellitus with diabetic polyneuropathy; E11.65 Type 2 diabetes mellitus with hyperglycemia; N18.30 Chronic kidney disease, stage 3 unspecified; I50.811 Acute right heart failure; Z79.4 Long term (current) use of insulin; Z95.1 Presence of aortocoronary bypass graft; Z99.81 Dependence on supplemental oxygen; Z95.3 Presence of xenogenic heart valve; I07.1 Rheumatic tricuspid insufficiency; E66.9 Obesity, unspecified; Z68.37 Body mass index [BMI] 37.0-37.9, adult; I45.10 Unspecified right bundle-branch block; I25.10 Atherosclerotic heart disease of native coronary artery without angina pectoris; G47.33 Obstructive sleep apnea (adult) (pediatric); E78.5 Hyperlipidemia, unspecified; M10.9 Gout, unspecified; Z91.198 Patient's noncompliance with other medical treatment and regimen for other reason; Z79.82 Long term (current) use of aspirin; Z87.891 Personal history of nicotine dependence; Z79.51 Long term (current) use of inhaled steroids; Z79.84 Long term (current) use of oral hypoglycemic drugs; Z79.899 Other long term (current) drug therapy; Z88.8 Allergy status to other drugs, medicaments and biological substances
CPT/HCPCS: 36415; 71046; 80048; 80053; 83036; 83735; 83880; 84484; 85025; 93005; 93306; 94640; 94760; 96374; 96375; 99285

== ENCOUNTER 2024-07-23 05:47 | Day surgery (SDC) | payer MEDICARE, BC ==
[2024-07-20 09:57] VITALS: BMI 36.6
[2024-07-23] MEDS ORDERED: ALPRAZolam 0.5 MG TAB PO PRN (06:00)
[2024-07-23] MEDS ORDERED: NITROGLYCERIN SL TABS 0.4 MG TAB SUBLINGUAL PRN (06:00)
[2024-07-23] MEDS ORDERED: SODIUM CHLORIDE 0.9% 1,000 ML in EMPTY BAG 1 BAG IV SCH (06:00)
[2024-07-23] MEDS ORDERED: ASPIRIN 325 MG TAB PO STA (06:00)
[2024-07-23] MEDS ORDERED: ALPRAZolam 0.25 MG TAB PO PRN (06:00)
[2024-07-23 06:33] LABS: Glucose,Whole Blood 185 mg/dL (70-110)
[2024-07-23 06:45] LABS: Basophils % (A) 1 %; Eosinophils # (A) 0.1 k/uL (0-0.7); Eosinophils % (A) 1 %; HGB 14.1 gm/dL (13.0-17.5); Lymphocytes % (A) 33 %; MCH 32.6 pg (25.0-35.0); MCHC 32.8 g/dL (31.0-37.0); MCV 99.2 fL (80.0-100.0); Macrocytosis Slight; Mean Platelet Volume 9.6; Monocytes # (A) 0.4 k/uL (0-1.0); Monocytes % (A) 7 %; Neutrophils # (A) 3.4 k/uL (1.3-7.7); Neutrophils % (A) 56 %; Platelet Count 172 k/uL (150-450); RBC 4.34 m/uL (4.30-5.90); RDW 14.6 % (11.5-15.5)
[2024-07-23 07:03] VITALS: TEMP 97.1
[2024-07-23 07:26] LABS: African American GFR (CKD) 46 (>60 ml/min/1.73 sqM); Anion Gap 8 mmol/L; Blood Urea Nitrogen 42 mg/dL (9-20); Calcium 8.8 mg/dL (8.4-10.2); Carbon Dioxide 31 mmol/L (22-30); Chloride 100 mmol/L (98-107); Glucose 180 mg/dL (74-99); Non-African American GFR(CKD) 40 (>60 ml/min/1.73 sqM); Sodium 139 mmol/L (137-145)
[2024-07-23] MEDS: HEPARIN SODIUM,PORCINE 10,000 UNIT in SODIUM CHLORIDE 0.9% 1,000 ML IRRIGATION PRN (07:40)
[2024-07-23] MEDS: SODIUM CHLORIDE 0.9% 1,000 ML IV ONE (07:40)
[2024-07-23] MEDS: HEPARIN SODIUM,PORCINE (1 ML) 2,500 UNIT in SODIUM CHLORIDE 0.9% 250 ML IRRIGATION PRN (07:41)
[2024-07-23] MEDS: MIDAZOLAM 2 MG/2 ML VIAL IVP ONE (08:00)
[2024-07-23] MEDS: LIDOCAINE 1% INJ 10MG/ML (20 ML MDV) SQ ONE (09:02)
[2024-07-23] MEDS: IOPAMIDOL-370 100ML BTL INJ ONE ×2 (09:16→09:32)
[2024-07-23] MEDS ORDERED: RX INFO: IV CONTRAST WAS GIVEN 1 EACH MISC MISCELLANE PRN (09:30)
[2024-07-23] MEDS ORDERED: SODIUM CHLORIDE 0.9% 1,000 ML IV SCH (09:30)
[2024-07-23 15:18] VITALS: PULSE 60; RESP 16
[2024-07-23 15:23] VITALS: BP 112/56
== END 2024-07-23 15:55 | disposition home or self-care (01) ==
LOC: CATHCVL 05:47
PROVIDERS: ATTEND Internal Medicine Interventional Cardiology
DX: I25.10 Atherosclerotic heart disease of native coronary artery without angina pectoris
CPT/HCPCS: 80048; 85025; 93459

== ENCOUNTER 2024-10-13 04:05 | Inpatient (IN) | payer MEDICARE, BC ==
--- NOTE | 2024-10-13 04:25 | ED ---
General Adult HPI - General Chief complaint: Shortness of Breath Stated complaint: MARGARET Time Seen by Provider: 10/13/24 04:09 Source: patient Mode of arrival: ambulatory Limitations: no limitations - History of Present Illness Initial comments: Dictation was produced using [employer] dictation software. please excuse any grammatical, word or spelling errors. Chief Complaint: 79-year-old male with multiple comorbidities presents to the emergency department for shortness of breath History of Present Illness: Patient is a 79-year-old male he wears home O2. Patient has history of heart failure COPD diabetes. He also has history of CABG. Presents emergency department with acute on chronic shortness of breath. Wears 3 L nasal cannula home oxygen 27/05. Patient denies any history of blood clots. Denies any use of anticoagulation medications. Patient denies any fever, chills or night sweats. Denies any swelling into his legs. Denies any calf tenderness. The ROS documented in this emergency department record has been reviewed and confirmed by me. Those systems with pertinent positive or negative responses have been documented in the HPI. All other systems are other negative and/or noncontributory. - Related Data Home Medications Medication Instructions Recorded Confirmed Atorvastatin [Lipitor] 40 mg PO HS 04/20/23 07/20/24 Glimepiride [Amaryl] 4 mg PO BID 04/20/23 07/20/24 Isosorbide Mononitrate [Isosorbide 30 mg PO QAM 04/20/23 07/20/24 Mononitrate ER] Metoprolol Succinate (ER) [Toprol 100 mg PO QAM 04/20/23 07/20/24 XL] Pregabalin [Lyrica] 75 mg PO QAM 04/20/23 07/20/24 Tamsulosin [Flomax] 0.4 mg PO HS 04/20/23 07/20/24 allopurinoL 100 mg PO HS 04/20/23 07/20/24 Aspirin [Adult Low Dose Aspirin EC] 81 mg PO HS 07/20/24 07/23/24 Cholecalciferol [Vitamin D3 (25 50 mcg PO BID 07/20/24 07/20/24 Mcg = 1000 Iu)] Furosemide [Lasix] 40 mg PO BID 07/20/24 07/20/24 Insulin Degludec [Tresiba 50 units SQ QAM 07/20/24 07/20/24 Flextouch U-100 Pen] Psyllium Husk [Fiber Capsule] 0.4 gm PO QAM 07/20/24 07/20/24 Previous Rx's Medication Instructions Recorded Dapagliflozin Propanediol [Farxiga] 10 mg PO DAILY #30 tab 05/19/24 Ipratropium-Albuterol Nebulize 3 ml INHALATION RT-Q4H PRN #100 05/19/24 [Duoneb 0.5 mg-3 mg/3 ml Soln] each Pregabalin [Lyrica] 225 mg PO HS #30 cap 05/19/24 Allergies Allergy/AdvReac Type Severity Reaction Status Date / Time gabapentin Allergy Dyspnea Verified 10/13/24 04:10 Review of Systems ROS Statement: Those systems with pertinent positive or pertinent negative responses have been documented in the HPI. ROS Other: All systems not noted in ROS Statement are negative. Past Medical History Past Medical History: Heart Failure, COPD, Diabetes Mellitus, Hearing Disorder / Deafness, Osteoarthritis (OA) Additional Past Medical History / Comment(s): See Dr Gambino's H&P. Type 2 diabetic. Hard of hearing in left ear. Poor circulation in legs. History of Any Multi-Drug Resistant Organisms: None Reported Past Surgical History: Cardiac Valve Replacement, Orthopedic Surgery Additional Past Surgical History / Comment(s): Open heart surgery 3 VESSEL 2008, TAVR 2014, left wrist surgery. Past Anesthesia/Blood Transfusion Reactions: No Reported Reaction Past Psychological History: No Psychological Hx Reported Smoking Status: Former smoker - Past Family History Father Family Medical History: Cancer, Diabetes Mellitus Mother Family Medical History: Cancer, Deep Vein Thrombosis (DVT) General Exam - General Exam Comments Initial Comments: PHYSICAL EXAM: General Impression: Alert and oriented x3, mildly dyspneic HEENT: Normocephalic atraumatic, extra-ocular movements intact, pupils equal and reactive to light bilaterally, mucous membranes moist. Cardiovascular: Heart regular rate and rhythm Chest: Poor air change bilaterally with auscultation of the lungs, no retractions, no tachypnea, mild crackles to the posterior lung bases Abdomen: abdomen soft, non-tender, non-distended, no organomegaly Musculoskeletal: Pulses present and equal in all extremities, no peripheral edema Motor: no focal deficits noted Neurological: CN II-XII grossly intact, no focal motor or sensory deficits noted Skin: Intact with no visualized rashes Psych: Normal affect and mood Limitations: no limitations Course Vital Signs 10/13/24 10/13/24 10/13/24 04:09 04:22 05:34 Temperature 98 F Pulse Rate 85 67 Respiratory 24 20 18 Rate Blood Pressure 126/79 115/71 O2 Sat by Pulse 90 L 96 Oximetry EKG Findings - EKG Comments: EKG Findings:: My EKG interpretation: Ventricular rate 80, sinus rhythm,. #276, QRS 160, QTc 455, right bundle branch block. No OH prolongation, no QTC prolongation, no ST or T-wave changes noted. Overall, this EKG is nonspecific Medical Decision Making - Medical Decision Making Was pt. sent in by a medical professional or institution (, PA, SENIOR QUALITY ASSURANCE SPECIALIST, urgent care, hospital, or skilled nursing...) When possible be specific @ -No Did you speak to anyone other than the patient for history (EMS, parent, family, police, friend...)? What history was obtained from this source @ -No Did you review nursing and triage notes (agree or disagree)? Why? @ -I reviewed and agree with nursing and triage notes Were old charts reviewed (outside hosp., previous admission, EMS record, old EKG, old radiological studies, urgent care reports/EKG's, skilled nursing records)? Report findings @ -Echocardiogram from May 14, 2024 reviewed showing EF of 45% Differential Diagnosis (chest pain, altered mental status, abdominal pain women, abdominal pain men, vaginal bleeding, musculoskeletal, weakness, fever, dyspnea, syncope, headache, dizziness, GI bleed, back pain, seizure, CVA, palpatations, mental health)? @ -Differential Dyspnea: Coronary syndrome, arrhythmia, tamponade, asthma, COPD, pulmonary embolism, pneumonia, pneumothorax, pulmonary effusion, anaphylaxis, diabetic ketoacidosis, flailed chest, pulmonary contusion, diaphragmatic rupture, anemia, neuromuscular, this is not meant to be an all-inclusive list. EKG interpreted by me (3pts min.). @ -See above X-rays interpreted by me (1pt min.). @ -Chest x-ray shows atelectasis CT interpreted by me (1pt min.). @ -None done U/S interpreted by me (1pt. min.). @ -None done What testing was considered but not performed or refused? (CT, X-rays, U/S, labs)? Why? @ -None What meds were considered but not given or refused? Why? @ -None Was smoking cessation discussed for >3mins.? @ -No Were there social determinants of health that impacted care today? How? (Homelessness, low income, unemployed, alcoholism, drug addiction, transportation, low edu. Level, literacy, decrease access to med. care, halfway, rehab)? @ -No Was there de-escalation of care discussed even if they declined (Discuss DNR or withdrawal of care, Hospice)? DNR status @ -No What co-morbidities impacted this encounter? (DM, HTN, Smoking, COPD, CAD, Cancer, CVA, ARF, Chemo, Hep., AIDS, mental health diagnosis, sleep apnea, morbid obesity)? @ -History of heart failure and COPD Was patient admitted / discharged? Hospital course, mention meds given and route, prescriptions, significant lab abnormalities, going to OR and other pertinent info. @ -Male with history of CHF and COPD presents to the emergency department for worsening dyspnea. Patient mildly dyspneic at the bedside. Vital signs within acceptable list. Patient slightly dyspneic. Patient has poor exchange with auscultation of the lungs. No obvious heart failure or wheezing. Laboratory evaluation obtained. CBC, metabolic panel is within acceptable limits D-dimer is age-adjusted normal. Metabolic panel is within acceptable limits. BNP is elevated 2000 with a troponin of 0.041. Patient has history of elevated troponin. Clinical presentation is likely multifactorial secondary to COPD and CHF. Patient treated with Lasix and breathing treatments. Will be admitted with consultation to pulmonology Did you discuss the management of the patient with other professionals (professionals i.e. , PA, SENIOR QUALITY ASSURANCE SPECIALIST, lab, RT, psych nurse, perinatal social worker, early intervention specialist, teacher, welfare officer, child support case officer)? Give summary @ -Case discussed with hospitalist for admission Was critical care preformed (if so, how long)? @ -No Undiagnosed new problem with uncertain prognosis? @ -No Drug Therapy requiring intensive monitoring for toxicity (Heparin, Nitro, Insulin, Cardizem)? @ -No Were any procedures done? @ -No Diagnosis/symptom? Acute, or Chronic, or Acute on Chronic? Uncomplicated (without systemic symptoms) or Complicated (systemic symptoms)? @ -Dyspnea Side effects of treatment? @ -No Exacerbation, Progression, or Severe Exacerbation? @ -No Poses a threat to life or bodily function? How? (Chest pain, USA, NH, pneumonia, PE, COPD, DKA, ARF, appy, cholecystitis, CVA, Diverticulitis, Homicidal, Suicidal, threat to staff... and all critical care pts) @ -yes - Lab Data Result diagrams: 10/13/24 04:27 10/13/24 04:27 Lab Results 10/13/24 10/13/24 10/13/24 Range/Units 04:27 04:27 04:27 WBC 9.8 (3.8-10.6) k/uL RBC 4.69 (4.30-5.90) m/uL Hgb 15.4 (13.0-17.5) gm/dL Hct 47.1 (39.0-53.0) % MCV 100.5 H (80.0-100.0) fL MCH 32.9 (25.0-35.0) pg MCHC 32.7 (31.0-37.0) g/dL RDW 14.9 (11.5-15.5) % Plt Count 185 (150-450) k/uL MPV 8.5 Neutrophils % 72 % Lymphocytes % 19 % Monocytes % 4 % Eosinophils % 3 % Basophils % 1 % Neutrophils # 7.1 (1.3-7.7) k/uL Lymphocytes # 1.9 (1.0-4.8) k/uL Monocytes # 0.4 (0-1.0) k/uL Eosinophils # 0.3 (0-0.7) k/uL Basophils # 0.1 (0-0.2) k/uL Macrocytosis Slight PT 10.4 (10.0-12.5) sec INR 0.9 (<1.2) APTT 23.9 (22.0-30.0) sec D-Dimer 0.64 H (<0.60) mg/L FEU Sodium 138 (137-145) mmol/L Potassium 4.0 (3.5-5.1) mmol/L Chloride 108 H (98-107) mmol/L Carbon Dioxide 21 L (22-30) mmol/L Anion Gap 9 mmol/L BUN 38 H (9-20) mg/dL Creatinine 1.58 H (0.66-1.25) mg/dL Est GFR (CKD-EPI)AfAm 47 (>60 ml/min/1.73 sqM) Est GFR (CKD-EPI)NonAf 41 (>60 ml/min/1.73 sqM) Glucose 236 H (74-99) mg/dL Plasma Lactic Acid Ashok (0.7-2.0) mmol/L Calcium 9.0 (8.4-10.2) mg/dL Magnesium 2.0 (1.6-2.3) mg/dL Total Bilirubin 1.3 (0.2-1.3) mg/dL AST 20 (17-59) U/L ALT 15 (4-49) U/L Alkaline Phosphatase 116 (38-126) U/L Troponin I (0.000-0.034) ng/mL NT-Pro-B Natriuret Pep 2440 pg/mL Total Protein 6.5 (6.3-8.2) g/dL Albumin 3.9 (3.5-5.0) g/dL Influenza Type A (PCR) (Not Detectd) Influenza Type B (PCR) (Not Detectd) RSV (PCR) (Not Detectd) SARS-CoV-2 (PCR) (Not Detectd) 10/13/24 10/13/24 10/13/24 Range/Units 04:27 04:27 04:27 WBC (3.8-10.6) k/uL RBC (4.30-5.90) m/uL Hgb (13.0-17.5) gm/dL Hct (39.0-53.0) % MCV (80.0-100.0) fL MCH (25.0-35.0) pg MCHC (31.0-37.0) g/dL RDW (11.5-15.5) % Plt Count (150-450) k/uL MPV Neutrophils % % Lymphocytes % % Monocytes % % Eosinophils % % Basophils % % Neutrophils # (1.3-7.7) k/uL Lymphocytes # (1.0-4.8) k/uL Monocytes # (0-1.0) k/uL Eosinophils # (0-0.7) k/uL Basophils # (0-0.2) k/uL Macrocytosis PT (10.0-12.5) sec INR (<1.2) APTT (22.0-30.0) sec D-Dimer (<0.60) mg/L FEU Sodium (137-145) mmol/L Potassium (3.5-5.1) mmol/L Chloride (98-107) mmol/L Carbon Dioxide (22-30) mmol/L Anion Gap mmol/L BUN (9-20) mg/dL Creatinine (0.66-1.25) mg/dL Est GFR (CKD-EPI)AfAm (>60 ml/min/1.73 sqM) Est GFR (CKD-EPI)NonAf (>60 ml/min/1.73 sqM) Glucose (74-99) mg/dL Plasma Lactic Acid Ashok 1.7 (0.7-2.0) mmol/L Calcium (8.4-10.2) mg/dL Magnesium (1.6-2.3) mg/dL Total Bilirubin (0.2-1.3) mg/dL AST (17-59) U/L ALT (4-49) U/L Alkaline Phosphatase (38-126) U/L Troponin I 0.041 H* (0.000-0.034) ng/mL NT-Pro-B Natriuret Pep pg/mL Total Protein (6.3-8.2) g/dL Albumin (3.5-5.0) g/dL Influenza Type A (PCR) Not Detected (Not Detectd) Influenza Type B (PCR) Not Detected (Not Detectd) RSV (PCR) Not Detected (Not Detectd) SARS-CoV-2 (PCR) Not Detected (Not Detectd) Disposition Clinical Impression: Dyspnea Disposition: ADMITTED IP TO THIS HOSP Condition: Fair Referrals: Nonstaff,Physician [REFERRING] - 1-2 days Decision Time: 06:13
[2024-10-13 04:39] LABS: Basophils # (A) 0.1 k/uL (0-0.2); Basophils % (A) 1 %; Eosinophils # (A) 0.3 k/uL (0-0.7); Eosinophils % (A) 3 %; HCT 47.1 % (39.0-53.0); HGB 15.4 gm/dL (13.0-17.5); Lymphocytes # (A) 1.9 k/uL (1.0-4.8); Lymphocytes % (A) 19 %; MCH 32.9 pg (25.0-35.0); MCHC 32.7 g/dL (31.0-37.0); MCV 100.5 fL (80.0-100.0); Macrocytosis Slight; Mean Platelet Volume 8.5; Monocytes # (A) 0.4 k/uL (0-1.0); Monocytes % (A) 4 %; Neutrophils # (A) 7.1 k/uL (1.3-7.7); Neutrophils % (A) 72 %; Platelet Count 185 k/uL (150-450); RBC 4.69 m/uL (4.30-5.90); RDW 14.9 % (11.5-15.5); WBC 9.8 k/uL (3.8-10.6)
[2024-10-13 04:48] LABS: ALT 15 U/L (4-49); AST 20 U/L (17-59); African American GFR (CKD) 47 (>60 ml/min/1.73 sqM); Albumin 3.9 g/dL (3.5-5.0); Alkaline Phosphatase 116 U/L (38-126); Anion Gap 9 mmol/L; Blood Urea Nitrogen 38 mg/dL (9-20); Carbon Dioxide 21 mmol/L (22-30); Chloride 108 mmol/L (98-107); Glucose 236 mg/dL (74-99); Non-African American GFR(CKD) 41 (>60 ml/min/1.73 sqM); Sodium 138 mmol/L (137-145); Total Bilirubin 1.3 mg/dL (0.2-1.3); Total Protein 6.5 g/dL (6.3-8.2)
[2024-10-13 04:57] LABS: INR 0.9 (<1.2); NT-Pro-B-Type Natriuretic Pept 2440 pg/mL; Partial Thromboplastin Time 23.9 sec (22.0-30.0); Prothrombin Time 10.4 sec (10.0-12.5)
--- NOTE | 2024-10-13 05:42 | XR ---
EXAM: XR Chest, 2 Views CLINICAL HISTORY: dyspnea TECHNIQUE: Frontal and lateral views of the chest. COMPARISON: 07/02/24 FINDINGS: Lungs: Small amount of bibasilar airspace opacities, similar on the prior study. Pleural space: Unremarkable. Mediastinum: Transcatheter aortic valve replacement (TAVR). Bones/joints: Sternal wires. IMPRESSION: Persistent bibasilar atelectasis and less likely pneumonia.
[2024-10-13] MEDS ORDERED: NALOXONE 0.4 MG/ML 1 ML VIAL IVP PRN (06:06)
[2024-10-13] MEDS: DEXAMETHASONE SOD PHOSPHATE 10 MG/ML 1 ML VIAL IV STA (06:11)
[2024-10-13] MEDS: FUROSEMIDE 10 MG/ML 4 ML VIAL IV STA (06:11)
[2024-10-13] MEDS: FUROSEMIDE 10 MG/ML 4 ML VIAL IV SCH (06:16)
[2024-10-13] MEDS ORDERED: DEXTROSE 50% SYRINGE 50 ML IVP PRN ×2 (07:48)
--- NOTE | 2024-10-13 07:50 | P.HPIM ---
History of Present Illness This is a pleasant 79 years old male with past medical history of multiple medical problems as below including COPD and for follow-up with Dr. Bell and heart failure and he follow-up with Dr. Peterson. Coronary artery disease status post CABG and stent placement. Chronic kidney disease stage III. Chronic hypoxic respiratory failure on 3 L oxygen via nasal cannula Patient presents because of worsening dyspnea over 3 to 4 days. He has chronic cough with little phlegm. He denies chest pain No overt GI/ symptoms. He has mild headache but no dizziness weakness or numbness He denies smoking alcohol or illicit drugs. He is afebrile. He is saturating 96% on 4 L oxygen via nasal cannula He has unremarkable CBC, liver enzymes. Creatinine is elevated at baseline 1.5. Recently his 1.4-1.5. INR 0.9. Mildly elevated troponin 0.04 proBNP is high at 2440 D-dimer 0.64 Ejection fraction is 45% on echo from 05/14/2029 Review of Systems Review of systems CONSTITUTIONAL: No fever, no malaise, no fatigue. HEENT: No recent visual problems or hearing problems. Denied any sore throat. CARDIOVASCULAR: No orthopnea, PND, no palpitations, no syncope. PULMONARY: No chest wall tenderness, no hemoptysis. GASTROINTESTINAL: No diarrhea, no nausea, no vomiting, no abdominal pain. Normoactive bowel sounds. NEUROLOGICAL: No headaches, no weakness, no numbness. HEMATOLOGICAL: Denies any bleeding or petechiae. GENITOURINARY: Denies any burning micturition, frequency, or urgency. MUSCULOSKELETAL/RHEUMATOLOGICAL: Denies any joint pain, swelling, or any muscle pain. ENDOCRINE: Denies any polyuria or polydipsia. Past Medical History Past Medical History: Heart Failure, COPD, Diabetes Mellitus, Hearing Disorder / Deafness, Osteoarthritis (OA) Additional Past Medical History / Comment(s): See Dr Gambino's H&P. Type 2 diabetic. Hard of hearing in left ear. Poor circulation in legs. History of Any Multi-Drug Resistant Organisms: None Reported Past Surgical History: Cardiac Valve Replacement, Orthopedic Surgery Additional Past Surgical History / Comment(s): Open heart surgery 3 VESSEL 2008, TAVR 2014, left wrist surgery. Past Anesthesia/Blood Transfusion Reactions: No Reported Reaction Past Psychological History: No Psychological Hx Reported Smoking Status: Former smoker - Past Family History Father Family Medical History: Cancer, Diabetes Mellitus Mother Family Medical History: Cancer, Deep Vein Thrombosis (DVT) Medications and Allergies Home Medications Medication Instructions Recorded Confirmed Type Atorvastatin [Lipitor] 40 mg PO HS 04/20/23 07/20/24 History Glimepiride [Amaryl] 4 mg PO BID 04/20/23 07/20/24 History Isosorbide Mononitrate [Isosorbide 30 mg PO QAM 04/20/23 07/20/24 History Mononitrate ER] Metoprolol Succinate (ER) [Toprol 100 mg PO QAM 04/20/23 07/20/24 History XL] Pregabalin [Lyrica] 75 mg PO QAM 04/20/23 07/20/24 History Tamsulosin [Flomax] 0.4 mg PO HS 04/20/23 07/20/24 History allopurinoL 100 mg PO HS 04/20/23 07/20/24 History Dapagliflozin Propanediol [Farxiga] 10 mg PO DAILY #30 tab 05/19/24 07/20/24 Rx Ipratropium-Albuterol Nebulize 3 ml INHALATION RT-Q4H PRN #100 05/19/24 07/20/24 Rx [Duoneb 0.5 mg-3 mg/3 ml Soln] each Pregabalin [Lyrica] 225 mg PO HS #30 cap 05/19/24 07/20/24 Rx Aspirin [Adult Low Dose Aspirin EC] 81 mg PO HS 07/20/24 07/23/24 History Cholecalciferol [Vitamin D3 (25 50 mcg PO BID 07/20/24 07/20/24 History Mcg = 1000 Iu)] Furosemide [Lasix] 40 mg PO BID 07/20/24 07/20/24 History Insulin Degludec [Tresiba 50 units SQ QAM 07/20/24 07/20/24 History Flextouch U-100 Pen] Psyllium Husk [Fiber Capsule] 0.4 gm PO QAM 07/20/24 07/20/24 History Allergies Allergy/AdvReac Type Severity Reaction Status Date / Time gabapentin Allergy Dyspnea Verified 10/13/24 04:10 Physical Exam Vitals: Vital Signs Temp Pulse Resp BP Pulse Ox 10/13/24 05:34 67 18 115/71 96 10/13/24 04:22 20 10/13/24 04:09 98 F 85 24 126/79 90 L Intake and Output 10/12/24 10/13/24 10/13/24 22:59 06:59 14:59 Other: Weight 114.305 kg GENERAL: The patient is alert and oriented x3, not in any acute distress. Well developed, well nourished. HEENT: Pupils are round and equally reacting to light. EOMI. No scleral icterus. No conjunctival pallor. Normocephalic, atraumatic. No pharyngeal erythema. No th yromegaly. CARDIOVASCULAR: S1 and S2 present. No murmurs, rubs, or gallops. -PULMONARY: Chest is clear to auscultation, no wheezing , no crackles. Decreased breath sounds on both sides ABDOMEN: Soft, nontender, nondistended, normoactive bowel sounds. No palpable organomegaly. MUSCULOSKELETAL: No joint swelling or deformity. -EXTREMITIES: No cyanosis, clubbing, 3+ bilateral pitting leg edema. NEUROLOGICAL: Gross neurological examination did not reveal any focal deficits. SKIN: No rashes. no petechiae. Results CBC & Chem 7: 10/13/24 04:27 10/13/24 04:27 Labs: Abnormal Lab Results - Last 24 Hours (Table) 10/13/24 10/13/24 10/13/24 Range/Units 04:27 04:27 04:27 MCV 100.5 H (80.0-100.0) fL D-Dimer 0.64 H (<0.60) mg/L FEU Chloride 108 H (98-107) mmol/L Carbon Dioxide 21 L (22-30) mmol/L BUN 38 H (9-20) mg/dL Creatinine 1.58 H (0.66-1.25) mg/dL Glucose 236 H (74-99) mg/dL Troponin I (0.000-0.034) ng/mL 10/13/24 Range/Units 04:27 MCV (80.0-100.0) fL D-Dimer (<0.60) mg/L FEU Chloride (98-107) mmol/L Carbon Dioxide (22-30) mmol/L BUN (9-20) mg/dL Creatinine (0.66-1.25) mg/dL Glucose (74-99) mg/dL Troponin I 0.041 H* (0.000-0.034) ng/mL Assessment and Plan Assessment: COPD acute exacerbation Acute on chronic heart failure Mildly elevated troponin could be secondary to heart failure and kidney disease Coronary artery disease status post CABG and stent placement. Chronic kidney disease stage III. Chronic hypoxic respiratory failure on 3 L oxygen via nasal cannula Obesity with BMI 35.1 Plan: Patient was started on IV Lasix 40 mg twice daily Also he was started on prednisone for 5 days Continue with Zithromax. Continue with bronchodilator. Cardiology and pulmonary consult Labs and medication were reviewed.. Continue same treatment. Continue with symptomatic treatment. Resume home medication. Monitor labs and vitals. DVT and GI prophylaxis. Further recommendations as per clinical course of the patient DVT prophylaxis: Sc heparin GI Prophylaxis: Pepcid PT/OT: Pending Prognosis is guarded
[2024-10-13] MEDS: AZITHROMYCIN 500 MG TAB PO SCH (08:39)
[2024-10-13] MEDS: predniSONE 20 MG TAB PO SCH (08:40)
[2024-10-13] MEDS: IPRATROPIUM-ALBUTEROL 3 ML NEB INHALATION STA ×2 (10:06→10:07)
[2024-10-13 11:55] LABS: Glucose,Whole Blood 386 mg/dL (70-110)
[2024-10-13] MEDS: INSULIN ASPART (NovoLOG) 100 UNIT/ML VIAL SQ SCH (12:01)
--- NOTE | 2024-10-13 14:39 | P.CRDCN ---
History of Present Illness History of present illness: HISTORY OF PRESENT ILLNESS: This is a 79-year-old male with a past medical history significant for coronary artery disease with previous CABG, valvular heart disease status post TAVR, con gestive heart failure, cardiomyopathy, hypertension, hyperlipidemia, diabetes, and chronic kidney disease. Patient follows in the office with Dr. Gambino. We have been asked to see the patient in consultation for CHF. Patient examined at the bedside in the ER. Patient presented to the ER due to a chief complaint of SOB. He states hes been feeling SOB for about a week. Denies chest pain or pressure. Denies fever or chills. Patient was found to be in acute CHF and was started on IV Lasix. Patient states he has not been using his inhalers as he cannot afford them. DIAGNOSTICS: - EKG reveals sinus mechanism with right bundle branch block. IVCD. - Chest xray persistent bibasilar atelectasis and less likely pneumonia - Laboratory data: WBC 9.8. Hemoglobin 15.4. Platelet count 185. D-dimer 0. 64. Sodium 138. Potassium 4.0. BUN 38. Creatinine 1.58. Troponin 0.041. proBNP 2440. - Current home cardiac medications include aspirin 81 mg at night, Lipitor 40 mg at night, Farxiga 10 mg daily, Lasix 40 mg twice a day, Imdur 30 mg daily, metoprolol succinate 100 mg daily - Most recent echocardiogram obtained in May 2024 revealing ejection fraction 45%, moderate TR, and prosthetic aortic valve - Cardiac catheterization history: July 2024 revealing subtotally occluded LAD with no graft identified to the LAD, severe disease involving the left circumflex with patent SVG to circumflex, mild disease involving RCA, mildly elevated left-sided filling pressures. REVIEW OF SYSTEMS: At the time of my exam: CONSTITUTIONAL: Denies fever or chills. HEENT: Denies blurred vision, vision changes, or eye pain. Denies hemoptysis CARDIOVASCULAR: Denies chest pain. Denies orthopnea. Denies PND. Denies palpitations RESPIRATORY: Denies shortness of breath. GASTROINTESTINAL: Denies abdominal pain. Denies nausea or vomiting. HEMATOLOGIC: Denies bleeding disorders. GENITOURINARY: Denies any blood in urine. SKIN: Denies pruitis. Denies rash. PHYSICAL EXAM: VITAL SIGNS: Reviewed. GENERAL: Well-developed in no acute distress. HEENT: Head is normocephalic. Pupils are equal, round. Sclerae anicteric. Mucous membranes of the mouth are moist. Neck supple. No JVD or thyromegaly LUNGS: Respirations even and unlabored. Lungs with decreased air exchange throughout HEART: Regular rate and rhythm. S1 and S2 heard. Systolic murmur noted ABDOMEN: Soft. Nondistended. Nontender. EXTREMITIES: Normal range of motion. No clubbing or cyanosis. Peripheral pulses intact. Bilateral lower extremity edema NEUROLOGIC: Awake and alert. Oriented x 3. ASSESSMENT: Shortness of breath Acute COPD exacerbation Acute on chronic heart failure with reduced EF Coronary artery disease with previous CABG, 2008 at [facility] History of TAVR, 2017, [facility] Chronic kidney disease Minimally elevated troponin, likely secondary to poor renal clearance, no evidence of myocardial injury or ischemia Hypertension Hyperlipidemia Diabetes Obesity: BMI 35.1 PLAN: No need to repeat echocardiogram Resume home cardiac medications Continue IV Lasix 40mg Q12 hours Daily weights, accurate intake and output, and monitoring of kidney function Consider adding JANES/ARB if kidney function remains stable Further recommendations pending patient course Nurse practitioner note has been reviewed by physician. Signing provider agrees with the documented findings, assessment, and plan of care documented by IT SECURITY ANALYST as a scribe. Past Medical History Past Medical History: Heart Failure, COPD, Diabetes Mellitus, Hearing Disorder / Deafness, Osteoarthritis (OA) Additional Past Medical History / Comment(s): See Dr Gambino's H&P. Type 2 diabetic. Hard of hearing in left ear. Poor circulation in legs. History of Any Multi-Drug Resistant Organisms: None Reported Past Surgical History: Cardiac Valve Replacement, Orthopedic Surgery Additional Past Surgical History / Comment(s): Open heart surgery 3 VESSEL 2008, TAVR 2014, left wrist surgery. Past Anesthesia/Blood Transfusion Reactions: No Reported Reaction Past Psychological History: No Psychological Hx Reported Smoking Status: Former smoker - Past Family History Father Family Medical History: Cancer, Diabetes Mellitus Mother Family Medical History: Cancer, Deep Vein Thrombosis (DVT) Medications and Allergies Home Medications Medication Instructions Recorded Confirmed Type Atorvastatin [Lipitor] 40 mg PO HS 04/20/23 10/13/24 History Glimepiride [Amaryl] 4 mg PO BID 04/20/23 10/13/24 History Isosorbide Mononitrate [Isosorbide 30 mg PO QAM 04/20/23 10/13/24 History Mononitrate ER] Metoprolol Succinate (ER) [Toprol 100 mg PO QAM 04/20/23 10/13/24 History XL] Pregabalin [Lyrica] 75 mg PO QAM 04/20/23 10/13/24 History Tamsulosin [Flomax] 0.4 mg PO HS 04/20/23 10/13/24 History allopurinoL 100 mg PO HS 04/20/23 10/13/24 History Dapagliflozin Propanediol [Farxiga] 10 mg PO DAILY #30 tab 05/19/24 10/13/24 Rx Ipratropium-Albuterol Nebulize 3 ml INHALATION RT-Q4H PRN #100 05/19/24 10/13/24 Rx [Duoneb 0.5 mg-3 mg/3 ml Soln] each Pregabalin [Lyrica] 225 mg PO HS #30 cap 05/19/24 10/13/24 Rx Aspirin [Adult Low Dose Aspirin EC] 81 mg PO HS 07/20/24 10/13/24 History Cholecalciferol [Vitamin D3 (25 50 mcg PO BID 07/20/24 10/13/24 History Mcg = 1000 Iu)] Furosemide [Lasix] 40 mg PO BID 07/20/24 10/13/24 History Insulin Degludec [Tresiba 50 units SQ QA 07/20/24 10/13/24 History Flextouch U-100 Pen] Psyllium Husk [Fiber Capsule] 0.4 gm PO QA 07/20/24 10/13/24 History Allergies Allergy/AdvReac Type Severity Reaction Status Date / Time gabapentin Allergy Dyspnea Verified 10/13/24 11:00 Physical Exam Vitals: Vital Signs Temp Pulse Resp BP Pulse Ox 10/13/24 11:07 72 18 119/78 94 L 10/13/24 10:15 67 10/13/24 10:09 66 10/13/24 08:37 97.6 F 71 22 126/73 97 10/13/24 05:34 67 18 115/71 96 10/13/24 04:22 20 10/13/24 04:09 98 F 85 24 126/79 90 L Intake and Output 10/12/24 10/13/24 10/13/24 22:59 06:59 14:59 Output Total 700 Balance -700 Output: Urine 700 Other: Weight 114.305 kg Results 10/13/24 04:27 10/13/24 04:27 Cardiac Enzymes 10/13/24 10/13/24 Range/Units 04:27 04:27 AST 20 (17-59) U/L Troponin I 0.041 H* (0.000-0.034) ng/mL Coagulation 10/13/24 Range/Units 04:27 PT 10.4 (10.0-12.5) sec APTT 23.9 (22.0-30.0) sec CBC 10/13/24 Range/Units 04:27 WBC 9.8 (3.8-10.6) k/uL RBC 4.69 (4.30-5.90) m/uL Hgb 15.4 (13.0-17.5) gm/dL Hct 47.1 (39.0-53.0) % Plt Count 185 (150-450) k/uL Comprehensive Metabolic Panel 10/13/24 Range/Units 04:27 Sodium 138 (137-145) mmol/L Potassium 4.0 (3.5-5.1) mmol/L Chloride 108 H (98-107) mmol/L Carbon Dioxide 21 L (22-30) mmol/L BUN 38 H (9-20) mg/dL Creatinine 1.58 H (0.66-1.25) mg/dL Glucose 236 H (74-99) mg/dL Calcium 9.0 (8.4-10.2) mg/dL AST 20 (17-59) U/L ALT 15 (4-49) U/L Alkaline Phosphatase 116 (38-126) U/L Total Protein 6.5 (6.3-8.2) g/dL Albumin 3.9 (3.5-5.0) g/dL Current Medications Generic Name Dose Route Start Last Admin Trade Name Freq PRN Reason Stop Dose Admin Albuterol/Ipratropium 3 ml 10/13/24 07:46 Ipratropium-Albuterol 3 Ml Neb INHALATION RT-QID PRN Shortness Of Breath Or Wheezing Azithromycin 500 mg 10/13/24 09:00 10/13/24 08:39 Azithromycin 500 Mg Tab PO 10/15/24 09:01 500 mg DAILY HAJA Administration Protocol Dextrose/Water 25 ml 10/13/24 07:48 Dextrose 50% Syringe 50 Ml IVP PER PROTOCOL PRN Hypoglycemia Protocol Dextrose/Water 50 ml 10/13/24 07:48 Dextrose 50% Syringe 50 Ml IVP PER PROTOCOL PRN Hypoglycemia Protocol Furosemide 40 mg 10/13/24 06:15 10/13/24 06:16 Furosemide 10 Mg/Ml 4 Ml Vial IV 40 mg Q12H HAJA Administration Insulin Aspart 0 unit 10/13/24 12:30 10/13/24 12:01 Insulin Aspart (Novolog) 100 Unit/Ml Vial SQ 5 unit ACHS HAJA Administration Protocol Naloxone HCl 0.2 mg 10/13/24 06:06 Naloxone 0.4 Mg/Ml 1 Ml Vial IVP Q2M PRN Opioid Reversal Prednisone 40 mg 10/13/24 09:00 10/13/24 08:40 Prednisone 20 Mg Tab PO 10/17/24 09:01 40 mg DAILY HAJA Administration Intake and Output 10/12/24 10/13/24 10/13/24 22:59 06:59 14:59 Output Total 700 Balance -700 Output: Urine 700 Other: Weight 114.305 kg 10/13/24 04:27 10/13/24 04:27
--- NOTE | 2024-10-13 15:25 | P.CNPUL ---
History of Present Illness Consult date: 10/13/24 Requesting physician: Jorden Shannon Reason for consult: dyspnea, COPD Chief complaint: Shortness of breath History of present illness: This is an 79-year-old gentleman with a known history of chronic obstructive pulmonary disease, former smoker, home oxygen at 3 L 27/05, diabetes mellitus, coronary artery disease with previous CABG, congestive heart failure hypertension, hyperlipidemia. He presented here to the emergency room early this morning with complaints of increasing shortness of breath and lower extremity edema. Chest x-ray reveals bibasilar atelectasis. 15.4. Platelets 185. D-dimer 0.64. Sodium 138. Potassium 4.0. Bicarb 21. BUN 38. Creatinine 1.58. Glucose 236. Troponin 0.041. proBNP 2440. Viral screen negative. He has been initiated on IV diuretics. Initiated on antibiotics. Procalcitonin pending. He is seen in consultation in the emergency department. Currently sitting up on a stretcher. Awake and alert in no acute distress. Maintaining O2 saturations in the 90s on 4 L/min per nasal cannula. He is afebrile. Hemodynamically stable. Review of Systems REVIEW OF SYSTEMS: CONSTITUTIONAL: Denies any recent significant weight loss or weight gain. EYES: Denies change in vision. EARS, NOSE, MOUTH, THROAT: Denies headaches, denies sore throat. CARDIOVASCULAR: Denies chest pain, palpitations or syncopal episodes. RESPIRATORY: Positive for shortness of breath, no cough, congestion or hemoptysis. GASTROINTESTINAL: Denies change in appetite, denies abdominal pain GENITOURINARY: Denies hematuria, denies infections. MUSKULOSKELETAL: Positive for lower extremity swelling. INTEGUMENTARY: Denies rash, denies eczema. NEUROLOGICAL: Denies recent memory loss, no recent seizure activity. PSYCHIATRIC: Denies anxiety, denies depression. HEMATOLOGIC/LYMPHATIC: Denies anemia, denies enlarged lymph nodes. Past Medical History Past Medical History: Heart Failure, COPD, Diabetes Mellitus, Hearing Disorder / Deafness, Osteoarthritis (OA) Additional Past Medical History / Comment(s): See Dr Gambino's H&P. Type 2 diabetic. Hard of hearing in left ear. Poor circulation in legs. History of Any Multi-Drug Resistant Organisms: None Reported Past Surgical History: Cardiac Valve Replacement, Orthopedic Surgery Additional Past Surgical History / Comment(s): Open heart surgery 3 VESSEL 2008, TAVR 2014, left wrist surgery. Past Anesthesia/Blood Transfusion Reactions: No Reported Reaction Past Psychological History: No Psychological Hx Reported Smoking Status: Former smoker - Past Family History Father Family Medical History: Cancer, Diabetes Mellitus Mother Family Medical History: Cancer, Deep Vein Thrombosis (DVT) Medications and Allergies Home Medications Medication Instructions Recorded Confirmed Type Atorvastatin [Lipitor] 40 mg PO HS 04/20/23 10/13/24 History Glimepiride [Amaryl] 4 mg PO BID 04/20/23 10/13/24 History Isosorbide Mononitrate [Isosorbide 30 mg PO QAM 04/20/23 10/13/24 History Mononitrate ER] Metoprolol Succinate (ER) [Toprol 100 mg PO QAM 04/20/23 10/13/24 History XL] Pregabalin [Lyrica] 75 mg PO QAM 04/20/23 10/13/24 History Tamsulosin [Flomax] 0.4 mg PO HS 04/20/23 10/13/24 History allopurinoL 100 mg PO HS 04/20/23 10/13/24 History Dapagliflozin Propanediol [Farxiga] 10 mg PO DAILY #30 tab 05/19/24 10/13/24 Rx Ipratropium-Albuterol Nebulize 3 ml INHALATION RT-Q4H PRN #100 05/19/24 10/13/24 Rx [Duoneb 0.5 mg-3 mg/3 ml Soln] each Pregabalin [Lyrica] 225 mg PO HS #30 cap 05/19/24 10/13/24 Rx Aspirin [Adult Low Dose Aspirin EC] 81 mg PO HS 07/20/24 10/13/24 History Cholecalciferol [Vitamin D3 (25 50 mcg PO BID 07/20/24 10/13/24 History Mcg = 1000 Iu)] Furosemide [Lasix] 40 mg PO BID 07/20/24 10/13/24 History Insulin Degludec [Tresiba 50 units SQ QAM 07/20/24 10/13/24 History Flextouch U-100 Pen] Psyllium Husk [Fiber Capsule] 0.4 gm PO QAM 07/20/24 10/13/24 History Allergies Allergy/AdvReac Type Severity Reaction Status Date / Time gabapentin Allergy Dyspnea Verified 10/13/24 11:00 Physical Exam Vitals: Vital Signs Temp Pulse Resp BP Pulse Ox 10/13/24 14:24 79 18 129/81 95 10/13/24 11:07 72 18 119/78 94 L 10/13/24 10:15 67 10/13/24 10:09 66 10/13/24 08:37 97.6 F 71 22 126/73 97 10/13/24 05:34 67 18 115/71 96 10/13/24 04:22 20 10/13/24 04:09 98 F 85 24 126/79 90 L Intake and Output 10/13/24 10/13/24 10/13/24 06:59 14:59 22:59 Intake Total 16 Output Total 1300 Balance -1284 Intake: Oral 16 Output: Urine 1300 Other: # Voids 2 Weight 114.305 kg GENERAL EXAM: Alert, pleasant 79-year-old gentleman, on 4 L nasal cannula, fairly comfortable in no apparent distress. HEAD: Normocephalic. EYES: Normal reaction of pupils, equal size. NOSE: Clear with pink turbinates. THROAT: No erythema or exudates. NECK: No masses, no JVD. CHEST: No chest wall deformity. LUNGS: Equal air entry with with crackles in the bilateral bases, diminished. CVS: S1 and S2 normal with no audible murmur, regular rhythm. ABDOMEN: No hepatosplenomegaly, normal bowel sounds, no guarding or rigidity. SPINE: No scoliosis or deformity SKIN: No rashes CENTRAL NERVOUS SYSTEM: No focal deficits, tone is normal in all 4 extremities. EXTREMITIES: There is 1-2+ peripheral edema. No clubbing, no cyanosis. Peripheral pulses are intact. Results - Laboratory Findings CBC and BMP: 10/13/24 04:27 10/13/24 04:27 PT/INR, D-dimer PT 10.4 sec (10.0-12.5) 10/13/24 04:27 INR 0.9 (<1.2) 10/13/24 04:27 D-Dimer 0.64 mg/L FEU (<0.60) H 10/13/24 04:27 Abnormal lab findings: Abnormal Labs 10/13/24 10/13/24 10/13/24 04:27 04:27 04:27 MCV 100.5 H D-Dimer 0.64 H Chloride 108 H Carbon Dioxide 21 L BUN 38 H Creatinine 1.58 H Glucose 236 H POC Glucose (mg/dL) Troponin I 10/13/24 10/13/24 04:27 11:54 MCV D-Dimer Chloride Carbon Dioxide BUN Creatinine Glucose POC Glucose (mg/dL) 386 H Troponin I 0.041 H* - Diagnostic Findings Chest x-ray: image reviewed Assessment and Plan Assessment: Acute on chronic hypoxemic respiratory failure secondary to acute exacerbation of systolic congestive heart failure Acute kidney injury Troponin leak Oxygen dependent chronic obstructive pulmonary disease Former smoker Coronary artery disease with previous coronary artery bypass grafting History of aortic stenosis with previous TAVR Diabetes mellitus, type II Hypertension Hyperlipidemia History of gout Moderate pulmonary hypertension Plan: The patient was seen and evaluated Chest x-ray, labs and medications reviewed Titrate the FiO2 as tolerated Continue a prednisone taper Continue IV diuretics Check a procalcitonin Continue azithromycin for now We will continue to follow and make further recommendations based on his clinical status I have personally seen and examined the patient, performed the documentation and the assessment and plan as written. Number of minutes spent on the visit: 20 Dictation was produced using [employer] dictation software. Please excuse any grammatical, word or spelling errors.
[2024-10-13] MEDS: IPRATROPIUM-ALBUTEROL 3 ML NEB INHALATION PRN (15:39)
[2024-10-13 16:57] LABS: Glucose,Whole Blood 524 mg/dL (70-110)
[2024-10-13] MEDS: INSULIN ASPART (NovoLOG) 100 UNIT/ML VIAL SQ ONE (17:53)
[2024-10-13 20:12] LABS: Glucose,Whole Blood >600 mg/dL (70-110)
[2024-10-13 20:12] LABS: Glucose,Whole Blood 571 mg/dL (70-110)
[2024-10-13] MEDS ORDERED: Potassium Replacement Protocol 1 EACH MISC MISCELLANE PRN (20:56)
[2024-10-13] MEDS ORDERED: Magnesium Replacement Protocol 1 EACH MISC MISCELLANE PRN (20:56)
[2024-10-13] MEDS: ASPIRIN 81 MG PO SCH (20:59)
[2024-10-13] MEDS: PREGABALIN 100 MG CAP PO STA (20:59)
[2024-10-13] MEDS ORDERED: INSULIN DETEMIR (LEVEMIR) 100 UNIT/ML SYR SQ SCH (21:00)
[2024-10-13] MEDS: ATORVASTATIN 40 MG TAB PO SCH (21:00)
[2024-10-13 21:06] LABS: Chol/HDL Ratio 4.83 Ratio; HDL Cholesterol 25.9 mg/dL (40.00-60.00); VLDL Calculation 109.4 mg/dL (5.00-40.00)
[2024-10-13 21:44] LABS: Basophils % (A) 0 %; Eosinophils # (A) 0.1 k/uL (0-0.7); Eosinophils % (A) 1 %; HGB 15.8 gm/dL (13.0-17.5); Hypochromasia Slight; Lymphocytes # (A) 0.9 k/uL (1.0-4.8); Lymphocytes % (A) 12 %; MCH 33.7 pg (25.0-35.0); MCHC 32.8 g/dL (31.0-37.0); MCV 102.7 fL (80.0-100.0); Macrocytosis Slight; Monocytes # (A) 0.2 k/uL (0-1.0); Monocytes % (A) 3 %; Neutrophils # (A) 6.6 k/uL (1.3-7.7); Neutrophils % (A) 84 %; Platelet Count 172 k/uL (150-450); RBC 4.68 m/uL (4.30-5.90); RDW 14.8 % (11.5-15.5); WBC 7.9 k/uL (3.8-10.6)
[2024-10-13 22:00] LABS: African American GFR (CKD) 44 (>60 ml/min/1.73 sqM); Anion Gap 10 mmol/L; Blood Urea Nitrogen 42 mg/dL (9-20); Carbon Dioxide 24 mmol/L (22-30); Chloride 101 mmol/L (98-107); Non-African American GFR(CKD) 38 (>60 ml/min/1.73 sqM); Potassium 4.4 mmol/L (3.5-5.1); Sodium 135 mmol/L (137-145)
[2024-10-13] MEDS: SODIUM CHLORIDE 0.9% 1,000 ML IV SCH (22:04)
[2024-10-13 22:09] LABS: Glucose 586 mg/dL (74-99)
[2024-10-13] MEDS: INSULIN REGULAR 100 UNIT in SODIUM CHLORIDE 0.9% 100 ML IV SCH (22:20)
[2024-10-13 23:25] LABS: Glucose,Whole Blood 519 mg/dL (70-110)
[2024-10-14 00:26] LABS: Glucose,Whole Blood 444 mg/dL (70-110)
[2024-10-14] MEDS: D5-0.45% NACL WITH KCL 20MEQ/L 1,000 ML IV SCH ×2 (00:41→08:06)
[2024-10-14 01:04] LABS: African American GFR (CKD) 47 (>60 ml/min/1.73 sqM); Anion Gap 14 mmol/L; Blood Urea Nitrogen 42 mg/dL (9-20); Carbon Dioxide 21 mmol/L (22-30); Chloride 101 mmol/L (98-107); Glucose 482 mg/dL (74-99); Non-African American GFR(CKD) 41 (>60 ml/min/1.73 sqM); Potassium 4.1 mmol/L (3.5-5.1); Sodium 136 mmol/L (137-145)
[2024-10-14 01:40] LABS: Glucose,Whole Blood 442 mg/dL (70-110)
[2024-10-14 02:38] LABS: Glucose,Whole Blood 353 mg/dL (70-110)
[2024-10-14 03:45] LABS: Glucose,Whole Blood 311 mg/dL (70-110)
[2024-10-14 04:13] LABS: Basophils % (A) 0 %; Eosinophils # (A) 0.1 k/uL (0-0.7); Eosinophils % (A) 1 %; HCT 47.8 % (39.0-53.0); HGB 15.7 gm/dL (13.0-17.5); Hypochromasia Slight; Lymphocytes # (A) 1.1 k/uL (1.0-4.8); Lymphocytes % (A) 12 %; MCH 33.3 pg (25.0-35.0); MCHC 32.8 g/dL (31.0-37.0); MCV 101.7 fL (80.0-100.0); Macrocytosis Slight; Mean Platelet Volume 8.7; Monocytes # (A) 0.5 k/uL (0-1.0); Monocytes % (A) 5 %; Neutrophils # (A) 7.6 k/uL (1.3-7.7); Neutrophils % (A) 82 %; Platelet Count 171 k/uL (150-450); RBC 4.71 m/uL (4.30-5.90); RDW 14.9 % (11.5-15.5); WBC 9.3 k/uL (3.8-10.6)
[2024-10-14 04:26] LABS: African American GFR (CKD) 48 (>60 ml/min/1.73 sqM); Anion Gap 13 mmol/L; Blood Urea Nitrogen 41 mg/dL (9-20); Carbon Dioxide 25 mmol/L (22-30); Chloride 104 mmol/L (98-107); Glucose 288 mg/dL (74-99); Non-African American GFR(CKD) 42 (>60 ml/min/1.73 sqM); Sodium 142 mmol/L (137-145)
[2024-10-14 04:40] LABS: Glucose,Whole Blood 316 mg/dL (70-110)
[2024-10-14 05:38] LABS: Glucose,Whole Blood 243 mg/dL (70-110)
[2024-10-14 06:34] LABS: Glucose,Whole Blood 255 mg/dL (70-110)
--- NOTE | 2024-10-14 07:10 | P.PN ---
Subjective This is a pleasant 79 years old male with past medical history of multiple medical problems as below including COPD and for follow-up with Dr. Bell and heart failure and he follow-up with Dr. Peterson. Coronary artery disease status post CABG and stent placement. Chronic kidney disease stage III. Chronic hypoxic respiratory failure on 3 L oxygen via nasal cannula Patient presents because of worsening dyspnea over 3 to 4 days. He has chronic cough with little phlegm. He denies chest pain No overt GI/ symptoms. He has mild headache but no dizziness weakness or numbness He denies smoking alcohol or illicit drugs. He is afebrile. He is saturating 96% on 4 L oxygen via nasal cannula He has unremarkable CBC, liver enzymes. Creatinine is elevated at baseline 1.5. Recently his 1.4-1.5. INR 0.9. Mildly elevated troponin 0.04 proBNP is high at 2440 D-dimer 0.64 Ejection fraction is 45% on echo from 05/14/2029 10/14/2024 Patient dyspnea is better He has minimal distal capitation but 3+ bilateral pitting leg edema. He sitting up at the bedside. He drinks more water, patient consult with fluid restriction. However I am not sure if he is going to follow-up the recommendation. Risk and benefit explained No chest pain He is at 2 L oxygen via nasal cannula saturating 97%. At home he uses 3 L. Patient confirms he has oxygen at home. Patient currently on IV Lasix 40 mg twice daily. Also he is on prednisone 40 mg for possible COPD exacerbation Patient has chronic cough. No recent worsening. We can discontinue Zithromax. Review of systems CONSTITUTIONAL: No fever, no malaise, no fatigue. HEENT: No recent visual problems or hearing problems. Denied any sore throat. CARDIOVASCULAR: No orthopnea, PND, no palpitations, no syncope. GENITOURINARY: Denies any burning micturition, frequency, or urgency. MUSCULOSKELETAL/RHEUMATOLOGICAL: Denies any joint pain, swelling, or any muscle pain. ENDOCRINE: Denies any polyuria or polydipsia. Active Medications Generic Name Dose Route Start Last Admin Trade Name Freq PRN Reason Stop Dose Admin Albuterol/Ipratropium 3 ml 10/13/24 07:46 10/13/24 21:22 Ipratropium-Albuterol 3 Ml Neb INHALATION 3 ml RT-QID PRN Administration Shortness Of Breath Or Wheezing Aspirin 81 mg 10/13/24 21:00 10/13/24 20:59 Aspirin 81 Mg PO 81 mg HS HAJA Administration Atorvastatin Calcium 40 mg 10/13/24 21:00 10/13/24 21:00 Atorvastatin 40 Mg Tab PO 40 mg HS HAJA Administration Azithromycin 500 mg 10/13/24 09:00 10/13/24 08:39 Azithromycin 500 Mg Tab PO 10/15/24 09:01 500 mg DAILY HAJA Administration Protocol Dapagliflozin 10 mg 10/14/24 09:00 Dapagliflozin Propanediol 10 Mg Tablet PO DAILY HAJA Dextrose/Water 25 ml 10/13/24 07:48 Dextrose 50% Syringe 50 Ml IVP PER PROTOCOL PRN Hypoglycemia Protocol Dextrose/Water 50 ml 10/13/24 07:48 Dextrose 50% Syringe 50 Ml IVP PER PROTOCOL PRN Hypoglycemia Protocol Furosemide 40 mg 10/13/24 06:15 10/14/24 06:28 Furosemide 10 Mg/Ml 4 Ml Vial IV 40 mg Q12H HAJA Administration Insulin Human Regular 100 unit 100 mls @ 0 mls/hr 10/13/24 21:30 10/14/24 05:39 / Sodium Chloride IV 27.86 units/hr .Q0M HAJA 27.86 mls/hr Titration Protocol Titrate Sodium Chloride 1,000 mls @ 200 mls/hr 10/13/24 21:00 10/14/24 05:05 Saline 0.9% IV 200 mls/hr .Q5H HAJA Administration Potassium Chloride/Dextrose/Sod Cl 1,000 mls @ 150 mls/hr 10/14/24 06:00 D5%-1/2ns-Kcl 20 Meq/L Iv Solution IV .Q6H40M HAJA Isosorbide Mononitrate 30 mg 10/14/24 09:00 Isosorbide Mononitrate Er 30 Mg Tab.Er.24h PO QAM HAJA Metoprolol Succinate 100 mg 10/14/24 09:00 Metoprolol Succinate (Er) 100 Mg Tab.Er.24h PO QAM HAJA Miscellaneous Information 1 each 10/13/24 20:56 Magnesium Replacement Protocol 1 Each Misc MISCELLANE DAILY PRN Per Protocol Protocol Miscellaneous Information 1 each 10/13/24 20:56 Potassium Replacement Protocol 1 Each Misc MISCELLANE DAILY PRN Per Protocol Naloxone HCl 0.2 mg 10/13/24 06:06 Naloxone 0.4 Mg/Ml 1 Ml Vial IVP Q2M PRN Opioid Reversal Prednisone 40 mg 10/13/24 09:00 10/13/24 08:40 Prednisone 20 Mg Tab PO 10/17/24 09:01 40 mg DAILY HAJA Administration Objective - Vital Signs Vital signs: Vital Signs Temp 97.6 F 10/13/24 08:37 Pulse 61 10/14/24 06:31 Resp 16 10/14/24 06:31 BP 106/74 10/14/24 06:31 Pulse Ox 97 10/14/24 06:31 FiO2 Intake & Output 10/13/24 10/14/24 10/14/24 18:59 06:59 18:59 Intake Total 16 131.221 Output Total 1300 1900 Balance -4204 -6524.709 Intake: Intake, IV Titration 115.221 Amount Insulin Regular 100 unit 115.221 In Sodium Chloride 0.9% 100 ml @ Titrate IV .Q0M HAJA Rx#:[id number] Oral 16 16 Output: Urine 1300 1900 Other: # Voids 2 4 - Exam -GENERAL: The patient is alert and oriented x3, not in any acute distress. Well developed, well nourished. Obese HEENT: Pupils are round and equally reacting to light. EOMI. No scleral icterus. No conjunctival pallor. Normocephalic, atraumatic. No pharyngeal erythema. No thyromegaly. CARDIOVASCULAR: S1 and S2 present. No murmurs, rubs, or gallops. PULMONARY: Chest is clear to auscultation, no wheezing , no crackles. ABDOMEN: Soft, nontender, nondistended, normoactive bowel sounds. No palpable organomegaly. MUSCULOSKELETAL: No joint swelling or deformity. -EXTREMITIES: No cyanosis, clubbing, 3+ bilateral pitting leg edema NEUROLOGICAL: Gross neurological examination did not reveal any focal deficits. SKIN: No rashes. no petechiae. - Labs CBC & Chem 7: 10/14/24 03:58 10/14/24 03:58 Labs: Abnormal Lab Results - Last 24 Hours (Table) 10/13/24 10/13/24 10/13/24 Range/Units 04:27 11:54 16:56 MCV (80.0-100.0) fL Lymphocytes # (1.0-4.8) k/uL Sodium (137-145) mmol/L Carbon Dioxide (22-30) mmol/L BUN (9-20) mg/dL Creatinine (0.66-1.25) mg/dL Glucose (74-99) mg/dL POC Glucose (mg/dL) 386 H 524 H* (70-110) mg/dL Triglycerides 547.00 H (0.00-149.00) mg/dL VLDL Cholesterol, Calc 109.40 H (5.00-40.00) mg/dL HDL Cholesterol 25.90 L (40.00-60.00) mg/dL 10/13/24 10/13/24 10/13/24 Range/Units 20:09 20:10 21:26 MCV 102.7 H (80.0-100.0) fL Lymphocytes # 0.9 L (1.0-4.8) k/uL Sodium (137-145) mmol/L Carbon Dioxide (22-30) mmol/L BUN (9-20) mg/dL Creatinine (0.66-1.25) mg/dL Glucose (74-99) mg/dL POC Glucose (mg/dL) 571 H* >600 H* (70-110) mg/dL Triglycerides (0.00-149.00) mg/dL VLDL Cholesterol, Calc (5.00-40.00) mg/dL HDL Cholesterol (40.00-60.00) mg/dL 10/13/24 10/13/24 10/14/24 Range/Units 21:26 23:23 00:23 MCV (80.0-100.0) fL Lymphocytes # (1.0-4.8) k/uL Sodium 135 L 136 L (137-145) mmol/L Carbon Dioxide 21 L (22-30) mmol/L BUN 42 H 42 H (9-20) mg/dL Creatinine 1.67 H 1.58 H (0.66-1.25) mg/dL Glucose 586 H* 482 H (74-99) mg/dL POC Glucose (mg/dL) 519 H* (70-110) mg/dL Triglycerides (0.00-149.00) mg/dL VLDL Cholesterol, Calc (5.00-40.00) mg/dL HDL Cholesterol (40.00-60.00) mg/dL 1210/14/24 10/14/24 Range/Units 00:26 01:38 02:37 MCV (80.0-100.0) fL Lymphocytes # (1.0-4.8) k/uL Sodium (137-145) mmol/L Carbon Dioxide (22-30) mmol/L BUN (9-20) mg/dL Creatinine (0.66-1.25) mg/dL Glucose (74-99) mg/dL POC Glucose (mg/dL) 444 H 442 H 353 H (70-110) mg/dL Triglycerides (0.00-149.00) mg/dL VLDL Cholesterol, Calc (5.00-40.00) mg/dL HDL Cholesterol (40.00-60.00) mg/dL 10/14/24 10/14/24 10/14/24 Range/Units 03:43 03:58 03:58 MCV 101.7 H (80.0-100.0) fL Lymphocytes # (1.0-4.8) k/uL Sodium (137-145) mmol/L Carbon Dioxide (22-30) mmol/L BUN 41 H (9-20) mg/dL Creatinine 1.55 H (0.66-1.25) mg/dL Glucose 288 H (74-99) mg/dL POC Glucose (mg/dL) 311 H (70-110) mg/dL Triglycerides (0.00-149.00) mg/dL VLDL Cholesterol, Calc (5.00-40.00) mg/dL HDL Cholesterol (40.00-60.00) mg/dL 10/14/24 10/14/24 10/14/24 Range/Units 04:39 05:37 06:33 MCV (80.0-100.0) fL Lymphocytes # (1.0-4.8) k/uL Sodium (137-145) mmol/L Carbon Dioxide (22-30) mmol/L BUN (9-20) mg/dL Creatinine (0.66-1.25) mg/dL Glucose (74-99) mg/dL POC Glucose (mg/dL) 316 H 243 H 255 H (70-110) mg/dL Triglycerides (0.00-149.00) mg/dL VLDL Cholesterol, Calc (5.00-40.00) mg/dL HDL Cholesterol (40.00-60.00) mg/dL Assessment and Plan Assessment: Acute on chronic heart failure Mildly elevated troponin could be secondary to heart failure and kidney disease Possible mild COPD acute exacerbation Coronary artery disease status post CABG and stent placement. Chronic kidney disease stage III. Chronic hypoxic respiratory failure on 3 L oxygen via nasal cannula Obesity with BMI 35.1 Plan: Patient was started on IV Lasix 40 mg twice daily Also he was started on prednisone for 5 days Discontinue with Zithromax. Add fluid restriction Continue with bronchodilator. Cardiology and pulmonary consult Labs and medication were reviewed.. Continue same treatment. Continue with symptomatic treatment. Resume home medication. Monitor labs and vitals. DVT and GI prophylaxis. Further recommendations as per clinical course of the patient DVT prophylaxis: Sc heparin GI Prophylaxis: Pepcid PT/OT: Pending Prognosis is guarded
[2024-10-14 07:54] LABS: Glucose,Whole Blood 168 mg/dL (70-110)
[2024-10-14] MEDS: METOPROLOL SUCCINATE (ER) 100 MG TAB.ER.24H PO SCH (08:24)
[2024-10-14] MEDS: ISOSORBIDE MONONITRATE ER 30 MG TAB.ER.24H PO SCH (08:24)
[2024-10-14] MEDS: DAPAGLIFLOZIN PROPANEDIOL 10 MG TABLET PO SCH (08:24)
--- NOTE | 2024-10-14 09:20 | P.PN ---
Subjective HISTORY OF PRESENT ILLNESS: This is a 79-year-old male with a past medical history significant for coronary artery disease with previous CABG, valvular heart disease status post TAVR, congestive heart failure, cardiomyopathy, hypertension, hyperlipidemia, diabetes, and chronic kidney disease. Patient follows in the office with Dr. Gambino. We have been asked to see the patient in consultation for CHF. Patient examined at the bedside in the ER. Patient presented to the ER due to a chief complaint of SOB. He states hes been feeling SOB for about a week. Denies chest pain or pressure. Denies fever or chills. Patient was found to be in acute CHF and was started on IV Lasix. Patient states he has not been using his inhalers as he cannot afford them. DIAGNOSTICS: - EKG reveals sinus mechanism with right bundle branch block. IVCD. - Chest xray persistent bibasilar atelectasis and less likely pneumonia - Laboratory data: WBC 9.8. Hemoglobin 15.4. Platelet count 185. D-dimer 0.64. Sodium 138. Potassium 4.0. BUN 38. Creatinine 1.58. Troponin 0.041. proBNP 2440. - Current home cardiac medications include aspirin 81 mg at night, Lipitor 40 mg at night, Farxiga 10 mg daily, Lasix 40 mg twice a day, Imdur 30 mg daily, metoprolol succinate 100 mg daily - Most recent echocardiogram obtained in May 2024 revealing ejection fraction 45%, moderate TR, and prosthetic aortic valve - Cardiac catheterization history: July 2024 revealing subtotally occluded LAD with no graft identified to the LAD, severe disease involving the left circumflex with patent SVG to circumflex, mild disease involving RCA, mildly elevated left-sided filling pressures. 10/14/2024 Patient examined this morning in the emergency room. Patient currently denies chest pain or pressure. He reports improvement in his shortness of breath. He remains on IV Lasix. Awaiting labs from this morning. Blood pressure stable at 111/65. PHYSICAL EXAM: VITAL SIGNS: Reviewed. GENERAL: Well-developed in no acute distress. HEENT: Head is normocephalic. Pupils are equal, round. Sclerae anicteric. Mucous membranes of the mouth are moist. Neck supple. No JVD or thyromegaly LUNGS: Respirations even and unlabored. Lungs with decreased air exchange throughout HEART: Regular rate and rhythm. S1 and S2 heard. Systolic murmur noted ABDOMEN: Soft. Nondistended. Nontender. EXTREMITIES: Normal range of motion. No clubbing or cyanosis. Peripheral pulses intact. Bilateral lower extremity edema NEUROLOGIC: Awake and alert. Oriented x 3. ASSESSMENT: Shortness of breath Acute COPD exacerbation Acute on chronic heart failure with reduced EF Coronary artery disease with previous CABG, 2009 at [facility] History of TAVR, 2017, [facility] Chronic kidney disease Minimally elevated troponin, likely secondary to poor renal clearance, no evidence of myocardial injury or ischemia Hypertension Hyperlipidemia Diabetes Obesity: BMI 35.1 PLAN: No need to repeat echocardiogram Continue current cardiac medications Continue IV Lasix 40mg Q12 hours. Awaiting kidney function from this morning Daily weights, accurate intake and output, and monitoring of kidney function Consider adding JANES/ARB if kidney function remains stable Discontinue IVF Further recommendations pending patient course Nurse practitioner note has been reviewed by physician. Signing provider agrees with the documented findings, assessment, and plan of care documented by EDITOR IN CHIEF as a scribe. Objective - Vital Signs Vital signs: Vital Signs Temp 97.4 F L 10/14/24 08:10 Pulse 56 L 10/14/24 08:45 Resp 18 10/14/24 08:10 BP 111/65 10/14/24 08:10 Pulse Ox 97 10/14/24 08:10 FiO2 Intake & Output 10/13/24 10/14/24 10/14/24 18:59 06:59 18:59 Intake Total 16 131.221 83.812 Output Total 1300 1900 Balance -1284 -1768.779 83.812 Intake: Intake, IV Titration 115.221 83.812 Amount Insulin Regular 100 unit 115.221 83.812 In Sodium Chloride 0.9% 100 ml @ Titrate IV .Q0M [facility] Rx#:[id number] Oral 16 16 Output: Urine 1300 1900 Other: # Voids 2 4 - Labs CBC & Chem 7: 10/14/24 03:58 10/14/24 03:58 Labs: Abnormal Lab Results - Last 24 Hours (Table) 10/13/24 10/13/24 10/13/24 Range/Units 04:27 11:54 16:56 MCV (80.0-100.0) fL Lymphocytes # (1.0-4.8) k/uL Sodium (137-145) mmol/L Carbon Dioxide (22-30) mmol/L BUN (9-20) mg/dL Creatinine (0.66-1.25) mg/dL Glucose (74-99) mg/dL POC Glucose (mg/dL) 386 H 524 H* (70-110) mg/dL Hemoglobin A1c (<=6.0) % Triglycerides 547.00 H (0.00-149.00) mg/dL VLDL Cholesterol, Calc 109.40 H (5.00-40.00) mg/dL HDL Cholesterol 25.90 L (40.00-60.00) mg/dL 10/13/24 10/13/24 10/13/24 Range/Units 20:09 20:10 21:26 MCV 102.7 H (80.0-100.0) fL Lymphocytes # 0.9 L (1.0-4.8) k/uL Sodium (137-145) mmol/L Carbon Dioxide (22-30) mmol/L BUN (9-20) mg/dL Creatinine (0.66-1.25) mg/dL Glucose (74-99) mg/dL POC Glucose (mg/dL) 571 H* >600 H* (70-110) mg/dL Hemoglobin A1c (<=6.0) % Triglycerides (0.00-149.00) mg/dL VLDL Cholesterol, Calc (5.00-40.00) mg/dL HDL Cholesterol (40.00-60.00) mg/dL 10/13/24 10/13/24 10/14/24 Range/Units 21:26 23:23 00:23 MCV (80.0-100.0) fL Lymphocytes # (1.0-4.8) k/uL Sodium 135 L 136 L (137-145) mmol/L Carbon Dioxide 21 L (22-30) mmol/L BUN 42 H 42 H (9-20) mg/dL Creatinine 1.67 H 1.58 H (0.66-1.25) mg/dL Glucose 586 H* 482 H (74-99) mg/dL POC Glucose (mg/dL) 519 H* (70-110) mg/dL Hemoglobin A1c (<=6.0) % Triglycerides (0.00-149.00) mg/dL VLDL Cholesterol, Calc (5.00-40.00) mg/dL HDL Cholesterol (40.00-60.00) mg/dL 10/14/24 10/14/24 10/14/24 Range/Units 00:26 01:38 02:37 MCV (80.0-100.0) fL Lymphocytes # (1.0-4.8) k/uL Sodium (137-145) mmol/L Carbon Dioxide (22-30) mmol/L BUN (9-20) mg/dL Creatinine (0.66-1.25) mg/dL Glucose (74-99) mg/dL POC Glucose (mg/dL) 444 H 442 H 353 H (70-110) mg/dL Hemoglobin A1c (<=6.0) % Triglycerides (0.00-149.00) mg/dL VLDL Cholesterol, Calc (5.00-40.00) mg/dL HDL Cholesterol (40.00-60.00) mg/dL 10/14/24 10/14/24 10/14/24 Range/Units 03:43 03:58 03:58 MCV (80.0-100.0) fL Lymphocytes # (1.0-4.8) k/uL Sodium (137-145) mmol/L Carbon Dioxide (22-30) mmol/L BUN 41 H (9-20) mg/dL Creatinine 1.55 H (0.66-1.25) mg/dL Glucose 288 H (74-99) mg/dL POC Glucose (mg/dL) 311 H (70-110) mg/dL Hemoglobin A1c 10.5 H (<=6.0) % Triglycerides (0.00-149.00) mg/dL VLDL Cholesterol, Calc (5.00-40.00) mg/dL HDL Cholesterol (40.00-60.00) mg/dL 10/14/24 10/14/24 10/14/24 Range/Units 03:58 04:39 05:37 MCV 101.7 H (80.0-100.0) fL Lymphocytes # (1.0-4.8) k/uL Sodium (137-145) mmol/L Carbon Dioxide (22-30) mmol/L BUN (9-20) mg/dL Creatinine (0.66-1.25) mg/dL Glucose (74-99) mg/dL POC Glucose (mg/dL) 316 H 243 H (70-110) mg/dL Hemoglobin A1c (<=6.0) % Triglycerides (0.00-149.00) mg/dL VLDL Cholesterol, Calc (5.00-40.00) mg/dL HDL Cholesterol (40.00-60.00) mg/dL 10/14/24 10/14/24 Range/Units 06:33 07:50 MCV (80.0-100.0) fL Lymphocytes # (1.0-4.8) k/uL Sodium (137-145) mmol/L Carbon Dioxide (22-30) mmol/L BUN (9-20) mg/dL Creatinine (0.66-1.25) mg/dL Glucose (74-99) mg/dL POC Glucose (mg/dL) 255 H 168 H (70-110) mg/dL Hemoglobin A1c (<=6.0) % Triglycerides (0.00-149.00) mg/dL VLDL Cholesterol, Calc (5.00-40.00) mg/dL HDL Cholesterol (40.00-60.00) mg/dL
[2024-10-14 09:21] LABS: Glucose,Whole Blood 200 mg/dL (70-110)
[2024-10-14] MEDS ORDERED: DEXTROSE 50% SYRINGE 50 ML IVP PRN ×2 (09:27)
[2024-10-14] MEDS: INSULIN DETEMIR (LEVEMIR) 100 UNIT/ML SYR SQ SCH (09:57)
[2024-10-14 10:02] LABS: Glucose,Whole Blood 280 mg/dL (70-110)
[2024-10-14 10:15] LABS: African American GFR (CKD) 55 (>60 ml/min/1.73 sqM); Anion Gap 11 mmol/L; Blood Urea Nitrogen 39 mg/dL (9-20); Calcium 9.1 mg/dL (8.4-10.2); Carbon Dioxide 25 mmol/L (22-30); Chloride 105 mmol/L (98-107); Glucose 217 mg/dL (74-99); Non-African American GFR(CKD) 47 (>60 ml/min/1.73 sqM); Potassium 3.7 mmol/L (3.5-5.1); Sodium 141 mmol/L (137-145)
[2024-10-14 11:33] LABS: Glucose,Whole Blood 416 mg/dL (70-110)
[2024-10-14] MEDS: INSULIN ASPART (NovoLOG) 100 UNIT/ML VIAL SQ SCH (11:37)
[2024-10-14 13:24] LABS: Glucose,Whole Blood 385 mg/dL (70-110)
--- NOTE | 2024-10-14 14:22 | P.PN ---
Subjective Progress Note Date: 10/14/24 Principal diagnosis: Shortness of breath. This is an 79-year-old gentleman with a known history of chronic obstructive pulmonary disease, former smoker, home oxygen at 3 L 27/05, diabetes mellitus, coronary artery disease with previous CABG, congestive heart failure hypertension, hyperlipidemia. He presented here to the emergency room early this morning with complaints of increasing shortness of breath and lower extremity edema. Chest x-ray reveals bibasilar atelectasis. 15.4. Platelets 185. D-dimer 0.64. Sodium 138. Potassium 4.0. Bicarb 21. BUN 38. Creatinine 1.58. Glucose 236. Troponin 0.041. proBNP 2440. Viral screen negative. He has been initiated on IV diuretics. Initiated on antibiotics. Procalcitonin pending. He is seen in consultation in the emergency department. Currently sitting up on a stretcher. Awake and alert in no acute distress. M aintaining O2 saturations in the 90s on 4 L/min per nasal cannula. He is afebrile. Hemodynamically stable. Progress note dated October 14, 2024. 79-year-old male seen in the emergency department yesterday, in consultation. The patient was in the emergency department this morning as well. The patient is feeling better. He is less short of breath. He is not back to baseline. He is on an insulin drip at 14 units an hour, and nasal O2 at 3 L. His procalcitonin level is pending. We believe that the patient has CHF exacerbation, and a mild COPD exacerbation. Laboratory data includes a sodium 141, potassium 3.7, chlorides 105, CO2 25, BUN 39, creatinine 1.40. Glucose is 385. Calcium is 9.1. The patient's procalcitonin level is normal at 0.10. Objective - Vital Signs Vital signs: Vital Signs Temp 97.9 F 10/14/24 13:57 Pulse 56 L 10/14/24 13:57 Resp 18 10/14/24 13:57 BP 125/76 10/14/24 13:57 Pulse Ox 95 10/14/24 13:57 FiO2 Intake & Output 10/13/24 10/14/24 10/14/24 18:59 06:59 18:59 Intake Total 16 131.221 83.812 Output Total 1300 1900 Balance -1284 -1768.779 83.812 Intake: Intake, IV Titration 115.221 83.812 Amount Insulin Regular 100 unit 115.221 83.812 In Sodium Chloride 0.9% 100 ml @ Titrate IV .Q0M [facility] Rx#:[id number] Oral 16 16 Output: Urine 1300 1900 Other: # Voids 2 4 - Exam No acute distress, oriented 3. No respiratory distress. The patient is currently on 3 L. HEENT examination is grossly unremarkable. Mucous membranes are moist. No oral lesions. Neck supple. Full range of motion. No adenopathy thyromegaly or neck vein distention. Cardiovascular examination reveals regular rhythm rate. S1-S2 normal. No S3 or S4. No discernible murmur noted. Lungs reveal bibasilar crackles. Upper lung sounds are clear. No rhonchi or wheezes. Breath sounds are equal bilaterally. Abdomen soft bowel sounds are heard. No masses or tenderness. Extremities are intact. No cyanosis or clubbing. 1+ edema noted. Skin is without rash or lesion. Neurologic examination is brief but nonfocal. - Labs CBC & Chem 7: 10/14/24 03:58 10/14/24 09:42 Labs: Abnormal Lab Results - Last 24 Hours (Table) 10/13/24 10/13/24 10/13/24 Range/Units 04:27 16:56 20:09 MCV (80.0-100.0) fL Lymphocytes # (1.0-4.8) k/uL Sodium (137-145) mmol/L Carbon Dioxide (22-30) mmol/L BUN (9-20) mg/dL Creatinine (0.66-1.25) mg/dL Glucose (74-99) mg/dL POC Glucose (mg/dL) 524 H* 571 H* (70-110) mg/dL Hemoglobin A1c (<=6.0) % Triglycerides 547.00 H (0.00-149.00) mg/dL VLDL Cholesterol, Calc 109.40 H (5.00-40.00) mg/dL HDL Cholesterol 25.90 L (40.00-60.00) mg/dL 10/13/24 10/13/24 10/13/24 Range/Units 20:10 21:26 21:26 MCV 102.7 H (80.0-100.0) fL Lymphocytes # 0.9 L (1.0-4.8) k/uL Sodium 135 L (137-145) mmol/L Carbon Dioxide (22-30) mmol/L BUN 42 H (9-20) mg/dL Creatinine 1.67 H (0.66-1.25) mg/dL Glucose 586 H* (74-99) mg/dL POC Glucose (mg/dL) >600 H* (70-110) mg/dL Hemoglobin A1c (<=6.0) % Triglycerides (0.00-149.00) mg/dL VLDL Cholesterol, Calc (5.00-40.00) mg/dL HDL Cholesterol (40.00-60.00) mg/dL 10/13/24 10/14/24 10/14/24 Range/Units 23:23 00:23 00:26 MCV (80.0-100.0) fL Lymphocytes # (1.0-4.8) k/uL Sodium 136 L (137-145) mmol/L Carbon Dioxide 21 L (22-30) mmol/L BUN 42 H (9-20) mg/dL Creatinine 1.58 H (0.66-1.25) mg/dL Glucose 482 H (74-99) mg/dL POC Glucose (mg/dL) 519 H* 444 H (70-110) mg/dL Hemoglobin A1c (<=6.0) % Triglycerides (0.00-149.00) mg/dL VLDL Cholesterol, Calc (5.00-40.00) mg/dL HDL Cholesterol (40.00-60.00) mg/dL 10/14/24 10/14/24 10/14/24 Range/Units 01:38 02:37 03:43 MCV (80.0-100.0) fL Lymphocytes # (1.0-4.8) k/uL Sodium (137-145) mmol/L Carbon Dioxide (22-30) mmol/L BUN (9-20) mg/dL Creatinine (0.66-1.25) mg/dL Glucose (74-99) mg/dL POC Glucose (mg/dL) 442 H 353 H 311 H (70-110) mg/dL Hemoglobin A1c (<=6.0) % Triglycerides (0.00-149.00) mg/dL VLDL Cholesterol, Calc (5.00-40.00) mg/dL HDL Cholesterol (40.00-60.00) mg/dL 10/14/24 10/14/24 10/14/24 Range/Units 03:58 03:58 03:58 MCV 101.7 H (80.0-100.0) fL Lymphocytes # (1.0-4.8) k/uL Sodium (137-145) mmol/L Carbon Dioxide (22-30) mmol/L BUN 41 H (9-20) mg/dL Creatinine 1.55 H (0.66-1.25) mg/dL Glucose 288 H (74-99) mg/dL POC Glucose (mg/dL) (70-110) mg/dL Hemoglobin A1c 10.5 H (<=6.0) % Triglycerides (0.00-149.00) mg/dL VLDL Cholesterol, Calc (5.00-40.00) mg/dL HDL Cholesterol (40.00-60.00) mg/dL 10/14/24 10/14/24 10/14/24 Range/Units 04:39 05:37 06:33 MCV (80.0-100.0) fL Lymphocytes # (1.0-4.8) k/uL Sodium (137-145) mmol/L Carbon Dioxide (22-30) mmol/L BUN (9-20) mg/dL Creatinine (0.66-1.25) mg/dL Glucose (74-99) mg/dL POC Glucose (mg/dL) 316 H 243 H 255 H (70-110) mg/dL Hemoglobin A1c (<=6.0) % Triglycerides (0.00-149.00) mg/dL VLDL Cholesterol, Calc (5.00-40.00) mg/dL HDL Cholesterol (40.00-60.00) mg/dL 10/14/24 10/14/24 10/14/24 Range/Units 07:50 09:10 09:42 MCV (80.0-100.0) fL Lymphocytes # (1.0-4.8) k/uL Sodium (137-145) mmol/L Carbon Dioxide (22-30) mmol/L BUN 39 H (9-20) mg/dL Creatinine 1.40 H (0.66-1.25) mg/dL Glucose 217 H (74-99) mg/dL POC Glucose (mg/dL) 168 H 200 H (70-110) mg/dL Hemoglobin A1c (<=6.0) % Triglycerides (0.00-149.00) mg/dL VLDL Cholesterol, Calc (5.00-40.00) mg/dL HDL Cholesterol (40.00-60.00) mg/dL 10/14/24 10/14/24 10/14/24 Range/Units 09:56 11:32 13:23 MCV (80.0-100.0) fL Lymphocytes # (1.0-4.8) k/uL Sodium (137-145) mmol/L Carbon Dioxide (22-30) mmol/L BUN (9-20) mg/dL Creatinine (0.66-1.25) mg/dL Glucose (74-99) mg/dL POC Glucose (mg/dL) 280 H 416 H 385 H (70-110) mg/dL Hemoglobin A1c (<=6.0) % Triglycerides (0.00-149.00) mg/dL VLDL Cholesterol, Calc (5.00-40.00) mg/dL HDL Cholesterol (40.00-60.00) mg/dL Assessment and Plan Assessment: Acute on chronic hypoxemic respiratory failure secondary to acute exacerbation of systolic congestive heart failure. Acute kidney injury. Troponin leak. Oxygen dependent chronic obstructive pulmonary disease. Former smoker. Coronary artery disease with previous coronary artery bypass grafting. History of aortic stenosis with previous TAVR. Diabetes mellitus, type II. Hypertension. Hyperlipidemia. History of gout. Moderate pulmonary hypertension. Plan: Plan dated October 14, 2024. The patient continues on appropriate medications. Antibiotics can be discontinued. Labs, x-rays, and medications are reviewed. Clinically, the joceline ent appears to be much better. He is sitting on the side of the bed. He remains in the ER, room 18. The patient is on an insulin drip at 14 units an hour, and nasal O2 at 3 L. No additional recommendations are made. We will continue to follow. Time with Patient: Less than 30
[2024-10-14 16:30] LABS: Glucose,Whole Blood 380 mg/dL (70-110)
[2024-10-14 20:47] LABS: Glucose,Whole Blood 379 mg/dL (70-110)
[2024-10-14] MEDS: PREGABALIN 75 MG CAP PO SCH (21:19)
[2024-10-15 06:33] LABS: Glucose,Whole Blood 209 mg/dL (70-110)
[2024-10-15 09:04] LABS: BUN/Creat Ratio 24.79 Ratio (12.00-20.00); Blood Urea Nitrogen 34.7 mg/dL (9.0-27.0); Calcium 8.9 mg/dL (8.7-10.3); Carbon Dioxide 25.1 mmol/L (21.6-31.8); Chloride 103 mmol/L (96-109); Glucose 246 mg/dL (70-110); Potassium 4.1 mmol/L (3.5-5.5); Sodium 141 mmol/L (135-145)
[2024-10-15] MEDS: PREGABALIN 75 MG CAP PO SCH (09:46)
--- NOTE | 2024-10-15 11:34 | XR ---
EXAMINATION TYPE: XR chest 1V portable DATE OF EXAM: 10/15/2024 COMPARISON: 10/13/2024 CLINICAL INDICATION: Male, 79 years old with history of CHF; TECHNIQUE: Single frontal view of the chest is obtained. FINDINGS: There is been prior CABG surgery. There is persistent moderate cardiomegaly. There is mild pulmonary vascular congestion which is essen tially stable compared to prior study. No pneumothorax or large pleural effusion. The osseous structu res are intact. IMPRESSION: Findings consistent with stable mild CHF. [facility], , 10/15/2024 11:32 AM
[2024-10-15 11:45] LABS: Glucose,Whole Blood 238 mg/dL (70-110)
--- NOTE | 2024-10-15 13:24 | P.PN ---
Subjective Progress Note Date: 10/15/24 This is an 79-year-old gentleman with a known history of chronic obstructive pulmonary disease, former smoker, home oxygen at 3 L 27/05, diabetes mellitus, coronary artery disease with previous CABG, congestive heart failure hypertension, hyperlipidemia. He presented here to the emergency room early this morning with complaints of increasing shortness of breath and lower extremity edema. Chest x-ray reveals bibasilar atelectasis. 15.4. Platelets 185. D-dimer 0.64. Sodium 138. Potassium 4.0. Bicarb 21. BUN 38. Creatinine 1.58. Glucose 236. Troponin 0.041. proBNP 2440. Viral screen negative. He has been initiated on IV diuretics. Initiated on antibiotics. Procalcitonin pending. He is seen in consultation in the emergency department. Currently sitting up on a stretcher. Awake and alert in no acute distress. Maintaining O2 saturations in the 90s on 4 L/min per nasal cannula. He is afebrile. Hemodynamically stable. Progress note dated October 14, 2024. 79-year-old male seen in the emergency department yesterday, in consultation. The patient was in the emergency department this morning as well. The patient is feeling better. He is less short of breath. He is not back to baseline. He is on an insulin drip at 14 units an hour, and nasal O2 at 3 L. His procalciton in level is pending. We believe that the patient has CHF exacerbation, and a mild COPD exacerbation. Laboratory data includes a sodium 141, potassium 3.7, chlorides 105, CO2 25, BUN 39, creatinine 1.40. Glucose is 385. Calcium is 9.1. The patient's procalcitonin level is normal at 0.10. The patient is seen today October 15, 2024 in follow-up on the regular medical floor. He is currently sitting up in bed. Awake and alert in no acute distress. Breathing better today compared to yesterday. Not quite back to his baseline. He is maintaining O2 saturations in the 90s on 3 L/min per nasal cannula. No IV fluids. He remains on Lasix 40 mg IV every 12 hours. X-ray continues to show stable mild congestive heart failure. Sodium 141. Potassium 4.1. Bicarb 25. BUN 35. Creatinine 1.4. Glucose 246. Hemoglobin A1c 10.7%. He remains on bronchodilators and steroids. Objective - Vital Signs Vital signs: Vital Signs Temp 97.7 F 10/15/24 07:31 Pulse 75 10/15/24 09:44 Resp 16 10/15/24 08:00 BP 138/78 10/15/24 07:31 Pulse Ox 99 10/15/24 07:31 FiO2 Intake & Output 10/14/24 10/15/24 10/15/24 18:59 06:59 18:59 Intake Total 323.812 Balance 323.812 Weight 114.305 kg 117 kg Intake: Intake, IV Titration 83.812 Amount Insulin Regular 100 unit 83.812 In Sodium Chloride 0.9% 100 ml @ Titrate IV .Q0M [facility] Rx#:[id number] Oral 240 Other: # Voids 2 - Exam GENERAL EXAM: Alert, pleasant 79-year-old male, obese, sitting up at the bedside, on 3 L nasal cannula, fairly comfortable in no apparent distress. HEAD: Normocephalic. EYES: Normal reaction of pupils, equal size. NOSE: Clear with pink turbinates. THROAT: No erythema or exudates. NECK: No masses, no JVD. CHEST: No chest wall deformity. LUNGS: Equal air entry with crackles in the bilateral bases. CVS: S1 and S2 normal with no audible murmur, regular rhythm. ABDOMEN: No hepatosplenomegaly, normal bowel sounds, no guarding or rigidity. SPINE: No scoliosis or deformity SKIN: No rashes CENTRAL NERVOUS SYSTEM: No focal deficits, tone is normal in all 4 extremities. EXTREMITIES: There is 1+ peripheral edema. No clubbing, no cyanosis. Peripheral pulses are intact. - Labs CBC & Chem 7: 10/14/24 03:58 10/15/24 03:32 Labs: Abnormal Lab Results - Last 24 Hours (Table) 10/14/24 10/14/24 10/14/24 Range/Units 13:23 16:28 20:46 Anion Gap (4.00-12.00) mmol/L BUN (9.0-27.0) mg/dL Est GFR (CKD-EPI) (>=60) BUN/Creatinine Ratio (12.00-20.00) Ratio Glucose (70-110) mg/dL POC Glucose (mg/dL) 385 H 380 H 379 H (70-110) mg/dL Hemoglobin A1c (<=6.0) % 10/15/24 10/15/24 10/15/24 Range/Units 03:32 03:32 06:32 Anion Gap 12.90 H (4.00-12.00) mmol/L BUN 34.7 H (9.0-27.0) mg/dL Est GFR (CKD-EPI) 51 L (>=60) BUN/Creatinine Ratio 24.79 H (12.00-20.00) Ratio Glucose 246 H (70-110) mg/dL POC Glucose (mg/dL) 209 H (70-110) mg/dL Hemoglobin A1c 10.7 H (<=6.0) % 10/15/24 Range/Units 11:44 Anion Gap (4.00-12.00) mmol/L BUN (9.0-27.0) mg/dL Est GFR (CKD-EPI) (>=60) BUN/Creatinine Ratio (12.00-20.00) Ratio Glucose (70-110) mg/dL POC Glucose (mg/dL) 238 H (70-110) mg/dL Hemoglobin A1c (<=6.0) % Assessment and Plan Assessment: Acute on chronic hypoxemic respiratory failure secondary to acute exacerbation of systolic congestive heart failure Acute kidney injury Troponin leak Oxygen dependent chronic obstructive pulmonary disease Former smoker Coronary artery disease with previous coronary artery bypass grafting History of aortic stenosis with previous TAVR Diabetes mellitus, type II Hypertension Hyperlipidemia History of gout Moderate pulmonary hypertension Plan: The patient was seen and evaluated Chest x-ray, labs and medications reviewed Continues with mild congestive heart failure Continue IV diuretics Titrate the FiO2 as tolerated Continue bronchodilators, prednisone taper Procalcitonin was negative Antibiotics discontinued Probable discharge in a.m. This patient was seen independently by the pulmonary nurse practitioner addressing pulmonary issues I have personally seen and examined the patient, performed the documentation and the assessment and plan as written. Number of minutes spent on the visit: 25 Dictation was produced using [employer] dictation software. Please excuse any grammatical, word or spelling errors.
--- NOTE | 2024-10-15 13:46 | P.PN ---
Subjective This is a pleasant 79 years old male with past medical history of multiple medical problems as below including COPD and for follow-up with Dr. Bell and heart failure and he follow-up with Dr. Peterson. Coronary artery disease status post CABG and stent placement. Chronic kidney disease stage III. Chronic hypoxic respiratory failure on 3 L oxygen via nasal cannula Patient presents because of worsening dyspnea over 3 to 4 days. He has chronic cough with little phlegm. He denies chest pain No overt GI/ symptoms. He has mild headache but no dizziness weakness or numbness He denies smoking alcohol or illicit drugs. He is afebrile. He is saturating 96% on 4 L oxygen via nasal cannula He has unremarkable CBC, liver enzymes. Creatinine is elevated at baseline 1.5. Recently his 1.4-1.5. INR 0.9. Mildly elevated troponin 0.04 proBNP is high at 2440 D-dimer 0.64 Ejection fraction is 45% on echo from 05/14/2029 10/14/2024 Patient dyspnea is better He has minimal distal capitation but 3+ bilateral pitting leg edema. He sitting up at the bedside. He drinks more water, patient consult with fluid restriction. However I am not sure if he is going to follow-up the recommendation. Risk and benefit explained No chest pain He is at 2 L oxygen via nasal cannula saturating 97%. At home he uses 3 L. Patient confirms he has oxygen at home. Patient currently on IV Lasix 40 mg twice daily. Also he is on prednisone 40 mg for possible COPD exacerbation Patient has chronic cough. No recent worsening. We can discontinue Zithromax. 10/15 Patient feels better, breathing is better No chest pain Creatinine 1.4 Patient wants to is on the fluid restriction we will go down from 1500 up to 1800 mL, patient informed and he agrees Pulmonary team on the case and possible may be discharge tomorrow morning Objective - Vital Signs Vital signs: Vital Signs Temp 97.7 F 10/15/24 07:31 Pulse 75 10/15/24 09:44 Resp 16 10/15/24 08:00 BP 138/78 10/15/24 07:31 Pulse Ox 99 10/15/24 07:31 FiO2 Intake & Output 10/14/24 10/15/24 10/15/24 18:59 06:59 18:59 Intake Total 323.812 Balance 323.812 Weight 114.305 kg 117 kg Intake: Intake, IV Titration 83.812 Amount Insulin Regular 100 unit 83.812 In Sodium Chloride 0.9% 100 ml @ Titrate IV .Q0M [facility] Rx#:[id number] Oral 240 Other: # Voids 2 - Exam -GENERAL: The patient is alert and oriented x3, not in any acute distress. Well developed, well nourished. Obese HEENT: Pupils are round and equally reacting to light. EOMI. No scleral icterus. No conjunctival pallor. Normocephalic, atraumatic. No pharyngeal erythema. No thyromegaly. CARDIOVASCULAR: S1 and S2 present. No murmurs, rubs, or gallops. PULMONARY: Chest is clear to auscultation, no wheezing , no crackles. ABDOMEN: Soft, nontender, nondistended, normoactive bowel sounds. No palpable organomegaly. MUSCULOSKELETAL: No joint swelling or deformity. -EXTREMITIES: No cyanosis, clubbing, 3+ bilateral pitting leg edema NEUROLOGICAL: Gross neurological examination did not reveal any focal deficits. SKIN: No rashes. no petechiae. - Labs CBC & Chem 7: 10/14/24 03:58 10/15/24 03:32 Labs: Abnormal Lab Results - Last 24 Hours (Table) 10/14/24 10/14/24 10/15/24 Range/Units 16:28 20:46 03:32 Anion Gap (4.00-12.00) mmol/L BUN (9.0-27.0) mg/dL Est GFR (CKD-EPI) (>=60) BUN/Creatinine Ratio (12.00-20.00) Ratio Glucose (70-110) mg/dL POC Glucose (mg/dL) 380 H 379 H (70-110) mg/dL Hemoglobin A1c 10.7 H (<=6.0) % 10/15/24 10/15/24 10/15/24 Range/Units 03:32 06:32 11:44 Anion Gap 12.90 H (4.00-12.00) mmol/L BUN 34.7 H (9.0-27.0) mg/dL Est GFR (CKD-EPI) 51 L (>=60) BUN/Creatinine Ratio 24.79 H (12.00-20.00) Ratio Glucose 246 H (70-110) mg/dL POC Glucose (mg/dL) 209 H 238 H (70-110) mg/dL Hemoglobin A1c (<=6.0) % Assessment and Plan Assessment: Acute on chronic heart failure Mildly elevated troponin could be secondary to heart failure and kidney disease Possible mild COPD acute exacerbation Coronary artery disease status post CABG and stent placement. Chronic kidney disease stage III. Chronic hypoxic respiratory failure on 3 L oxygen via nasal cannula Obesity with BMI 35.1 Plan: Patient was started on IV Lasix 40 mg twice daily Also he was started on prednisone for 5 days Discontinue with Zithromax. Add fluid restriction Continue with bronchodilator. Cardiology and pulmonary consult Labs and medication were reviewed.. Continue same treatment. Continue with symptomatic treatment. Resume home medication. Monitor labs and vitals. DVT a nd GI prophylaxis. Further recommendations as per clinical course of the patient DVT prophylaxis: Sc heparin GI Prophylaxis: Pepcid PT/OT: Pending Prognosis is guarded
[2024-10-15 14:17] VITALS: BMI 35.9
[2024-10-15] MEDS: ACETAMINOPHEN TAB 325 MG TAB PO STA (15:35)
[2024-10-15 16:31] LABS: Glucose,Whole Blood 352 mg/dL (70-110)
[2024-10-15 20:28] LABS: Glucose,Whole Blood 296 mg/dL (70-110)
[2024-10-15] MEDS: ACETAMINOPHEN TAB 325 MG TAB PO PRN (22:04)
[2024-10-16 06:11] LABS: Glucose,Whole Blood 175 mg/dL (70-110)
[2024-10-16 08:52] LABS: BUN/Creat Ratio 27.13 Ratio (12.00-20.00); Blood Urea Nitrogen 40.7 mg/dL (9.0-27.0); Calcium 8.8 mg/dL (8.7-10.3); Carbon Dioxide 23.9 mmol/L (21.6-31.8); Chloride 105 mmol/L (96-109); Glucose 187 mg/dL (70-110); Potassium 4.4 mmol/L (3.5-5.5); Sodium 142 mmol/L (135-145)
[2024-10-16 11:25] LABS: Glucose,Whole Blood 218 mg/dL (70-110)
--- NOTE | 2024-10-16 12:34 | P.PN ---
Subjective This is a pleasant 79 years old male with past medical history of multiple medical problems as below including COPD and for follow-up with Dr. Bell and heart failure and he follow-up with Dr. Peterson. Coronary artery disease status post CABG and stent placement. Chronic kidney disease stage III. Chronic hypoxic respiratory failure on 3 L oxygen via nasal cannula Patient presents because of worsening dyspnea over 3 to 4 days. He has chronic cough with little phlegm. He denies chest pain No overt GI/ symptoms. He has mild headache but no dizziness weakness or numbness He denies smoking alcohol or illicit drugs. He is afebrile. He is saturating 96% on 4 L oxygen via nasal cannula He has unremarkable CBC, liver enzymes. Creatinine is elevated at baseline 1.5. Recently his 1.4-1.5. INR 0.9. Mildly elevated troponin 0.04 proBNP is high at 2440 D-dimer 0.64 Ejection fraction is 45% on echo from 05/14/2029 10/14/2024 Patient dyspnea is better He has minimal distal capitation but 3+ bilateral pitting leg edema. He sitting up at the bedside. He drinks more water, patient consult with fluid restriction. However I am not sure if he is going to follow-up the recommendation. Risk and benefit explained No chest pain He is at 2 L oxygen via nasal cannula saturating 97%. At home he uses 3 L. Patient confirms he has oxygen at home. Patient currently on IV Lasix 40 mg twice daily. Also he is on prednisone 40 mg for possible COPD exacerbation Patient has chronic cough. No recent worsening. We can discontinue Zithromax. 10/15 Patient feels better, breathing is better No chest pain Creatinine 1.4 Patient wants to is on the fluid restriction we will go down from 1500 up to 1800 mL, patient informed and he agrees Pulmonary team on the case and possible may be discharge tomorrow morning 10/16 Patient breathing is not worse He looks pleasant and happy with the progress he making. Patient request to stay 1 more day [facility] recommend to keep diuretics and monitoring since he has significant leg swelling Patient is happy with the level of fluid restriction now. Patient was counseled to keep fluid restriction upon discharge and he agrees. No other new complaint Objective - Vital Signs Vital signs: Vital Signs Temp 98.8 F 10/16/24 06:58 Pulse 49 L 10/16/24 08:00 Resp 16 10/16/24 08:00 BP 120/72 10/16/24 06:58 Pulse Ox 96 10/16/24 06:58 FiO2 Intake & Output 10/15/24 10/16/24 10/16/24 18:59 06:59 18:59 Weight 117 kg 116.9 kg - Exam -GENERAL: The patient is alert and oriented x3, not in any acute distress. Well developed, well nourished. Obese HEENT: Pupils are round and equally reacting to light. EOMI. No scleral icterus. No conjunctival pallor. Normocephalic, atraumatic. No pharyngeal erythema. No thyromegaly. CARDIOVASCULAR: S1 and S2 present. No murmurs, rubs, or gallops. PULMONARY: Chest is clear to auscultation, no wheezing , no crackles. ABDOMEN: Soft, nontender, nondistended, normoactive bowel sounds. No palpable organomegaly. MUSCULOSKELETAL: No joint swelling or deformity. -EXTREMITIES: No cyanosis, clubbing, 3+ bilateral pitting leg edema NEUROLOGICAL: Gross neurological examination did not reveal any focal deficits. SKIN: No rashes. no petechiae. - Labs CBC & Chem 7: 10/14/24 03:58 10/16/24 04:34 Labs: Abnormal Lab Results - Last 24 Hours (Table) 10/15/24 10/15/24 10/16/24 Range/Units 16:27 20:27 04:34 Anion Gap 13.10 H (4.00-12.00) mmol/L BUN 40.7 H (9.0-27.0) mg/dL Est GFR (CKD-EPI) 47 L (>=60) BUN/Creatinine Ratio 27.13 H (12.00-20.00) Ratio Glucose 187 H (70-110) mg/dL POC Glucose (mg/dL) 352 H 296 H (70-110) mg/dL 10/16/24 10/16/24 Range/Units 06:09 11:24 Anion Gap (4.00-12.00) mmol/L BUN (9.0-27.0) mg/dL Est GFR (CKD-EPI) (>=60) BUN/Creatinine Ratio (12.00-20.00) Ratio Glucose (70-110) mg/dL POC Glucose (mg/dL) 175 H 218 H (70-110) mg/dL Assessment and Plan Assessment: Acute on chronic heart failure Mildly elevated troponin could be secondary to heart failure and kidney disease Possible mild COPD acute exacerbation Coronary artery disease status post CABG and stent placement. Chronic kidney disease stage III. Chronic hypoxic respiratory failure on 3 L oxygen via nasal cannula Obesity with BMI 35.1 Plan: Patient was started on IV Lasix 40 mg twice daily Also he was started on prednisone for 5 days Discontinue with Zithromax. Add fluid restriction Continue with bronchodilator. Cardiology and pulmonary consult Labs and medication were reviewed.. Continue same treatment. Continue with symptomatic treatment. Resume home medication. Monitor labs and vitals. DVT and GI prophylaxis. Further recommendations as per clinical course of the patient DVT prophylaxis: Sc heparin GI Prophylaxis: Pepcid PT/OT: Pending Prognosis is guarded
--- NOTE | 2024-10-16 12:54 | P.PN ---
Subjective Progress Note Date: 10/16/24 HISTORY OF PRESENT ILLNESS: This is a 79-year-old male with a past medical history significant for coronary artery disease with previous CABG, valvular heart disease status post TAVR, congestive heart failure, cardiomyopathy, hypertension, hyperlipidemia, diabetes, and chronic kidney disease. Patient follows in the office with Dr. Gambino. We have been asked to see the patient in consultation for CHF. Patient examined at the bedside in the ER. Patient presented to the ER due to a chief complaint of SOB. He states hes been feeling SOB for about a week. Denies chest pain or pressure. Denies fever or chills. Patient was found to be in acute CHF and was started on IV Lasix. Patient states he has not been using his inhalers as he cannot afford them. DIAGNOSTICS: - EKG reveals sinus mechanism with right bundle branch block. IVCD. - Chest xray persistent bibasilar atelectasis and less likely pneumonia - Laboratory data: WBC 9.8. Hemoglobin 15.4. Platelet count 185. D-dimer 0.64. Sodium 138. Potassium 4.0. BUN 38. Creatinine 1.58. Troponin 0.041. proBNP 2440. - Current home cardiac medications include aspirin 81 mg at night, Lipitor 40 mg at night, Farxiga 10 mg daily, Lasix 40 mg twice a day, Imdur 30 mg daily, metoprolol succinate 100 mg daily - Most recent echocardiogram obtained in May 2024 revealing ejection fraction 45%, moderate TR, and prosthetic aortic valve - Cardiac catheterization history: July 2024 revealing subtotally occluded LAD with no graft identified to the LAD, severe disease involving the left circumflex with patent SVG to circumflex, mild disease involving RCA, mildly elevated left-sided filling pressures. 10/14/2024 Patient examined this morning in the emergency room. Patient currently denies chest pain or pressure. He reports improvement in his shortness of breath. He remains on IV Lasix. Awaiting labs from this morning. Blood pressure stable at 111/65. 10/16/2024 Patient seen and examined. Patient has been maintained on IV Lasix 40 mg every 12 hours. Lower extremity edema is improving but still present. Shortness of breath is improved. Patient states that his breathing is much improved. Chest x-ray performed on 10/15 revealed stable mild CHF. Blood pressure 120/72, heart rate 49, pulse ox 96% on 3 L nasal cannula. Repeat blood work reveals BUN 40 creatinine 1.5. PHYSICAL EXAM: VITAL SIGNS: Reviewed. GENERAL: Well-developed in no acute distress. HEENT: Head is normocephalic. Pupils are equal, round. Sclerae anicteric. Mucous membranes of the mouth are moist. Neck supple. No JVD or thyromegaly LUNGS: Respirations even and unlabored. Lungs with decreased air exchange throughout HEART: Regular rate and rhythm. S1 and S2 heard. Systolic murmur noted ABDOMEN: Soft. Nondistended. Nontender. EXTREMITIES: No clubbing or cyanosis. Peripheral pulses intact. Bilateral lower extremity edema NEUROLOGIC: Awake and alert. Oriented x 3. ASSESSMENT: Shortness of breath Acute COPD exacerbation Acute on chronic heart failure with reduced EF Coronary artery disease with previous CABG, 2008 at [facility] History of TAVR, 2017, [facility] Chronic kidney disease Minimally elevated troponin, likely secondary to poor renal clearance, no evidence of myocardial injury or ischemia Hypertension Hyperlipidemia Diabetes Obesity: BMI 35.1 PLAN: No need to repeat echocardiogram Continue current cardiac medications Continue IV Lasix 40mg Q12 hours and and 1 dose of Zaroxolyn today. Tomorrow transition IV Lasix to oral Daily weights, accurate intake and output, and monitoring of kidney function Consider adding JANES/ARB if kidney function remains stable Further recommendations pending patient course Nurse practitioner note has been reviewed by physician. Signing provider agrees with the documented findings, assessment, and plan of care documented by [employer] as a scribe. Objective - Vital Signs Vital signs: Vital Signs Temp 98.8 F 10/16/24 06:58 Pulse 49 L 10/16/24 06:58 Resp 16 10/16/24 06:58 BP 120/72 10/16/24 06:58 Pulse Ox 96 10/16/24 06:58 FiO2 Intake & Output 10/15/24 10/16/24 10/16/24 18:59 06:59 18:59 Weight 117 kg 116.9 kg - Labs CBC & Chem 7: 10/14/24 03:58 10/16/24 04:34 Labs: Abnormal Lab Results - Last 24 Hours (Table) 10/15/24 10/15/24 10/15/24 Range/Units 11:44 16:27 20:27 Anion Gap (4.00-12.00) mmol/L BUN (9.0-27.0) mg/dL Est GFR (CKD-EPI) (>=60) BUN/Creatinine Ratio (12.00-20.00) Ratio Glucose (70-110) mg/dL POC Glucose (mg/dL) 238 H 352 H 296 H (70-110) mg/dL 10/16/24 10/16/24 Range/Units 04:34 06:09 Anion Gap 13.10 H (4.00-12.00) mmol/L BUN 40.7 H (9.0-27.0) mg/dL Est GFR (CKD-EPI) 47 L (>=60) BUN/Creatinine Ratio 27.13 H (12.00-20.00) Ratio Glucose 187 H (70-110) mg/dL POC Glucose (mg/dL) 175 H (70-110) mg/dL
--- NOTE | 2024-10-16 13:49 | P.PN ---
Subjective Progress Note Date: 10/16/24 This is an 79-year-old gentleman with a known history of chronic obstructive pulmonary disease, former smoker, home oxygen at 3 L 27/05, diabetes mellitus, coronary artery disease with previous CABG, congestive heart failure hypertension, hyperlipidemia. He presented here to the emergency room early this morning with complaints of increasing shortness of breath and lower extremity edema. Chest x-ray reveals bibasilar atelectasis. 15.4. Platelets 185. D-dimer 0.64. Sodium 138. Potassium 4.0. Bicarb 21. BUN 38. Creatinine 1.58. Glucose 236. Troponin 0.041. proBNP 2440. Viral screen negative. He has been initiated on IV diuretics. Initiated on antibiotics. Procalcitonin pending. He is seen in consultation in the emergency department. Currently sitting up on a stretcher. Awake and alert in no acute distress. Maintaining O2 saturations in the 90s on 4 L/min per nasal cannula. He is afebrile. Hemodynamically stable. Progress note dated October 14, 2024. 79-year-old male seen in the emergency department yesterday, in consultation. The patient was in the emergency department this morning as well. The patient is feeling better. He is less short of breath. He is not back to baseline. He is on an insulin drip at 14 units an hour, and nasal O2 at 3 L. His procalciton in level is pending. We believe that the patient has CHF exacerbation, and a mild COPD exacerbation. Laboratory data includes a sodium 141, potassium 3.7, chlorides 105, CO2 25, BUN 39, creatinine 1.40. Glucose is 385. Calcium is 9.1. The patient's procalcitonin level is normal at 0.10. The patient is seen today October 15, 2024 in follow-up on the regular medical floor. He is currently sitting up in bed. Awake and alert in no acute distress. Breathing better today compared to yesterday. Not quite back to his baseline. He is maintaining O2 saturations in the 90s on 3 L/min per nasal cannula. No IV fluids. He remains on Lasix 40 mg IV every 12 hours. X-ray continues to show stable mild congestive heart failure. Sodium 141. Potassium 4.1. Bicarb 25. BUN 35. Creatinine 1.4. Glucose 246. Hemoglobin A1c 10.7%. He remains on bronchodilators and steroids. The patient is seen today October 16, 2024 in follow-up on the regular medical floor. He is currently sitting up at the bedside. Awake and alert in no acute distress. Denies any worsening shortness of breath, cough or congestion. Maintaining good O2 saturations in the upper 90s on 3 L nasal cannula. Afebrile . Hemodynamically stable. Sodium 142. Potassium 4.4. Bicarb 24. BUN 41. Creatinine 1.5. Glucose 187. He remains on Lasix 40 mg IV every 12 hours. Continued on bronchodilators and steroids. Objective - Vital Signs Vital signs: Vital Signs Temp 98.8 F 10/16/24 06:58 Pulse 49 L 10/16/24 08:00 Resp 16 10/16/24 08:00 BP 120/72 10/16/24 06:58 Pulse Ox 96 10/16/24 06:58 FiO2 Intake & Output 10/15/24 10/16/24 10/16/24 18:59 06:59 18:59 Weight 117 kg 116.9 kg - Exam GENERAL EXAM: Alert, 79-year-old male, obese, on 3 L nasal cannula, comfortable in no apparent distress. HEAD: Normocephalic. EYES: Normal reaction of pupils, equal size. NOSE: Clear with pink turbinates. THROAT: No erythema or exudates. NECK: No masses, no JVD. CHEST: No chest wall deformity. LUNGS: Equal air entry with crackles in the bilateral bases. CVS: S1 and S2 normal with no audible murmur, regular rhythm. ABDOMEN: No hepatosplenomegaly, normal bowel sounds, no guarding or rigidity. SPINE: No scoliosis or deformity SKIN: No rashes CENTRAL NERVOUS SYSTEM: No focal deficits, tone is normal in all 4 extremities. EXTREMITIES: There is 1+ peripheral edema. No clubbing, no cyanosis. Peripheral pulses are intact. - Labs CBC & Chem 7: 10/14/24 03:58 10/16/24 04:34 Labs: Abnormal Lab Results - Last 24 Hours (Table) 10/15/24 10/15/24 10/16/24 Range/Units 16:27 20:27 04:34 Anion Gap 13.10 H (4.00-12.00) mmol/L BUN 40.7 H (9.0-27.0) mg/dL Est GFR (CKD-EPI) 47 L (>=60) BUN/Creatinine Ratio 27.13 H (12.00-20.00) Ratio Glucose 187 H (70-110) mg/dL POC Glucose (mg/dL) 352 H 296 H (70-110) mg/dL 10/16/24 10/16/24 Range/Units 06:09 11:24 Anion Gap (4.00-12.00) mmol/L BUN (9.0-27.0) mg/dL Est GFR (CKD-EPI) (>=60) BUN/Creatinine Ratio (12.00-20.00) Ratio Glucose (70-110) mg/dL POC Glucose (mg/dL) 175 H 218 H (70-110) mg/dL Assessment and Plan Assessment: Acute on chronic hypoxemic respiratory failure secondary to acute exacerbation of systolic congestive heart failure Acute kidney injury Troponin leak Acute exacerbation of oxygen dependent chronic obstructive pulmonary disease Former smoker Coronary artery disease with previous coronary artery bypass grafting History of aortic stenosis with previous TAVR Diabetes mellitus, type II Hypertension Hyperlipidemia History of gout Moderate pulmonary hypertension Plan: The patient was seen and evaluated Labs and medications reviewed Transition to oral diuretics Titrate the FiO2 as tolerated Continue bronchodilators, prednisone taper Not quite back to his baseline This patient was seen independently by the pulmonary nurse practitioner addressing pulmonary issues I have personally seen and examined the patient, performed the documentation and the assessment and plan as written. Number of minutes spent on the visit: 23 Dictation was produced using [employer] dictation software. Please excuse any grammatical, word or spelling errors.
[2024-10-16 16:16] LABS: Glucose,Whole Blood 315 mg/dL (70-110)
[2024-10-16] MEDS: FUROSEMIDE 40 MG TAB PO SCH (17:47)
[2024-10-16] MEDS: metOLazone 5 MG TAB PO SCH (17:47)
[2024-10-16 20:42] LABS: Glucose,Whole Blood 415 mg/dL (70-110)
[2024-10-16] MEDS: INSULIN DETEMIR (LEVEMIR) 100 UNIT/ML SYR SQ ONE (21:59)
[2024-10-17 06:27] LABS: Glucose,Whole Blood 195 mg/dL (70-110)
--- NOTE | 2024-10-17 07:55 | P.PN ---
Subjective Progress Note Date: 10/17/24 Principal diagnosis: Shortness of breath. This is an 79-year-old gentleman with a known history of chronic obstructive pulmonary disease, former smoker, home oxygen at 3 L 27/05, diabetes mellitus, coronary artery disease with previous CABG, congestive heart failure hypertension, hyperlipidemia. He presented here to the emergency room early this morning with complaints of increasing shortness of breath and lower extremity edema. Chest x-ray reveals bibasilar atelectasis. 15.4. Platelets 185. D-dimer 0.64. Sodium 138. Potassium 4.0. Bicarb 21. BUN 38. Creatinine 1.58. Glucose 236. Troponin 0.041. proBNP 2440. Viral screen negative. He has been initiated on IV diuretics. Initiated on antibiotics. Procalcitonin pending. He is seen in consultation in the emergency department. Currently sitting up on a stretcher. Awake and alert in no acute distress. M aintaining O2 saturations in the 90s on 4 L/min per nasal cannula. He is afebrile. Hemodynamically stable. Progress note dated October 14, 2024. 79-year-old male seen in the emergency department yesterday, in consultation. The patient was in the emergency department this morning as well. The patient is feeling better. He is less short of breath. He is not back to baseline. He is on an insulin drip at 14 units an hour, and nasal O2 at 3 L. His procalcitonin level is pending. We believe that the patient has CHF exacerbation, and a mild COPD exacerbation. Laboratory data includes a sodium 141, potassium 3.7, chlorides 105, CO2 25, BUN 39, creatinine 1.40. Glucose is 385. Calcium is 9.1. The patient's procalcitonin level is normal at 0.10. The patient is seen today October 15, 2024 in follow-up on the regular medical floor. He is currently sitting up in bed. Awake and alert in no acute distress. Breathing better today compared to yesterday. Not quite back to his baseline. He is maintaining O2 saturations in the 90s on 3 L/min per nasal cannula. No IV fluids. He remains on Lasix 40 mg IV every 12 hours. X-ray continues to show stable mild congestive heart failure. Sodium 141. Potassium 4.1. Bicarb 25. BUN 35. Creatinine 1.4. Glucose 246. Hemoglobin A1c 10.7%. He remains on bronchodilators and steroids. The patient is seen today October 16, 2024 in follow-up on the regular medical floor. He is currently sitting up at the bedside. Awake and alert in no acute distress. Denies any worsening shortness of breath, cough or congestion. Maintaining good O2 saturations in the upper 90s on 3 L nasal cannula. Afebrile. Hemodynamically stable. Sodium 142. Potassium 4.4. Bicarb 24. BUN 41. Creatinine 1.5. Glucose 187. He remains on Lasix 40 mg IV every 12 hours. Continued on bronchodilators and steroids. Progress note dated October 17, 2024. 80-year-old male who was initially seen in the emergency department, for shortness of breath, secondary to CHF. He is doing much better. He is on 3 L. He is not receiving any IV fluids. He still has some mild lower extremity edema. No new labs today other than a glucose of 195. Objective - Vital Signs Vital signs: Vital Signs Temp 97.4 F L 10/17/24 01:00 Pulse 53 L 10/17/24 01:00 Resp 15 10/17/24 01:00 BP 110/54 10/17/24 01:00 Pulse Ox 96 10/17/24 01:00 FiO2 Intake & Output 10/16/24 10/17/24 10/17/24 18:59 06:59 18:59 Weight 113.9 kg Other: # Voids 4 - Exam No acute distress, oriented 3. No respiratory distress. The patient is currently on 3 L. HEENT examination is grossly unremarkable. Mucous membranes are moist. No oral lesions. Neck supple. Full range of motion. No adenopathy thyromegaly or neck vein distention. Cardiovascular examination reveals regular rhythm rate. S1-S2 normal. No S3 or S4. No discernible murmur noted. Lungs reveal mostly clear breath sounds. Minimal residual crackles are noted. No wheezes or rhonchi. Breath sounds are equal bilaterally. Abdomen soft bowel sounds are heard. No masses or tenderness. Extremities are intact. No cyanosis or clubbing. 1+ edema noted. Skin is without rash or lesion. Neurologic examination is brief but nonfocal. - Labs CBC & Chem 7: 10/14/24 03:58 10/16/24 04:34 Labs: Abnormal Lab Results - Last 24 Hours (Table) 10/16/24 10/16/24 10/16/24 Range/Units 04:34 11:24 16:15 Anion Gap 13.10 H (4.00-12.00) mmol/L BUN 40.7 H (9.0-27.0) mg/dL Est GFR (CKD-EPI) 47 L (>=60) BUN/Creatinine Ratio 27.13 H (12.00-20.00) Ratio Glucose 187 H (70-110) mg/dL POC Glucose (mg/dL) 218 H 315 H (70-110) mg/dL 10/16/24 10/17/24 Range/Units 20:40 06:26 Anion Gap (4.00-12.00) mmol/L BUN (9.0-27.0) mg/dL Est GFR (CKD-EPI) (>=60) BUN/Creatinine Ratio (12.00-20.00) Ratio Glucose (70-110) mg/dL POC Glucose (mg/dL) 415 H 195 H (70-110) mg/dL Assessment and Plan Assessment: Acute on chronic hypoxemic respiratory failure secondary to acute exacerbation of systolic congestive heart failure. Acute kidney injury. Troponin leak. Oxygen dependent chronic obstructive pulmonary disease. Former smoker. Coronary artery disease with previous coronary artery bypass grafting. History of aortic stenosis with previous TAVR. Diabetes mellitus, type II. Hypertension. Hyperlipidemia. History of gout. Moderate pulmonary hypertension. Plan: Plan dated October 14, 2024. The patient continues on appropriate medications. Antibiotics can be discontinued. Labs, x-rays, and medications are reviewed. Clinically, the patient appears to be much better. He is sitting on the side of the bed. He remains in the ER, room 18. The patient is on an insulin drip at 14 units an hour, and nasal O2 at 3 L. No additional recommendations are made. We will continue to follow. Plan dated October 17, 2024. The patient is seen today in room 481. He is sitting on the edge of his bed. He is on 3 L. He is not having any shortness of breath or difficulty breathing. He is feeling much better. He still has some residual lower extremity edema. Labs, x-rays, and medications are reviewed. In my opinion, the patient could be discharged home. No additional recommendations at this time. Prognosis is guarded. The patient is moving to this area, and will need to establish himself with a family doctor, and a load tallier. Time with Patient: Less than 30
[2024-10-17 09:41] LABS: BUN/Creat Ratio 30.67 Ratio (12.00-20.00); Calcium 9.2 mg/dL (8.7-10.3); Carbon Dioxide 29.2 mmol/L (21.6-31.8); Chloride 100 mmol/L (96-109); Glucose 207 mg/dL (70-110); Potassium 4.6 mmol/L (3.5-5.5); Sodium 141 mmol/L (135-145)
[2024-10-17 11:33] LABS: Glucose,Whole Blood 265 mg/dL (70-110)
--- NOTE | 2024-10-17 13:14 | P.PN ---
Subjective Progress Note Date: 10/17/24 This is Terrance Perez NP, I'm dictating on behalf of Dr. Bojorquez's H&P and A&P. Patient was interviewed and examined. Patient is a pleasant 79-year-old male who presented to the hospital with shortness of breath, and exhibited an acute exacerbation of COPD with some congestive heart failure. Patient reports that he is feeling much better today. He is denying chest pain, shortness of breath, heart palpitations. Patient's blood pressures appear to be fluctuating somewhat, but are otherwise fairly co ntrolled. GENERAL: Well-appearing, well-nourished and in no acute distress. NECK: Supple without JVD or thyromegaly. LUNGS: Breath sounds clear to auscultation bilaterally. Respiration equal and unlabored. No wheezes, rales or rhonchi. HEART: Regular rate and rhythm without murmurs, rubs or gallops. S1 and S2 heard. EXTREMITIES: Normal range of motion, no edema. No clubbing or cyanosis. Per ipheral pulses intact and strong. VITALS: Temp 98.2, pulse 59, respirations 16, blood pressure 127/76, O2 saturation 97% on 3 L TELEMETRY: Normal sinus rhythm LABS: Sodium 141, potassium 4.6, BUN 46, creatinine 1.5, calcium 9.2 IMPRESSION: 1. Acute exacerbation of COPD 2. Acute on chronic heart failure with reduced EF 3. Coronary artery disease with previous CABG 4. History of TAVR 5. CKD 6. Minimally elevated troponin 7. Hypertension 8. Hyperlipidemia 9. Diabetes 10. Obesity PLAN: Continue oral Lasix. Start losartan 25 mg daily tomorrow. No further recommendations from a cardiology standpoint. Objective - Vital Signs Vital signs: Vital Signs Temp 98.2 F 10/17/24 07:21 Pulse 59 L 10/17/24 07:21 Resp 16 10/17/24 07:21 BP 127/76 10/17/24 07:21 Pulse Ox 97 10/17/24 09:41 FiO2 Intake & Output 10/16/24 10/17/24 10/17/24 18:59 06:59 18:59 Weight 113.9 kg Other: # Voids 4 - Labs CBC & Chem 7: 10/14/24 03:58 10/17/24 02:39 Labs: Abnormal Lab Results - Last 24 Hours (Table) 10/16/24 10/16/24 10/17/24 Range/Units 16:15 20:40 02:39 BUN 46.0 H (9.0-27.0) mg/dL Est GFR (CKD-EPI) 47 L (>=60) BUN/Creatinine Ratio 30.67 H (12.00-20.00) Ratio Glucose 207 H (70-110) mg/dL POC Glucose (mg/dL) 315 H 415 H (70-110) mg/dL 10/17/24 10/17/24 Range/Units 06:26 11:31 BUN (9.0-27.0) mg/dL Est GFR (CKD-EPI) (>=60) BUN/Creatinine Ratio (12.00-20.00) Ratio Glucose (70-110) mg/dL POC Glucose (mg/dL) 195 H 265 H (70-110) mg/dL
--- NOTE | 2024-10-17 13:16 | P.PN ---
Subjective Progress Note Date: 10/17/24 79 years old male with past medical history of multiple medical problems as below including COPD and for follow-up with Dr. Bell and heart failure and he follow-up with Dr. Peterson. Coronary artery disease status post CABG and stent placement. Chronic kidney disease stage III. Chronic hypoxic respiratory failure on 3 L oxygen via nasal cannula Patient presents because of worsening dyspnea over 3 to 4 days. He has chronic cough with little phlegm. He denies chest pain No overt GI/ symptoms. He has mild headache but no dizziness weakness or numbness He denies smoking alcohol or illicit drugs. He is afebrile. He is saturating 96% on 4 L oxygen via nasal cannula He has unremarkable CBC, liver enzymes. Creatinine is elevated at baseline 1.5. Recently his 1.4-1.5. INR 0.9. Mildly elevated troponin 0.04 proBNP is high at 2440 D-dimer 0.64 Ejection fraction is 45% on echo from 05/14/2029 10/14/2024 Patient dyspnea is better He has minimal distal capitation but 3+ bilateral pitting leg edema. He sitting up at the bedside. He drinks more water, patient consult with fluid restriction. However I am not sure if he is going to follow-up the recommendation. Risk and benefit explained No chest pain He is at 2 L oxygen via nasal cannula saturating 97%. At home he uses 3 L. Patient confirms he has oxygen at home. Patient currently on IV Lasix 40 mg twice daily. Also he is on prednisone 40 mg for possible COPD exacerbation Patient has chronic cough. No recent worsening. We can discontinue Zithromax. 10/15 Patient feels better, breathing is better No chest pain Creatinine 1.4 Patient wants to is on the fluid restriction we will go down from 1500 up to 1800 mL, patient informed and he agrees Pulmonary team on the case and possible may be discharge tomorrow morning 10/16 Patient breathing is not worse He looks pleasant and happy with the progress he making. Patient request to stay 1 more day Nurseryman Assistant recommend to keep diuretics and monitoring since he has significant leg swelling Patient is happy with the level of fluid restriction now. Patient was counseled to keep fluid restriction upon discharge and he agrees. No other new complaint 10/17: Patient seen and evaluated at bedside, patient on 3 L of oxygen cardiology would want to monitor patient overnight. blood work reviewed creatinine 1.5, potential discharge within the next 24 hours EXAM GENERAL: The patient is alert and oriented x3, not in any acute distress. Well developed, well nourished. Obese HEENT: Pupils are round and equally reacting to light. EOMI. No scleral icterus. No conjunctival pallor. Normocephalic, atraumatic. No pharyngeal erythema. No thyromegaly. CARDIOVASCULAR: S1 and S2 present. No murmurs, rubs, or gallops. PULMONARY: Chest is clear to auscultation, no wheezing , no crackles. ABDOMEN: Soft, nontender, nondistended, normoactive bowel sounds. No palpable organomegaly. MUSCULOSKELETAL: No joint swelling or deformity. -EXTREMITIES: No cyanosis, clubbing, 3+ bilateral pitting leg edema NEUROLOGICAL: Gross neurological examination did not reveal any focal deficits. SKIN: No rashes. no petechiae. Assessment and Plan * acute on chronic hypoxemic respiratory failure secondary to congestive heart failure exacerbation * Acute on chronic heart failure systolic dysfunction * elevated troponin could be secondary to heart failure and kidney disease * COPD * Coronary artery disease status post CABG and stent placement. * Chronic kidney disease stage III. * Chronic hypoxic respiratory failure on 3 L oxygen via nasal cannula * Obesity with BMI 35.1 Plan: * in regards to respiratory failure patient remains on 3 L of oxygen, continue diuresis with Lasix, wean down from 4 L * , in regards to congestive heart failure continue guideline directed medical therapy on metoprolol, Imdur, Lasix, aspirin, Lipitor * in regards to COPD continue breathing treatments, pulmonary medicine following, prednisone and azithromycin discontinue * Cardiology and pulmonary consult * Labs and medication were reviewed. * DVT prophylaxis: Sc heparin * GI Prophylaxis: Pepcid Objective - Vital Signs Vital signs: Vital Signs Temp 98.2 F 10/17/24 07:21 Pulse 59 L 10/17/24 07:21 Resp 16 10/17/24 07:21 BP 127/76 10/17/24 07:21 Pulse Ox 97 10/17/24 09:41 FiO2 Intake & Output 10/16/24 10/17/24 10/17/24 18:59 06:59 18:59 Weight 113.9 kg Other: # Voids 4 - Labs CBC & Chem 7: 10/14/24 03:58 10/17/24 02:39 Labs: Abnormal Lab Results - Last 24 Hours (Table) 10/16/24 10/16/24 10/16/24 Range/Units 11:24 16:15 20:40 BUN (9.0-27.0) mg/dL Est GFR (CKD-EPI) (>=60) BUN/Creatinine Ratio (12.00-20.00) Ratio Glucose (70-110) mg/dL POC Glucose (mg/dL) 218 H 315 H 415 H (70-110) mg/dL 10/17/24 10/17/24 Range/Units 02:39 06:26 BUN 46.0 H (9.0-27.0) mg/dL Est GFR (CKD-EPI) 47 L (>=60) BUN/Creatinine Ratio 30.67 H (12.00-20.00) Ratio Glucose 207 H (70-110) mg/dL POC Glucose (mg/dL) 195 H (70-110) mg/dL
[2024-10-17 17:19] LABS: Glucose,Whole Blood 360 mg/dL (70-110)
[2024-10-17 20:28] LABS: Glucose,Whole Blood 396 mg/dL (70-110)
[2024-10-18 06:24] LABS: Glucose,Whole Blood 242 mg/dL (70-110)
[2024-10-18 09:50] LABS: HCT 48.3 % (39.6-50.0); HGB 16.1 g/dL (13.0-17.0); MCH 32.4 pg (27.0-32.0); MCV 97.2 FL (80.0-97.0); RBC 4.97 X 10*6/uL (4.40-5.60); WBC 9.44 X 10*3/uL (4.50-10.00)
[2024-10-18 09:51] LABS: MCHC 33.3 g/dL (32.0-37.0); Mean Platelet Volume 11.1 FL (9.5-12.2); NRBC Per 100 WBC 0 X 10*3/uL (0.00-0.01); Platelet Count 190 X 10*3/uL (140-440); RDW 14.8 % (11.5-14.5)
[2024-10-18 10:03] LABS: BUN/Creat Ratio 31.44 Ratio (12.00-20.00); Blood Urea Nitrogen 56.6 mg/dL (9.0-27.0); Calcium 9.7 mg/dL (8.7-10.3); Carbon Dioxide 31.6 mmol/L (21.6-31.8); Chloride 92 mmol/L (96-109); Glucose 249 mg/dL (70-110); Potassium 4.2 mmol/L (3.5-5.5); Sodium 138 mmol/L (135-145)
[2024-10-18] MEDS: LOSARTAN 25 MG TAB PO SCH (10:04)
[2024-10-18 11:53] LABS: Glucose,Whole Blood 310 mg/dL (70-110)
--- NOTE | 2024-10-18 11:56 | P.PN ---
Subjective Progress Note Date: 10/18/24 This is an 79-year-old gentleman with a known history of chronic obstructive pulmonary disease, former smoker, home oxygen at 3 L 27/05, diabetes mellitus, coronary artery disease with previous CABG, congestive heart failure hypertension, hyperlipidemia. He presented here to the emergency room early this morning with complaints of increasing shortness of breath and lower extremity edema. Chest x-ray reveals bibasilar atelectasis. 15.4. Platelets 185. D-dimer 0.64. Sodium 138. Potassium 4.0. Bicarb 21. BUN 38. Creatinine 1.58. Glucose 236. Troponin 0.041. proBNP 2440. Viral screen negative. He has been initiated on IV diuretics. Initiated on antibiotics. Procalcitonin pending. He is seen in consultation in the emergency department. Currently sitting up on a stretcher. Awake and alert in no acute distress. Maintaining O2 saturations in the 90s on 4 L/min per nasal cannula. He is afebrile. Hemodynamically stable. Progress note dated October 14, 2024. 79-year-old male seen in the emergency department yesterday, in consultation. The patient was in the emergency department this morning as well. The patient is feeling better. He is less short of breath. He is not back to baseline. He is on an insulin drip at 14 units an hour, and nasal O2 at 3 L. His procalciton in level is pending. We believe that the patient has CHF exacerbation, and a mild COPD exacerbation. Laboratory data includes a sodium 141, potassium 3.7, chlorides 105, CO2 25, BUN 39, creatinine 1.40. Glucose is 385. Calcium is 9.1. The patient's procalcitonin level is normal at 0.10. The patient is seen today October 15, 2024 in follow-up on the regular medical floor. He is currently sitting up in bed. Awake and alert in no acute distress. Breathing better today compared to yesterday. Not quite back to his baseline. He is maintaining O2 saturations in the 90s on 3 L/min per nasal cannula. No IV fluids. He remains on Lasix 40 mg IV every 12 hours. X-ray continues to show stable mild congestive heart failure. Sodium 141. Potassium 4.1. Bicarb 25. BUN 35. Creatinine 1.4. Glucose 246. Hemoglobin A1c 10.7%. He remains on bronchodilators and steroids. The patient is seen today October 16, 2024 in follow-up on the regular medical floor. He is currently sitting up at the bedside. Awake and alert in no acute distress. Denies any worsening shortness of breath, cough or congestion. Maintaining good O2 saturations in the upper 90s on 3 L nasal cannula. Afebrile . Hemodynamically stable. Sodium 142. Potassium 4.4. Bicarb 24. BUN 41. Creatinine 1.5. Glucose 187. He remains on Lasix 40 mg IV every 12 hours. Continued on bronchodilators and steroids. Patient is seen today October 18, 2024 in follow-up on the regular medical floor. He is awake and alert in no acute distress. Sitting up in bed. Maintaining good O2 saturations in the 90s on 3 L nasal cannula. He is afebrile. Hemodynamically stable. No worsening shortness of breath, cough or congestion. He has been transition to oral diuretics. To be started on losartan today per cardiology. White count 9.4. Hemoglobin 16.1. Platelets 190. Sodium 138. Potassium 4.2. Bicarb 32. BUN 57. Creatinine 1.8. Glucose 249. Objective - Vital Signs Vital signs: Vital Signs Temp 97.6 F 10/18/24 07:35 Pulse 61 10/18/24 07:35 Resp 16 10/18/24 07:35 BP 125/80 10/18/24 07:35 Pulse Ox 98 10/18/24 07:35 FiO2 Intake & Output 10/17/24 10/18/24 10/18/24 18:59 06:59 18:59 Intake Total 900 Output Total 200 Balance 900 -200 Weight 111.4 kg Intake: Oral 900 Output: Urine 200 Other: # Voids 5 # Bowel Movements 1 - Exam GENERAL EXAM: Alert, pleasant 79-year-old male, sitting up in bed, on 3 L nasal cannula, comfortable in no apparent distress. HEAD: Normocephalic. EYES: Normal reaction of pupils, equal size. NOSE: Clear with pink turbinates. THROAT: No erythema or exudates. NECK: No masses, no JVD. CHEST: No chest wall deformity. LUNGS: Equal air entry with crackles in the bilateral bases. CVS: S1 and S2 normal with no audible murmur, regular rhythm. ABDOMEN: No hepatosplenomegaly, normal bowel sounds, no guarding or rigidity. SPINE: No scoliosis or deformity SKIN: No rashes CENTRAL NERVOUS SYSTEM: No focal deficits, tone is normal in all 4 extremities. EXTREMITIES: There is 1+ peripheral edema. No clubbing, no cyanosis. Peripheral pulses are intact. - Labs CBC & Chem 7: 10/18/24 04:03 10/18/24 04:03 Labs: Abnormal Lab Results - Last 24 Hours (Table) 10/17/24 10/17/24 10/18/24 Range/Units 17:17 20:27 04:03 MCV 97.2 H (80.0-97.0) FL MCH 32.4 H (27.0-32.0) pg RDW 14.8 H (11.5-14.5) % Chloride (96-109) mmol/L Anion Gap (4.00-12.00) mmol/L BUN (9.0-27.0) mg/dL Creatinine (0.6-1.5) mg/dL Est GFR (CKD-EPI) (>=60) BUN/Creatinine Ratio (12.00-20.00) Ratio Glucose (70-110) mg/dL POC Glucose (mg/dL) 360 H 396 H (70-110) mg/dL 10/18/24 10/18/24 Range/Units 04:03 06:23 MCV (80.0-97.0) FL MCH (27.0-32.0) pg RDW (11.5-14.5) % Chloride 92 L (96-109) mmol/L Anion Gap 14.40 H (4.00-12.00) mmol/L BUN 56.6 H (9.0-27.0) mg/dL Creatinine 1.8 H (0.6-1.5) mg/dL Est GFR (CKD-EPI) 38 L (>=60) BUN/Creatinine Ratio 31.44 H (12.00-20.00) Ratio Glucose 249 H (70-110) mg/dL POC Glucose (mg/dL) 242 H (70-110) mg/dL Assessment and Plan Assessment: Acute on chronic hypoxemic respiratory failure secondary to acute exacerbation of systolic congestive heart failure Acute kidney injury Troponin leak Acute exacerbation of oxygen dependent chronic obstructive pulmonary disease Former smoker Coronary artery disease with previous coronary artery bypass grafting History of aortic stenosis with previous TAVR Diabetes mellitus, type II Hypertension Hyperlipidemia History of gout Moderate pulmonary hypertension Plan: The patient was seen and evaluated Labs and medications reviewed Continue oral diuretics Continue bronchodilators The patient does have home oxygen Home once cleared by cardiology This patient was seen independently by the pulmonary nurse practitioner addressing pulmonary issues I have personally seen and examined the patient, performed the documentation and the assessment and plan as written. Number of minutes spent on the visit: 24 Dictation was produced using [employer] dictation software. Please excuse any grammatical, word or spelling errors.
--- NOTE | 2024-10-18 12:16 | P.PN ---
Subjective Progress Note Date: 10/18/24 79 years old male with past medical history of multiple medical problems as below including COPD and for follow-up with Dr. Bell and heart failure and he follow-up with Dr. Peterson. Coronary artery disease status post CABG and stent placement. Chronic kidney disease stage III. Chronic hypoxic respiratory failure on 3 L oxygen via nasal cannula Patient presents because of worsening dyspnea over 3 to 4 days. He has chronic cough with little phlegm. He denies chest pain No overt GI/ symptoms. He has mild headache but no dizziness weakness or numbness He denies smoking alcohol or illicit drugs. He is afebrile. He is saturating 96% on 4 L oxygen via nasal cannula He has unremarkable CBC, liver enzymes. Creatinine is elevated at baseline 1.5. Recently his 1.4-1.5. INR 0.9. Mildly elevated troponin 0.04 proBNP is high at 2440 D-dimer 0.64 Ejection fraction is 45% on echo from 05/14/2029 10/14/2024 Patient dyspnea is better He has minimal distal capitation but 3+ bilateral pitting leg edema. He sitting up at the bedside. He drinks more water, patient consult with fluid restriction. However I am not sure if he is going to follow-up the recommendation. Risk and benefit explained No chest pain He is at 2 L oxygen via nasal cannula saturating 97%. At home he uses 3 L. Patient confirms he has oxygen at home. Patient currently on IV Lasix 40 mg twice daily. Also he is on prednisone 40 mg for possible COPD exacerbation Patient has chronic cough. No recent worsening. We can discontinue Zithromax. 10/15 Patient feels better, breathing is better No chest pain Creatinine 1.4 Patient wants to is on the fluid restriction we will go down from 1500 up to 1800 mL, patient informed and he agrees Pulmonary team on the case and possible may be discharge tomorrow morning 10/16 Patient breathing is not worse He looks pleasant and happy with the progress he making. Patient request to stay 1 more day Technical Intern recommend to keep diuretics and monitoring since he has significant leg swelling Patient is happy with the level of fluid restriction now. Patient was counseled to keep fluid restriction upon discharge and he agrees. No other new complaint 10/17: Patient seen and evaluated at bedside, patient on 3 L of oxygen cardiology would want to monitor patient overnight. blood work reviewed creatinine 1.5, potential discharge within the next 24 hours 10/18- patient seen and evaluated at bedside, patient remains on 3 L of oxygen, afebrile, CBC remained stable WBC 16.1 platelet 190 blood glucose 242, plan to discharge home today with oxygen which is at baseline however started complaining of worsening shortness of breath, will monitor overnight EXAM GENERAL: The patient is alert and oriented x3, not in any acute distress. Well developed, well nourished. Obese HEENT: Pupils are round and equally reacting to light. EOMI. No scleral icterus. No conjunctival pallor. Normocephalic, atraumatic. No pharyngeal erythema. No thyromegaly. CARDIOVASCULAR: S1 and S2 present. No murmurs, rubs, or gallops. PULMONARY: Chest is clear to auscultation, no wheezing , no crackles. ABDOMEN: Soft, nontender, nondistended, normoactive bowel sounds. No palpable organomegaly. MUSCULOSKELETAL: No joint swelling or deformity. -EXTREMITIES: No cyanosis, clubbing, 3+ bilateral pitting leg edema NEUROLOGICAL: Gross neurological examination did not reveal any focal deficits. SKIN: No rashes. no petechiae. Assessment and Plan * acute on chronic hypoxemic respiratory failure secondary to congestive heart failure exacerbation * Acute on chronic heart failure systolic dysfunction * elevated troponin could be secondary to heart failure and kidney disease * COPD * Coronary artery disease status post CABG and stent placement. * Chronic kidney disease stage III. * Chronic hypoxic respiratory failure on 3 L oxygen via nasal cannula * Obesity with BMI 35.1 Plan: * in regards to respiratory failure patient remains on 3 L of oxygen, continue diuresis with Lasix, wean down from 4 L * , in regards to congestive heart failure continue guideline directed medical therapy on metoprolol, Imdur, Lasix, aspirin, Lipitor * in regards to COPD continue breathing treatments, pulmonary medicine following, prednisone and azithromycin discontinue * Cardiology and pulmonary consult * Labs and medication were reviewed. * DVT prophylaxis: Sc heparin * GI Prophylaxis: Pepcid Objective - Vital Signs Vital signs: Vital Signs Temp 97.6 F 10/18/24 07:35 Pulse 61 10/18/24 07:35 Resp 16 10/18/24 07:35 BP 125/80 10/18/24 07:35 Pulse Ox 98 10/18/24 07:35 FiO2 Intake & Output 10/17/24 10/18/24 10/18/24 18:59 06:59 18:59 Intake Total 900 Output Total 200 Balance 900 -200 Weight 111.4 kg Intake: Oral 900 Output: Urine 200 Other: # Voids 5 # Bowel Movements 1 - Labs CBC & Chem 7: 10/18/24 04:03 10/18/24 04:03 Labs: Abnormal Lab Results - Last 24 Hours (Table) 10/17/24 10/17/24 10/18/24 Range/Units 17:17 20:27 04:03 MCV 97.2 H (80.0-97.0) FL MCH 32.4 H (27.0-32.0) pg RDW 14.8 H (11.5-14.5) % Chloride (96-109) mmol/L Anion Gap (4.00-12.00) mmol/L BUN (9.0-27.0) mg/dL Creatinine (0.6-1.5) mg/dL Est GFR (CKD-EPI) (>=60) BUN/Creatinine Ratio (12.00-20.00) Ratio Glucose (70-110) mg/dL POC Glucose (mg/dL) 360 H 396 H (70-110) mg/dL 10/18/24 10/18/24 10/18/24 Range/Units 04:03 06:23 11:51 MCV (80.0-97.0) FL MCH (27.0-32.0) pg RDW (11.5-14.5) % Chloride 92 L (96-109) mmol/L Anion Gap 14.40 H (4.00-12.00) mmol/L BUN 56.6 H (9.0-27.0) mg/dL Creatinine 1.8 H (0.6-1.5) mg/dL Est GFR (CKD-EPI) 38 L (>=60) BUN/Creatinine Ratio 31.44 H (12.00-20.00) Ratio Glucose 249 H (70-110) mg/dL POC Glucose (mg/dL) 242 H 310 H (70-110) mg/dL
[2024-10-18 16:44] LABS: Glucose,Whole Blood 309 mg/dL (70-110)
[2024-10-18 21:13] LABS: Glucose,Whole Blood 363 mg/dL (70-110)
[2024-10-19 06:30] LABS: Glucose,Whole Blood 178 mg/dL (70-110)
[2024-10-19 08:01] VITALS: RESP 18
[2024-10-19 08:41] LABS: HCT 49.7 % (39.6-50.0); HGB 16.1 g/dL (13.0-17.0); MCH 31.8 pg (27.0-32.0); MCHC 32.4 g/dL (32.0-37.0); MCV 98.2 FL (80.0-97.0); Mean Platelet Volume 11.6 FL (9.5-12.2); NRBC Per 100 WBC 0 X 10*3/uL (0.00-0.01); Platelet Count 166 X 10*3/uL (140-440); RBC 5.06 X 10*6/uL (4.40-5.60); RDW 14.7 % (11.5-14.5); WBC 9.38 X 10*3/uL (4.50-10.00)
[2024-10-19 08:52] LABS: BUN/Creat Ratio 34.84 Ratio (12.00-20.00); Blood Urea Nitrogen 66.2 mg/dL (9.0-27.0); Calcium 9.6 mg/dL (8.7-10.3); Carbon Dioxide 30.1 mmol/L (21.6-31.8); Chloride 92 mmol/L (96-109); Glucose 233 mg/dL (70-110); Sodium 138 mmol/L (135-145)
[2024-10-19 11:08] LABS: Glucose,Whole Blood 392 mg/dL (70-110)
[2024-10-19 14:25] VITALS: PULSE 76; TEMP 97.5
[2024-10-19 14:26] VITALS: BP 95/56
--- NOTE | 2024-10-19 18:29 | P.PN ---
Subjective Progress Note Date: 10/19/24 This is an 79-year-old gentleman with a known history of chronic obstructive pulmonary disease, former smoker, home oxygen at 3 L 27/05, diabetes mellitus, coronary artery disease with previous CABG, congestive heart failure hypertension, hyperlipidemia. He presented here to the emergency room early thi s morning with complaints of increasing shortness of breath and lower extremity edema. Chest x-ray reveals bibasilar atelectasis. 15.4. Platelets 185. D- dimer 0.64. Sodium 138. Potassium 4.0. Bicarb 21. BUN 38. Creatinine 1.58. Glucose 236. Troponin 0.041. proBNP 2440. Viral screen negative. He has been initiated on IV diuretics. Initiated on antibiotics. Procalcitonin pending. He is seen in consultation in the emergency department. Currently sitting up on a stretcher. Awake and alert in no acute distress. Maintaining O2 saturations in the 90s on 4 L/min per nasal cannula. He is afebrile. Hemodynamically stable. Progress note dated October 14, 2024. 79-year-old male seen in the emergency department yesterday, in consultation. The patient was in the emergency department this morning as well. The patient is feeling better. He is less short of breath. He is not back to baseline. He is on an insulin drip at 14 units an hour, and nasal O2 at 3 L. His procalcit onin level is pending. We believe that the patient has CHF exacerbation, and a mild COPD exacerbation. Laboratory data includes a sodium 141, potassium 3.7, chlorides 105, CO2 25, BUN 39, creatinine 1.40. Glucose is 385. Calcium is 9.1. The patient's procalcitonin level is normal at 0.10. The patient is seen today October 15, 2024 in follow-up on the regular medical floor. He is currently sitting up in bed. Awake and alert in no acute distress. Breathing better today compared to yesterday. Not quite back to his baseline. He is maintaining O2 saturations in the 90s on 3 L/min per nasal cannula. No IV fluids. He remains on Lasix 40 mg IV every 12 hours. X-ray continues to show stable mild congestive heart failure. Sodium 141. Potassium 4.1. Bicarb 25. BUN 35. Creatinine 1.4. Glucose 246. Hemoglobin A1c 10.7%. He remains on bronchodilators and steroids. The patient is seen today October 16, 2024 in follow-up on the regular medical floor. He is currently sitting up at the bedside. Awake and alert in no acute distress. Denies any worsening shortness of breath, cough or congestion. Maintaining good O2 saturations in the upper 90s on 3 L nasal cannula. Afebri le. Hemodynamically stable. Sodium 142. Potassium 4.4. Bicarb 24. BUN 41. Creatinine 1.5. Glucose 187. He remains on Lasix 40 mg IV every 12 hours. Continued on bronchodilators and steroids. Patient is seen today October 18, 2024 in follow-up on the regular medical floor. He is awake and alert in no acute distress. Sitting up in bed. Maintaining good O2 saturations in the 90s on 3 L nasal cannula. He is afebrile. Hemodynamically stable. No worsening shortness of breath, cough or congestion. He has been transition to oral diuretics. To be started on losartan today per cardiology. White count 9.4. Hemoglobin 16.1. Platelets 190. Sodium 138. Potassium 4.2. Bicarb 32. BUN 57. Creatinine 1.8. Glucose 249. On 10/19/2024, the patient is being seen for a follow-up. The patient is being treated for an acute exacerbation of CHF and the patient is known to have chroni c oxygen dependent COPD. He is post carotid bypass surgery and the patient has undergone a previous TAVR procedure. Other comorbidities include diabetes mellitus type 2, hypertension hyperlipidemia and secondary pulmonary pretension. On today's evaluation, the patient remains on 3 L of oxygen by nasal cannula with a pulse ox of 93%. No significant shortness of breath. The patient was transition to oral diuretics and the patient is currently on Lasix 40 mg p.o. twice a day. The patient is also on metoprolol 100 mg XL 1 tablet a day, Cozaar 25 mg p.o. daily, and Lipitor 40 mg p.o. daily. The patient is on Farxiga 10 mg p.o. daily. He is on Imdur 30 mg p.o. daily. Blood work from today shows a BUN of 66 with a creatinine of 1.9. Sodium levels at 138. WBC count of 9.3 with a hemoglobin 16.1 and a platelet count of 166. Blood sugar control is with Tresiba 50 units every morning and Amaryl 4 mg p.o. twice daily. He is also on Farxiga. Objective - Vital Signs Vital signs: Vital Signs Temp 97.8 F 10/19/24 07:05 Pulse 61 10/19/24 07:05 Resp 18 10/19/24 07:05 BP 105/62 10/19/24 07:05 Pulse Ox 98 10/19/24 07:05 FiO2 Intake & Output 10/18/24 10/19/24 10/19/24 18:59 06:59 18:59 Intake Total 230 Output Total 200 Balance -200 230 Weight 32.5 kg Intake: Oral 230 Output: Urine 200 Other: Voiding Method Toilet # Voids 1 - Exam GENERAL EXAM: Alert, pleasant 79-year-old male, sitting up in bed, on 3 L nasal cannula, comfortable in no apparent distress. HEAD: Normocephalic. EYES: Normal reaction of pupils, equal size. NOSE: Clear with pink turbinates. THROAT: No erythema or exudates. NECK: No masses, no JVD. CHEST: No chest wall deformity. LUNGS: Equal air entry with crackles in the bilateral bases. CVS: S1 and S2 normal with no audible murmur, regular rhythm. ABDOMEN: No hepatosplenomegaly, normal bowel sounds, no guarding or rigidity. SPINE: No scoliosis or deformity SKIN: No rashes CENTRAL NERVOUS SYSTEM: No focal deficits, tone is normal in all 4 extremities. EXTREMITIES: There is 1+ peripheral edema. No clubbing, no cyanosis. Peripheral pulses are intact. - Labs CBC & Chem 7: 10/19/24 02:55 10/19/24 02:55 Labs: Abnormal Lab Results - Last 24 Hours (Table) 10/18/24 10/18/24 10/18/24 Range/Units 11:51 16:42 21:11 MCV (80.0-97.0) FL RDW (11.5-14.5) % Chloride (96-109) mmol/L Anion Gap (4.00-12.00) mmol/L BUN (9.0-27.0) mg/dL Creatinine (0.6-1.5) mg/dL Est GFR (CKD-EPI) (>=60) BUN/Creatinine Ratio (12.00-20.00) Ratio Glucose (70-110) mg/dL POC Glucose (mg/dL) 310 H 309 H 363 H (70-110) mg/dL 10/19/24 10/19/24 10/19/24 Range/Units 02:55 02:55 06:29 MCV 98.2 H (80.0-97.0) FL RDW 14.7 H (11.5-14.5) % Chloride 92 L (96-109) mmol/L Anion Gap 15.90 H (4.00-12.00) mmol/L BUN 66.2 H (9.0-27.0) mg/dL Creatinine 1.9 H (0.6-1.5) mg/dL Est GFR (CKD-EPI) 35 L (>=60) BUN/Creatinine Ratio 34.84 H (12.00-20.00) Ratio Glucose 233 H (70-110) mg/dL POC Glucose (mg/dL) 178 H (70-110) mg/dL 10/19/24 Range/Units 10:56 MCV (80.0-97.0) FL RDW (11.5-14.5) % Chloride (96-109) mmol/L Anion Gap (4.00-12.00) mmol/L BUN (9.0-27.0) mg/dL Creatinine (0.6-1.5) mg/dL Est GFR (CKD-EPI) (>=60) BUN/Creatinine Ratio (12.00-20.00) Ratio Glucose (70-110) mg/dL POC Glucose (mg/dL) 392 H (70-110) mg/dL Assessment and Plan Plan: Acute on chronic hypoxemic respiratory failure secondary to acute exacerbation of systolic congestive heart failure, currently on 3 days of oxygen via nasal cannula Acute kidney injury, creatinine stable at 1.3 and the patient is currently on oral diuretics Troponin leak, likely type II ischemia Acute exacerbation of oxygen dependent chronic obstructive pulmonary disease, improved Former smoker Coronary artery disease with previous coronary artery bypass grafting History of aortic stenosis with previous TAVR Diabetes mellitus, type II Hypertension Hyperlipidemia History of gout Moderate pulmonary hypertension Plan: Monitor creatinine Continue oral diuretics Continue bronchodilators The patient does have home oxygen, arrange home O2 Will follow-up
== END 2024-10-19 15:56 | disposition home or self-care (01) | DRG 291 ==
LOC: EC 04:05 → 3SCARD 06:07 → OBSVTOIN 10-14 07:16 → 3SCARD 10-14 12:13 → 4SSUR 10-14 18:20
PROVIDERS: ADMIT Hospitalist; ATTEND Hospitalist
DX: I13.0 Hypertensive heart and chronic kidney disease with heart failure and stage 1 through stage 4 chronic kidney disease, or unspecified chronic kidney disease (principal); I50.23 Acute on chronic systolic (congestive) heart failure; J96.21 Acute and chronic respiratory failure with hypoxia; J44.1 Chronic obstructive pulmonary disease with (acute) exacerbation; J98.11 Atelectasis; N17.9 Acute kidney failure, unspecified; E78.5 Hyperlipidemia, unspecified; E66.9 Obesity, unspecified; E11.22 Type 2 diabetes mellitus with diabetic chronic kidney disease; H91.90 Unspecified hearing loss, unspecified ear; I25.10 Atherosclerotic heart disease of native coronary artery without angina pectoris; I27.20 Pulmonary hypertension, unspecified; I42.9 Cardiomyopathy, unspecified; N18.30 Chronic kidney disease, stage 3 unspecified; M10.9 Gout, unspecified; I45.10 Unspecified right bundle-branch block; Z68.35 Body mass index [BMI] 35.0-35.9, adult; Z95.1 Presence of aortocoronary bypass graft; Z79.84 Long term (current) use of oral hypoglycemic drugs; Z79.82 Long term (current) use of aspirin; Z88.8 Allergy status to other drugs, medicaments and biological substances; Z95.2 Presence of prosthetic heart valve; Z87.891 Personal history of nicotine dependence; Z99.81 Dependence on supplemental oxygen
CPT/HCPCS: 36415; 71045; 71046; 80048; 80051; 80053; 80061; 82009; 82565; 82947; 83036; 83605; 83721; 83735; 83880; 84100; 84145; 84484; 84520; 85025; 85027; 85379; 85610; 85730; 87636; 93005; 94640; 94760; 96361; 96374; 96375; 96376; 99285